=== PATIENT | male | born 1940 | race Caucasian/White ===

== ENCOUNTER → 2016-06-25 | Outpatient (CLI) | payer BC ==
[~2016-06-25] MED LIST: ATEN-173 PO; ENBER15 PO; IBUP-1459 PO; LRT5 PO; OXYC1TAB3 PO; PRLSR20
[2016-06-25 09:32] LABS: BASO % 0.3 %; BASO ABS # 0.02 K/uL (0-0.2); COMPLETE YES; EOS % 3.7 %; HEMATOCRIT 48.7 % (42-52); IG% 0.3 %; MEAN CELL VOLUME 90.2 fL (80-100); MEAN CORPUSCULAR HEMOGLOBIN 30.4 pg (25-34); MEAN CORPUSCULAR HGB CONC 33.7 g/dl (32-36); MEAN PLATELET VOLUME 10.1 fL (7.4-10.4); MONO % 7.9 %; NEUT % 58.8 %; PLATELET COUNT 189 K/uL (130-400); WHITE BLOOD COUNT 7.23 K/uL (4.8-10.8)
[2016-06-25 10:10] LABS: ALT/SGPT 38 U/L (12-78); AST/SGOT 19 U/L (15-37); BLOOD UREA NITROGEN 26 mg/dl (7-18); BUN/CREATININE RATIO 21.4 (10-20); CALCIUM 8.6 mg/dl (8.5-10.1); CARBON DIOXIDE 27 mmol/L (21-32); CHLORIDE 109 mmol/L (98-107); CHOLESTEROL 191 mg/dl (0-200); GLUCOSE 97 mg/dl (70-99); POTASSIUM 4.3 mmol/L (3.5-5.1); SODIUM 142 mmol/L (136-145)
[2016-06-25 10:22] LABS: ALB/GLOB RATIO 1.1 (0.9-2); ALKALINE PHOSPHATASE 87 U/L (45-117); CHOLESTEROL/HDL RATIO 3.7; HDL CHOLESTEROL 51 mg/dl; LDL CHOLESTEROL CALCULATED 119 mg/dl; PROSTATE SPECIFIC ANTIGEN 0.118 ng/ml (0.000-4.000); TRIGLYCERIDES 103 mg/dl (0-150); VERY LOW DENSITY LIPOPROT CALC 21 mg/dl
== END | disposition home or self-care (01) ==
LOC: C.LAB1850 08:27
PROVIDERS: ATTEND Internal Medicine Pulmonary Disease
DX: C61 Malignant neoplasm of prostate (principal); I10 Essential (primary) hypertension; E78.5 Hyperlipidemia, unspecified; G47.33 Obstructive sleep apnea (adult) (pediatric)

== ENCOUNTER → 2017-04-03 | Outpatient (CLI) | payer BC | END | disposition home or self-care (01) | LOC: C.LAB1850 13:19 | PROVIDERS: ATTEND Urology | DX: C61 Malignant neoplasm of prostate (principal) ==

== ENCOUNTER → 2017-06-27 | Outpatient (CLI) | payer BC ==
[2017-06-27 10:24] LABS: BASO % 0.2 %; BASO ABS # 0.01 K/uL (0-0.2); EOS % 3.7 %; EOS ABS # 0.24 K/uL (0-0.5); HEMATOCRIT 47.4 % (42-52); HEMOGLOBIN 16.8 g/dL (14.0-18.0); IG# 0.02 K/uL (0.00-0.02); LYMPH % 27.6 %; MEAN CELL VOLUME 89.3 fL (80-100); MEAN CORPUSCULAR HEMOGLOBIN 31.6 pg (25-34); MEAN CORPUSCULAR HGB CONC 35.4 g/dl (32-36); MEAN PLATELET VOLUME 10.3 fL (7.4-10.4); MONO % 7.8 %; MONO ABS # 0.51 K/uL (0.11-0.59); NEUT % 60.4 %; NEUT ABS # 3.94 K/uL (1.4-6.5); PLATELET COUNT 175 K/uL (130-400); WHITE BLOOD COUNT 6.52 K/uL (4.8-10.8)
[2017-06-27 10:46] LABS: ALBUMIN 3.5 gm/dl (3.4-5.0); ALKALINE PHOSPHATASE 95 U/L (45-117); ALT/SGPT 36 U/L (12-78); AST/SGOT 22 U/L (15-37); BLOOD UREA NITROGEN 21 mg/dl (7-18); CALCIUM 8.5 mg/dl (8.5-10.1); CARBON DIOXIDE 24 mmol/L (21-32); CHOLESTEROL 190 mg/dl (0-200); CREATININE 1.36 mg/dl (0.60-1.40); GLUCOSE 110 mg/dl (70-99); LDL CHOLESTEROL CALCULATED 113 mg/dl; POTASSIUM 4.3 mmol/L (3.5-5.1); SODIUM 140 mmol/L (136-145); TOTAL PROTEIN 7.4 gm/dl (6.4-8.2)
== END | disposition home or self-care (01) ==
LOC: C.LAB1850 09:25
PROVIDERS: ATTEND Internal Medicine Pulmonary Disease
DX: I10 Essential (primary) hypertension (principal); C61 Malignant neoplasm of prostate; G47.33 Obstructive sleep apnea (adult) (pediatric); R41.3 Other amnesia; G62.9 Polyneuropathy, unspecified

== ENCOUNTER → 2017-09-25 | Outpatient (CLI) | payer BC ==
[~2017-09-25] MED LIST changes: +OXYC-90 PO; -OXYC1TAB3 PO
== END | disposition home or self-care (01) ==
LOC: C.LAB1850 11:14
PROVIDERS: ATTEND Urology
DX: R39.9 Unspecified symptoms and signs involving the genitourinary system (principal)

== ENCOUNTER 2019-08-24 10:52 | Observation (INO) ==
--- NOTE | 2019-07-20 15:00 | PAT Medication Instructions ---
Medication Instructions Date of Service July 20, 2019 Home Medications Medication Instructions Recorded atenolol 25 mg tablet 25 mg PO QAM #90 tab 04/30/19 gabapentin 300 mg capsule 300 mg PO HS #90 cap 06/04/19 losartan 100 mg tablet 100 mg PO DAILY #90 tab 07/13/19 aspirin [Aspirin Low Dose] 81 mg PO QAM cholecalciferol (vitamin D3) [Vitamin D3] 2,000 unit PO QAM cyanocobalamin (vitamin B-12) [Vitamin B-12] 1,000 mcg PO QAM mometasone 50 mcg/actuation nasal spray 2 sprays INTRANASAL DAILY PRN Myrbetriq 50 mg PO HS One Daily For Men 1 tab PO QAM clotrimazole-betamethasone 1 appln TOPICAL BID PRN oxybutynin chloride [Ditropan XL] 5 mg PO QAM famotidine 40 mg tablet 40 mg PO UD ibuprofen 200 - 600 mg PO UD PRN atenolol 25 mg tablet 25 mg PO QAM gabapentin 300 mg capsule 300 mg PO HS losartan 100 mg tablet 100 mg PO DAILY ASK your surgeon for instructions ibuprofen 200 - 600 mg PO UD PRN STOP taking 24 hours before surgery clotrimazole-betamethasone 1 appln TOPICAL BID PRN DO NOT take the morning of surgery oxybutynin chloride [Ditropan XL] 5 mg PO QAM losartan 100 mg tablet 100 mg PO DAILY One Daily For Men 1 tab PO QAM cholecalciferol (vitamin D3) [Vitamin D3] 2,000 unit PO QAM cyanocobalamin (vitamin B-12) [Vitamin B-12] 1,000 mcg PO QAM Take morning of surgery With a small sip of water, OTHERWISE NOTHING TO EAT OR DRINK AFTER MIDNIGHT: famotidine 40 mg tablet 40 mg PO UD atenolol 25 mg tablet 25 mg PO QAM mometasone 50 mcg/actuation nasal spray 2 sprays INTRANASAL DAILY PRN aspirin [Aspirin Low Dose] 81 mg PO QAM Take evening before surgery gabapentin 300 mg capsule 300 mg PO HS Myrbetriq 50 mg PO HS Other Notes If you have any questions please call us at [phone] or [phone] or [phone] or [phone]
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
[2019-07-21 12:10] LABS: Basophils # (auto) 0.01 K/uL (0-0.2); Basophils % (auto) 0.2 %; Eosinophils # (auto) 0.18 K/uL (0-0.5); Eosinophils % (auto) 2.9 %; Hematocrit (blood only) 44.9 % (42-52); Hemoglobin 15.5 g/dL (14.0-18.0); Immature Granulocytes # (auto) 0.01 K/uL (0.00-0.02); Immature Granulocytes % (auto) 0.2 %; Lymphocytes # (auto) 1.76 K/uL (1.2-3.4); Lymphocytes % (auto) 27.9 %; Mean Corpuscular Hemoglobin 30.9 pg (25-34); Mean Corpuscular Hgb Conc 34.5 g/dL (32-36); Mean Corpuscular Volume 89.4 fL (80-100); Mean Platelet Volume 9.8 fL (7.4-10.4); Monocytes # (auto) 0.61 K/uL (0.11-0.59); Monocytes % (auto) 9.7 %; Neutrophils # (auto) 3.74 K/uL (1.4-6.5); Neutrophils % (auto) 59.1 %; Platelet Count 208 K/uL (130-400); RDW Standard Deviation 42.2 fL (36.4-46.3); Red Blood Count 5.02 M/uL (4.7-6.1); White Blood Count 6.31 K/uL (4.8-10.8)
[2019-07-21 12:18] LABS: BUN Creatinine Ratio 14.2 (10-20); Calcium 8.9 mg/dl (8.5-10.1); Creatinine Clr Calc Pharmacy 46.2 ml/min; Est GFR (African American) 43.5; Est GFR (Non-African American) 37.5; Potassium 4.4 mmol/L (3.5-5.1)
--- NOTE | 2019-07-21 12:21 | XRay Report ---
XR chest Pre-admission PA/Lat HISTORY: 78 years-old Male pat preoperative exam. No acute chest complaints COMPARISON: Chest radiograph 04/01/2019 TECHNIQUE: PA and lateral views of the chest FINDINGS: Cardiac silhouette is enlarged. No overt pulmonary edema. Mild chronic interstitial coarsening of the lung bases. There is no pneumothorax, pleural effusion or overt pulmonary edema. Degenerative change s of the shoulders and spine. IMPRESSION: No acute process. ACT 112: Negative or not required by law. The above report was generated using voice recognition software. It may contain grammatical, syntax o r spelling errors. Electronically signed by: Nicolas Allen M.D. 07/21/2019 12:20 PM
[2019-07-21 12:22] LABS: Partial Thromboplastin Ratio 1.1; Partial Thromboplastin Time 31.6 Seconds (21.0-31.0)
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
[~2019-08-24 10:52] MED LIST changes: +ACETAMINOPHEN 500 MG TAB PO SCH; -ATEN-173 PO; +CEFAZOLIN 3000MG 72.5 ML IV SCH; -ENBER15 PO; +FAMOTIDINE 20 MG TAB PO SCH; +GABAPENTIN 300 MG CAP PO SCH; -IBUP-1459 PO; +LR 15ML/HR IV SCH; +LR 60ML/HR IV SCH; -LRT5 PO; -OXYC-90 PO; -PRLSR20; +ROPIVACAINE 0.5% HCL/PF 150 MG, BUPIVACAINE 0.5% MPF 30 ML, EPINEPHrine 30MG/30ML (OR U... INFIL SCH; +TRANEXAMIC ACID / 0.7% NACL 1,000 MG/100 ML BAG IV SCH; +TRANEXAMIC ACID 1,000 MG **IV Intra-op IV SCH; +dexAMETHasone 4 MG TAB PO SCH
--- NOTE | 2019-08-24 11:03 | History & Physical Bridge Note ---
Date of Service August 24, 2019 History & Physical Bridge Note I have examined the patient, reviewed the History & Physical and in the interval since the performance of the History & Physical I have noted the following changes of clinical significance: no changes noted
[2019-08-24] MEDS ORDERED: BUPIVACAINE 0.5 % 5 MG/1 ML PF 10ML VIAL ONE (11:22)
[2019-08-24] MEDS ORDERED: ORTHO JOINT ANESTHETIC ONE (12:43)
[2019-08-24] MEDS ORDERED: MIDAZOLAM HCL 1 MG/ML 2ML VIAL ONE (12:48)
[2019-08-24] MEDS ORDERED: ONDANSETRON INJ 2 MG/ML 2 ML VIAL ONE (12:48)
[2019-08-24] MEDS ORDERED: PROPOFOL IV EMULSION 10 MG/ML 20 ML VIAL IV ONE (12:48)
[2019-08-24] MEDS ORDERED: fentaNYL citrate 100 MCG/2 ML VIAL ONE (12:48)
[2019-08-24] MEDS ORDERED: LIDOCAINE HCL 2% 2 ML VIAL/AMP(20MG/ML) INFIL ONE (12:48)
[2019-08-24] MEDS ORDERED: ONDANSETRON INJ 2 MG/ML 2 ML VIAL IV PRN ×3 (13:34→16:52)
[2019-08-24] MEDS ORDERED: HYDROmorphone INJ 1 MG/ML SYRINGE IV PRN ×2 (13:34→13:55)
[2019-08-24] MEDS ORDERED: ATROPINE SULFATE 0.1 MG/ML 10ML SYR IV PRN ×2 (13:34→13:55)
[2019-08-24] MEDS ORDERED: ePHEDrine sulfate 50 MG/ML AMP IV PRN ×2 (13:34→13:55)
[2019-08-24] MEDS ORDERED: fentaNYL citrate 100 MCG/2 ML VIAL IV PRN ×2 (13:34→13:55)
--- NOTE | 2019-08-24 15:31 | Operative Report ---
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 I identified the patient and participated in the time-out.: Yes Procedure Operation Date: 08/24/19 12:55 Actual Procedures p Left Reverse Total Shoulder Arthroplasty with excision of a large lipoma as a separate procedure (modifier 59) (Left) - Mazin Masterson DO Surgeon Mazin Masterson, Musical Instruments Assembler Mazin Galindo PAC Estimated Blood Loss 300 Findings Consistent with Post-Op Diagnosis Specimens Left shoulder lipoma Complications none Disposition Disposition: Recovery Room Indications Elmer is a pleasant 78-year-old male who is been dealing with chronic increasing left shoulder pain. X-rays and clinical examination were diagnostic for advanced osteoarthritis of the left shoulder. After failing extensive conservative treatment, he elected proceed with a left reverse shoulder arthroplasty. Description of Procedure A CPT code modifier 59: There was a 5 cm x 5 cm lipoma in the subcoracoid region of his left shoulder. This was deep to the muscle and fascial layer. This was removed as a distinct and separate procedure. Implants used: I used a [employer] Comprehensive reverse total shoulder arthroplasty system with a size 14 press fit micro humeral stem, a standard humeral tray and a standard humeral bearing, a 28 mm baseplate with a 6.5 mm central screw and superior and inferior locking screws, and a size 40 mm eccentric glenosphere. Elmer arrived at [facility] for the above procedure. He was seen in the preoperative holding area and the operative extremity was identified and signed. He was given a preoperative antibiotic, TXA, and an interscalene nerve block. He was taken back to the operating room, laid on table in supine position, and put under general anesthesia. He was then put into the beachchair position. The shoulder was then prepped and draped in sterile fashion. A timeout was done and the patient and the operative extremity was properly identified. A deltopectoral approach was used. Dissection was taken down through the fascia and the deltoid was retracted laterally and the conjoined tendon was retracted medially. The anterior shoulder was exposed. The biceps groove was opened up and the biceps tendon was missing. There was an obvious traumatic tenotomy. A large lipoma was then herniated from the subcoracoid region. This was deep to the conjoined tendon. The lipoma was carefully excised. Care was taken to do a complete marginal excision. The lipoma measured to be 5 cm x 5 cm. It was then sent to pathology. This was a separate and distinct portion of the procedure. The subscapularis was then directly released off the lesser tuberosity with a peel technique. The inferior capsule was released and the humeral head was dislocated. A canal finding reamer was sent down the center of the humeral canal. Sequential reaming up to a size 14 reamer was done. Off that reamer, a proximal humeral resection guide was placed. The proximal humerus was resected at 135 of inclination and 25 of retroversion. Osteophytes were then removed and the glenoid was exposed. Time was spent doing a complete capsular and labral release. The glenoid guide was then placed in the inferior aspect of the glenoid. A 3.2 mm Steinmann pin was then placed into the glenoid vault at 10 of inclination. The glenoid baseplate was then reamed. The final size 28 mm baseplate was then impacted in the place. A 6.5 mm central screw was then placed followed by superior and inferior locking screws. A 40 mm eccentric glenosphere was then impacted into place. Surrounding soft tissues were then injected with 100 cc an orthopedic pain control cocktail. The proximal humerus was then exposed. Sequential broaching of the humerus up to a size 14 broach was done. Off that broach a standard humeral tray was trialed. The shoulder was then reduced, brought through a full range of motion, and felt to be stable. The shoulder was then dislocated and the broach was removed. The final size 14 micro press-fit humeral stem was then impacted into place. A standard humeral bearing was then snapped onto a standard humeral tray. The humeral tray was then impacted onto the humeral stem. The shoulder was once again reduced, brought through a full range of motion, and felt to be stable. The subscapularis was then tenodesed back to the lesser tuberosity with transosseous FiberWire sutures and side to side sutures with the arm in 45 of external rotation. A dilute betadyne lavage was then done for 3 minutes. The joint was then irrigated with normal saline solution. Hemostasis was obtained. The interval was closed with 2-0 Vicryl suture. The skin was then closed with 2-0 Vicryl and trista. A soft dressing was placed and the arm was rested in a regular arm sling. He was then extubated and transferred to a hospital bed. He taken to the postanesthesia care unit in stable condition. He tolerated the procedure well. Mazin Galindo PA-C, was present for the entire procedure. He was critical for patient positioning, prepping, draping, retraction exposure, wound closure and application of sterile dressing. I attest to the content of the Intraoperative Record and any orders documented therein. Any exceptions are noted below.
--- NOTE | 2019-08-24 16:08 | XRay Report ---
LEFT SHOULDER 2 VIEWS CLINICAL HISTORY: Postoperative examination. FINDINGS: 2 portable views of the left shoulder are obtained. The skeletal structures are osteopenic. A left shoulder arthroplasty is in near-anatomic alignment. No acute fracture is seen. Productive de generative change is noted at the acromioclavicular joint. Skin clips, soft tissue swelling, and subc utaneous gas are expected postoperative findings. IMPRESSION: Expected postoperative findings status post left shoulder arthroplasty. No acute fracture is seen. Electronically signed by: Jacob Jovel M.D. 08/24/2019 4:07 PM
--- NOTE | 2019-08-24 16:32 | Anesthesiology Progress Note ---
Date of Service August 24, 2019 Anesthesia Post Procedure Vital Signs Vital Signs: Temp Pulse Pulse Resp BP Pulse Ox 08/24/19 16:25 69 21 149/69 H 98 08/24/19 16:15 36.2 C L 71 16 151/69 H 97 08/24/19 16:05 73 21 149/80 H 97 08/24/19 15:55 73 17 154/79 H 98 08/24/19 15:47 36.1 C L 76 17 181/83 H 99 08/24/19 12:41 36.5 C 53 L 16 198/79 H 97 08/24/19 11:31 37.0 C 54 L 22 195/77 H 96 Pain Intensity Left Shoulder: Pain Intensity: 2 Transfer of Care Handoff Completed per policy Notes Mental Status: alert / awake / arousable and participated in evaluation Patient Amnestic to Procedure: Yes Nausea / Vomiting: adequately controlled Pain: adequately controlled Airway Patency, RR, SpO2: stable & adequate BP & HR: stable & adequate Hydration State: stable & adequate Anesthetic Complications: no major complications apparent and Pt Satisfied with anesthetic care
[2019-08-24] MEDS ORDERED: MAGNESIUM HYDROXIDE SUSP 30 ML UDC PO PRN (16:52)
[2019-08-24] MEDS ORDERED: METOCLOPRAMIDE HCL INJ 5 MG/ML 2 ML VIAL IV PRN (16:52)
[2019-08-24] MEDS ORDERED: HYDROmorphone INJ 0.5 MG/0.5 ML SYR IV PRN (16:52)
[2019-08-24] MEDS ORDERED: CLOTRIMAZOLE/BETAMETHASONE CR 15 GM TUBE EXT PRN (16:52)
[2019-08-24] MEDS ORDERED: OXYCODONE HCL IR 5 MG TAB (IMMEDIATE RELEASE) PO PRN (16:52)
[2019-08-24] MEDS ORDERED: NALOXONE HCL 0.4 MG/1 ML VIAL/CARP IV PRN (16:52)
[2019-08-24] MEDS ORDERED: bisacodyL 10 MG SUPP PR PRN (16:52)
[2019-08-24] MEDS ORDERED: FLUTICASONE PROPIONATE NA SPR 16 GM BTL PRN (17:12)
[2019-08-24] MEDS: SODIUM CHLORIDE 0.9% 1000ML 1,000 ML IV SCH (17:23)
[2019-08-24] MEDS: KETOROLAC TROMETHAMINE 15 MG/ML VIAL IV SCH (18:52)
[2019-08-24] MEDS: DOCUSATE SODIUM 100 MG CAP PO SCH (20:55)
[2019-08-24] MEDS: ACETAMINOPHEN 500 MG TAB PO SCH (20:56)
[2019-08-24] MEDS ORDERED: GABAPENTIN 300 MG CAP PO SCH (21:00)
[2019-08-24] MEDS ORDERED: SENNA 8.6 MG TAB PO SCH (21:00)
[2019-08-24] MEDS ORDERED: MIRABEGRON ER 25 MG TAB PO SCH (21:00)
[2019-08-24] MEDS: CEFAZOLIN 2000MG 2,000 MG/15 ML SYR IV SCH (21:06)
[2019-08-24] MEDS ORDERED: Nursing to Pharmacy Communication SCH (21:15)
[2019-08-25] MEDS: SODIUM CHLORIDE 0.9% 1000ML 1,000 ML IV SCH (00:57)
[2019-08-25] MEDS: KETOROLAC TROMETHAMINE 15 MG/ML VIAL IV SCH ×2 (00:57→05:29)
[2019-08-25 05:02] LABS: Hematocrit (blood only) 43.9 % (42-52); Hemoglobin 15.5 g/dL (14.0-18.0); Immature Granulocytes # (auto) 0.03 K/uL (0.00-0.02); Immature Granulocytes % (auto) 0.2 %; Lymphocytes # (auto) 1.49 K/uL (1.2-3.4); Lymphocytes % (auto) 9.7 %; Mean Corpuscular Hemoglobin 31.8 pg (25-34); Mean Corpuscular Hgb Conc 35.3 g/dL (32-36); Mean Platelet Volume 9.7 fL (7.4-10.4); Monocytes # (auto) 0.54 K/uL (0.11-0.59); Monocytes % (auto) 3.5 %; Neutrophils # (auto) 13.33 K/uL (1.4-6.5); Neutrophils % (auto) 86.6 %; Platelet Count 196 K/uL (130-400); RDW Coefficient of Variation 13.3 % (11.5-14.5); RDW Standard Deviation 43.1 fL (36.4-46.3); Red Blood Count 4.88 M/uL (4.7-6.1); White Blood Count 15.39 K/uL (4.8-10.8)
[2019-08-25] MEDS: CEFAZOLIN 2000MG 2,000 MG/15 ML SYR IV SCH (05:29)
[2019-08-25] MEDS: ACETAMINOPHEN 500 MG TAB PO SCH (05:29)
[2019-08-25 05:35] LABS: BUN Creatinine Ratio 14.7 (10-20); Calcium 8.4 mg/dl (8.5-10.1); Creatinine Clr Calc Pharmacy 46.5 ml/min; Est GFR (African American) 43.8; Est GFR (Non-African American) 37.8; Potassium 4.3 mmol/L (3.5-5.1)
--- NOTE | 2019-08-25 06:48 | Orthopedic Progress Note ---
Date of Service August 25, 2019 Assessment & Plan (1) History of reverse total replacement of left shoulder joint: Overall he is doing very well. Is not having much pain in the left shoulder. He will be seen by physical therapy this morning for ambulation and range of motion exercises. He can then be discharged home. He will follow-up with orthopedics in 2 weeks. Present on Admission?: Yes Subjective Elmer was seen and examined at bedside this morning. Overall he is doing very well. Is not having any pain in the left shoulder. He was able to get some sleep last night. He has no complaints. Physical Exam Musculoskeletal: On physical examination of the left shoulder, the dressing is clean and dry. He is wearing his sling as instructed. His radial, median, and ulnar nerves are checked and intact at his wrist. His axillary nerve was not checked yet. Results & Data ([facility]) Vital Signs (Past 12 Hours) Vital Signs Temp Pulse Resp BP Pulse Ox 08/25/19 03:16 36.4 C L 71 16 148/83 H 96 08/24/19 23:46 36.6 C 67 16 130/73 94 08/24/19 19:43 36.4 C L 74 17 138/80 94 08/24/19 18:55 36.5 C 74 16 122/68 97 Laboratory Results H & H 07/21/19 08/25/19 Range/Units 11:33 04:48 Hgb 15.5 15.5 (14.0-18.0) g/dL Hct 44.9 43.9 (42-52) % Coagulation 07/21/19 Range/Units 11:33 INR 1.0 (0.9-1.1) Diagnostic Findings Postoperative x-rays of the left shoulder show the prosthesis to be in anatomic alignment without any evidence of fracture, dislocation, or loosening. PG Care Time/CCT Total # of Minutes Spent Total Time Spent with Patient: Total time spent is greater than 50% in coordination of care (as documented) at patient's floor/unit and/or counseling patient: Coding Level of Care Code None Diagnoses History of reverse total replacement of left shoulder joint Z98.890
--- NOTE | 2019-08-25 06:50 | Discharge Summary ---
Date of Service August 25, 2019 Admission HPI Per Admitting Provider Elmer is a pleasant 78-year-old male who is been dealing with chronic increasing left shoulder pain. X-rays and clinical examination have been diagnostic for advanced osteoarthritis of the left shoulder. After failing conservative treatment, he has elected proceed with a left reverse shoulder arthroplasty. Principal Diagnosis Left reverse shoulder arthroplasty Discharge Data Allergies Allergy/AdvReac Type Severity Reaction Status Date / Time No Known Drug Allergies Allergy Verified 08/24/19 11:24 Consultations 08/24/19 16:52 Consult Case Management - Discharge Planning Routine Procedures Performed Operation Date: 08/24/19 12:55 Actual Procedures p Left Reverse Total Shoulder Arthroplasty(Left) - Mazin Masterson DO Ordered Studies 08/24/19 05:00 US - OR guided needle placemen Routine 08/24/19 13:33 US - OR guided needle placemen Routine Hospital Course (1) History of reverse total replacement of left shoulder joint: On August 24, 2019 Elmer arrived at [facility] and underwent a left reverse shoulder arthroplasty without complication. He had a general anesthetic and a left interscalene nerve block. Postoperatively he was placed in an arm sling and transferred to the general orthopedic floors. His hospital course was uneventful. On postop day #1 his H&H was stable and his pain was well controlled. He was able to participate well with physical therapy doing ambulation and range of motion exercises. He was then discharged home. He will follow-up with orthopedics in 2 weeks. Total Time Total Time Spent Total Time Spent (In Minutes): 20 Discharge Plan Discharge Items Patient Disposition: Home - Home Health Services Reason For Visit: Degenerative Joint Disease, Left Shoulder Discharge Diagnosis: Left reverse shoulder arthroplasty Activity: As commented below Non-emergency contact: Surgeon Call non-emergency contact if: your wound has increased redness and your wound has increased drainage Follow-up/Referrals: Elmer Leal MD [Primary Care Provider] - Diet: Regular Addtl Attending Provider Instructions: Activity and Therapy Recommendations: * If you are using [facility] then therapy will be provided at your home until they feel you have accomplished all of your goals. * If you are using [facility] then Physical Therapy will be provided until they feel you are ready to start Outpatient Physical Therapy. * If you are not using home therapy then Outpatient Physical Therapy should start about 3-5 days from your day of surgery. Therapy will last about 8-12 weeks * Wear your sling for 3 weeks, unless otherwise instructed. You may remove your sling to shower and to dress, but otherwise, you should be in your sling at all times, including while sleeping * The shoulder replacement is very stable and you can use your hand while in the sling * You were shown a series of exercises in the hospital. Do these exercises daily including the exercises you were shown in physical therapy. Medications: * Narcotic You will likely be sent home from the hospital with a prescription for the narcotic pain medication that worked best throughout your stay. * Other medications may be prescribed for specific circumstances. If you have any questions, please call the office at . * Resume previous home medications unless otherwise instructed Dressing Care: Leave the Silverlon dressing on for 7 days. After 7 days you may remove the dressing. If the incision is not draining then you may leave the trista open to air. If there is a little bit of drainage or if the trista are getting stuck on your clothing then cover the incision with a dry dressing. The trista will be removed at your 2 week follow-up appointment. Showering: You may shower with the Silverlon dressing in place. Do not scrub or soak the dressing. After 7 days you may remove the dressing and shower with the trista exposed. Let the soapy shower water run over the trista and pat them dry. Do not scrub or soak the incision. Things To Watch For: * Drainage from the incision site that occurs more than one week after your surgery. * Increased redness at the incision site. * Fever above 102 degrees Fahrenheit. * Unusual chest pain or shortness of breath. * Call [facility] at with any of the above problems Follow-Up Visit: Follow-up with Dr. Masterson's PA (Mazin Galindo) 2-3 weeks after your day of surgery. He will remove your trista and answer any questions. If you have any additional questions or concerns, Dr Masterson is usually in the office at the same time and will be available An appointment was probably scheduled when you signed-up for surgery in the office. If you have any questions call More detailed instructions as well as Frequently Asked Questions were provided in a folder by our office when you signed-up for surgery. Please review these instructions when you get home. If you have any further questions or concerns, please feel free to call the office at [phone] Pending Studies at Discharge: No Stand-Alone Forms: My [facility] Medications and DC Order Prescriptions: New oxycodone 5 mg tablet 5 mg PO Q6H PRN (Reason: pain) Qty: 30 RF: 0 Continued famotidine [Pepcid] 40 mg tablet 40 mg PO UD RF: 0 gabapentin 300 mg capsule 300 mg PO HS Qty: 90 RF: 3 losartan 100 mg tablet 100 mg PO DAILY Qty: 90 RF: 3 atenolol 25 mg tablet 25 mg PO QAM Qty: 90 RF: 3 mometasone [Nasonex] 50 mcg/actuation spray,non-aerosol 2 sprays intranasal DAILY PRN (Reason: Congestion) Qty: 3 RF: 0 cyanocobalamin (vitamin B-12) [Vitamin B-12] 1,000 mcg Tablet 1,000 mcg PO QAM RF: 0 aspirin [Aspirin Low Dose] 81 mg Tablet,Delayed Release (Dr/Ec) 81 mg PO QAM RF: 0 cholecalciferol (vitamin D3) [Vitamin D3] 2,000 unit Capsule 2,000 unit PO QAM RF: 0 One Daily For Men 0.4-600 mg-mcg Tablet 1 tab PO QAM RF: 0 clotrimazole-betamethasone 1-0.05 % cream 1 appln topical BID PRN (Reason: rash/itching) RF: 0 oxybutynin chloride [Ditropan XL] 5 mg tablet extended release 24hr 5 mg PO QAM RF: 0 Myrbetriq 50 mg tablet extended release 24 hr 50 mg PO HS RF: 0 ibuprofen 200 mg Capsule 200 - 600 mg PO UD PRN (Reason: Pain) RF: 0 acetaminophen [Tylenol Arthritis Pain] 650 mg Tablet Extended Release 1,300 mg PO BID RF: 0 Discharge Orders: Discharge Order (Routine); Ordered 08/25/19 Ordered By: Mazin Masterson Admission Data Admit Date/Time: 08/24/19 15:44 Attending Provider: Mazin Masterson Admit Provider: Mazin Masterson Primary Care Provider: Elmer Leal Coding Level of Care Code D/C Day Management <30 mins Diagnoses History of reverse total replacement of left shoulder joint Z98.890
[2019-08-25] MEDS: DOCUSATE SODIUM 100 MG CAP PO SCH (07:19)
[2019-08-25] MEDS ORDERED: dexAMETHasone 4 MG TAB PO SCH (08:00)
[2019-08-25] MEDS ORDERED: OXYBUTYNIN CHLORIDE XL 5 MG TABCR PO SCH (09:00)
[2019-08-25] MEDS ORDERED: ASPIRIN 81 MG ECTAB PO SCH (09:00)
[2019-08-25] MEDS ORDERED: ATENOLOL 25 MG TABLET PO SCH (09:00)
[2019-08-25] MEDS ORDERED: LOSARTAN POTASSIUM 50 MG TAB PO SCH (09:00)
[2019-08-25] MEDS ORDERED: MULTIVITAMIN TAB PO SCH (09:00)
[2019-08-25] MEDS ORDERED: FAMOTIDINE 40 MG TABLET PO SCH (21:00)
== END 2019-08-25 11:00 | disposition home health service (06) ==
LOC: ASU 10:52 → 3E 15:44 → INTOOBSV 15:44

== ENCOUNTER 2022-01-31 15:24 | Inpatient (IN) ==
[2022-01-31 15:54] LABS: Basophils # (auto) 0.02 K/uL (0-0.2); Basophils % (auto) 0.3 %; Eosinophils # (auto) 0.21 K/uL (0-0.50); Eosinophils % (auto) 2.7 %; Hematocrit (blood only) 49.5 % (40.1-51.0); Hemoglobin 17.3 g/dl (14.0-18.0); Immature Granulocytes # (auto) 0.02 K/uL (0.00-0.02); Immature Granulocytes % (auto) 0.3 %; Lymphocytes # (auto) 2.21 K/uL (1.2-3.4); Lymphocytes % (auto) 28.7 %; Mean Corpuscular Hemoglobin 31.1 pg (25.0-34.0); Mean Corpuscular Hgb Conc 34.9 g/dL (32.0-36.0); Mean Platelet Volume 9.8 fL (9.4-12.4); Monocytes # (auto) 0.57 K/uL (0.24-0.82); Monocytes % (auto) 7.4 %; Neutrophils # (auto) 4.67 K/uL (1.4-6.5); Neutrophils % (auto) 60.6 %; Platelet Count 177 K/uL (130-400); RDW Coefficient of Variation 12.5 % (11.5-14.5); RDW Standard Deviation 41.3 fL (36.4-46.3); Red Blood Count 5.56 M/uL (4.63-6.08)
[2022-01-31 16:05] LABS: Partial Thromboplastin Ratio 1.1; Partial Thromboplastin Time 31.3 Seconds (21.0-31.0); Prothrombin Time 11.1 Seconds (9.0-12.0)
[2022-01-31 16:33] LABS: Troponin I High Sensitivity 10.9 pg/ml (0-20)
[2022-01-31 16:36] LABS: Albumin Globulin Ratio 1.4 (0.9-2); Albumin Level 4.5 gm/dl (3.4-5.0); BUN Creatinine Ratio 18.8 (10-20); Bilirubin,Total 0.7 mg/dl (0.2-1.0); Calcium 9.6 mg/dl (8.5-10.1); Creatinine Clr Calc Pharmacy 65.6 ml/min; Est GFR (African American) 68.3 ml/min; Est GFR (Non-African American) 58.9 ml/min; Globulin 3.2 gm/dl (2.5-4.0); Magnesium 1.9 mg/dl (1.7-2.4); Potassium 3.9 mmol/L (3.5-5.1); Total Protein 7.7 gm/dl (6.0-8.3)
--- NOTE | 2022-01-31 16:57 | XRay Report ---
XR chest 1V portable CLINICAL HISTORY: Chest pain, nonspecific TECHNIQUE: Single frontal radiograph of the chest was obtained. Comparison: Comparison is made to chest radiograph 07/21/2019 FINDINGS: No lines and tubes are seen. The cardiomediastinal silhouette is normal. The lungs are clear. No evid ence of pleural effusion or pneumothorax. Left shoulder reverse arthroplasty is seen. IMPRESSION: No acute chest disease. ACT 112: Negative or not required by law. Electronically signed by: Noe Benjamin M.D. 01/31/2022 4:55 PM
[2022-01-31 17:36] LABS: Lyme Ab IgG w/WB Rflx Negative (Negative)
--- NOTE | 2022-01-31 17:50 | Emergency Department Note ---
Impression & Plan Syncope and collapse, Dysrhythmia, cardiac ED Provider Note INFORMANT: Patient ED PROVIDER(S): Elmer Acevedo MD CHIEF COMPLAINT: Syncope and abnormal heart monitor PLAN: Disposition: Admitted Condition: Good Outpatient prescription management: none Referral: None MEDICAL DECISION MAKING: Patient presented because of outpatient cardiac monitoring that was abnormal. He did not have any syncopal events. He was found to have a 15-second pause. On evaluation in the ER, the patient is hypertensive but vital signs are stable otherwise. Cardiac monitoring and EKG did not reveal any evidence of significant dysrhythmia. I discussed the case with Dr. Robinson Britt of [facility] cardiology. He recommended inpatient admission and evaluation by Dr. Barlow for possible pacemaker. I discussed case with Dr. Rahman of the hospital service. Patient was evaluated in the ER and admitted for further management. Triage Nursing notes reviewed and agree them. Vital Signs: reviewed and remarkable for hypertension Differential diagnosis: Dysrhythmia, premature contractions, electrolyte abnormality, cardiac dysrhythmia, thyroid dysfunction, pulmonary embolism, 1 infection, gastrointestinal, as well as other pathologies. Diagnostics interpreted by me: ECG: Twelve-lead ECG reveals sinus bradycardia 59 bpm. Nonspecific interventricular conduction block present. No ST elevation or depression. No PVCs. Cardiac Monitoring: Cardiac monitoring ordered by me: The patient was placed on continuous cardiac monitoring and observed. It revealed a normal sinus rhythm at 82 beats per minute without ectopy or evidence of dysrhythmia. Imaging studies: Chest x-ray. Findings: A chest x-ray was performed and revealed no pneumothorax, effusion, infiltrate, pulmonary edema, free air under the diaphragm, or wide mediastinum. Impression: No acute disease. HPI: The patient is a 81year old male who presents to the Emergency Room with complaints of abnormal cardiac outpatient monitor event. Patient has been dealing with syncopal events. Outpatient evaluation was done. Cardiology recommended monitoring. This was ordered by the primary clinic. Patient was found to have a 15-second pause last night. He was directed to the ER for further management. The patient also notes the following associated symptoms, intermittent dizziness. The patient has been prescribed no medication for relieving factors. Current pain is rated 0/10. Denies any tick bites. Pt denies headache, fevers, chills, diaphoresis, visual changes, neck pain, chest pain, breathing difficulties, nausea, vomiting, abdominal pain, back pain, melena, hematochezia, urinary symptoms, numbness, weakness, lymphadenopathy, rash, or other complaints. ROS: See above HPI for pertinent positives & negatives. A total of 10 systems reviewed and were otherwise negative. PAST MEDICAL HISTORY:See Below , hypertension PAST SURGICAL HISTORY:See Below, FAMILY HISTORY:See Below SOCIAL HISTORY:See Below, HOME MEDICATIONS:See Below ALLERGIES:See Below VITALS:See Below PHYSICAL EXAMINATION: GENERAL: Awake, alert, well-appearing, in no distress HENT: Normocephalic, atraumatic. Oropharynx unremarkable. EYES: Normal conjunctiva. Sclera non-icteric. NECK: Inspection normal. Non-tender. Supple. No nuchal rigidity. FROM. No masses. RESPIRATORY: Clear to auscultation. No wheezes. No rales. Normal respiratory effort. CARDIAC: Normal rate. Normal rhythm. No murmurs. No rubs. Extremities warm and well perfused. Pulses equal. No JVD. GI: Soft, non-distended. No tenderness to palpation. No rebound or guarding. No masses. RECTAL: Deferred. MUSCULOSKELETAL: Atraumatic. Chest examination reveals no tenderness. The back is symmetrical on inspection without obvious abnormality. There is no CVA tenderness to palpation. No joint edema. LOWER EXTREMITIES: Calves are equal size bilaterally and non-tender. 1+ edema. No discoloration. NEURO: Normal sensorium. No sensory or motor deficits noted. SKIN: No rash or jaundice noted. Elmer Acevedo MD Past Med/Surg History Medical History Abnormal EKG HX OF 1 YR AGO, CARDIO EVAL - NO FINDINGS...FOLLOWS KIP HARINI Cardiac murmur Dyslipidemia GERD (gastroesophageal reflux disease) Controlled and stable Hearing deficit Kidney stones No current issues Memory loss SHORT TERM MEMORY ISSUES, EVAL DONE 5 YR AGO - NO FINDINGS, NO WORSENING Of PROBLEM OVER LAST 5 YR Neoplasm of prostate, malignant HX OF 2003 CESAR (obstructive sleep apnea) Wears CPAP Osteoarthritis, shoulder SNHL (sensorineural hearing loss) Urinary incontinence Artificial urethral sphincter implanted recently - follows with urology with [facility] Surgical History History of bilateral cataract extraction History of bladder surgery bladder sling placed in 2006 History of carpal tunnel surgery of right wrist History of colonoscopy (~2007) History of lithotripsy History of lymph node biopsy History of prostatectomy 12/28/2003 History of reverse total replacement of left shoulder joint (~08/2019) History of surgery URETHRAL CUFF 07/08/2019 [facility] History of tonsillectomy and adenoidectomy History of wisdom tooth extraction Hx of vasectomy Status post bilateral foot surgery FOR INGROWN TOENAILS Family History Mother , 83yo Diabetes H/O angioplasty Stroke Father , 79yo Cirrhosis of liver Lung cancer Alcoholic Sister Stroke Son Schizophrenia Bipolar disorder PTSD (post-traumatic stress disorder) Daughter Not currently working due to disabled status As a result of an MVA Other No family history of adverse response to anesthesia Denies family history of Clotting disorder Social History Smoking Status: Never smoker Second Hand Exposure: Yes (father smoked); Hx Alcohol Use: Yes (Social ) Alcohol type: beer and hard liquor Hx Substance Use: No Preferred Language: Latvian Communication Ability: Effective Visual Impairment: No Limitations Hearing Ability: Hard of Hearing Carbonation Equipment Operator Required: No Beliefs That Will Affect Care: None marital status: Current Living Situation: Spouse and Family Current Living Situation Comment: AND DAUGHTER 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[employer] Safe at Home: Yes caffeine: Yes (Irregular use;) during the past year weight has: decreased > 10 lbs Assistive Devices: Glasses and Hearing Aid - Bilateral Allergies Allergies Allergy/AdvReac Type Severity Reaction Status Date / Time No Known Drug Allergies Allergy Unknown Verified 01/31/22 17:10 Home Meds Home Medications Medication Instructions Recorded Confirmed aspirin 81 mg tablet,delayed 81 mg PO QAM 04/02/18 01/31/22 release (Josey Low Dose Aspirin) cholecalciferol (vitamin D3) 50 2,000 unit PO QAM 04/02/18 01/31/22 mcg (2,000 unit) capsule (Vitamin D3) cyanocobalamin (vitamin B-12) 1,000 mcg PO QAM 04/02/18 01/31/22 1,000 mcg tablet (Vitamin B-12) clotrimazole-betamethasone 1 1 appln topical BID PRN 04/01/19 01/31/22 %-0.05 % topical cream rash/itching multivit with minerals-folic 1 tab PO QAM 04/01/19 01/31/22 acid-lycopene 0.4 mg-600 mcg tablet (One Daily For Men) ibuprofen 200 mg capsule 200 - 600 mg PO UD PRN Pain 04/29/19 01/31/22 Previous Rx's Medication Instructions Recorded CPAP Machine #1 ea 04/12/21 amlodipine 5 mg tablet 5 mg PO DAILY #30 tabs 04/12/21 losartan 100 mg tablet 100 mg PO DAILY #90 tabs 07/03/21 gabapentin 300 mg capsule 300 mg PO BID 90 days #180 caps 08/15/21 mirabegron 50 mg tablet,extended 50 mg PO HS #90 tabs 12/14/21 release 24 hr (Myrbetriq) oxybutynin chloride 5 mg 5 mg PO QAM #90 tabs 12/14/21 tablet,extended release 24 hr (Ditropan XL) Results & Data (ED) Vital Signs Vital Signs - 24 hr 01/31/22 15:29 01/31/22 16:52 01/31/22 17:15 Temperature 36.0 C L Temperature Source Oral Pulse Rate 52 L 82 Pulse Rate [Right Finger] 61 Pulse Rate from SpO2 Sensor 66 Respiratory Rate 20 16 Respiratory Effort / Characteristics Non-Labored Spontaneous Respiratory Depth Normal Respiratory Pattern Regular Blood Pressure 205/87 H 184/81 H Blood Pressure [Right Arm] 165/76 H Blood Pressure Mean 126 115 Blood Pressure Mean [Right Arm] 105 Pulse Oximetry 99 99 97 Oxygen Delivery Method Room Air Room Air Room Air Sepsis Recent Fever Within 48 Hours No Sepsis New/Unexplained Change in Mental Status N/A Sepsis Action Taken by Nursing No Action Required 01/31/22 18:01 01/31/22 18:11 Temperature Temperature Source Pulse Rate Pulse Rate [Right Finger] 64 Pulse Rate from SpO2 Sensor Respiratory Rate Respiratory Effort / Characteristics Respiratory Depth Respiratory Pattern Blood Pressure Blood Pressure [Right Arm] 179/76 H Blood Pressure Mean Blood Pressure Mean [Right Arm] 110 Pulse Oximetry 96 96 Oxygen Delivery Method Room Air Room Air Sepsis Recent Fever Within 48 Hours Sepsis New/Unexplained Change in Mental Status Sepsis Action Taken by Nursing Laboratory Data Result diagrams: 01/31/22 15:45 12/21/22 15:45 Lab Results 01/31/22 01/31/22 01/31/22 Range/Units 15:45 15:45 15:45 WBC 7.70 (4.8-10.8) K/ul RBC 5.56 (4.63-6.08) M/uL Hgb 17.3 (14.0-18.0) g/dl Hct 49.5 (40.1-51.0) % MCV 89.0 (80.0-100.0) fL MCH 31.1 (25.0-34.0) pg MCHC 34.9 (32.0-36.0) g/dL RDW Std Deviation 41.3 (36.4-46.3) fL RDW Coeff of Jennifer 12.5 (11.5-14.5) % Plt Count 177 (130-400) K/uL MPV 9.8 (9.4-12.4) fL Immature Gran % (Auto) 0.3 % Neut % (Auto) 60.6 % Lymph % (Auto) 28.7 % Bullock % (Auto) 7.4 % Eos % (Auto) 2.7 % Baso % (Auto) 0.3 % Neut # (Auto) 4.67 (1.4-6.5) K/uL Lymph # (Auto) 2.21 (1.2-3.4) K/uL Bullock # (Auto) 0.57 (0.24-0.82) K/uL Eos # (Auto) 0.21 (0-0.50) K/uL Baso # (Auto) 0.02 (0-0.2) K/uL Immature Gran # (Auto) 0.02 (0.00-0.02) K/uL PT 11.1 (9.0-12.0) Seconds INR 1.0 (0.9-1.1) APTT 31.3 H (21.0-31.0) Seconds PTT Ratio 1.1 Sodium 139 (136-145) mmol/L Potassium 3.9 (3.5-5.1) mmol/L Chloride 106 (98-107) mmol/L Carbon Dioxide 26 (21-32) mmol/L Anion Gap 7 (3-11) BUN 22 (6-23) mg/dl Creatinine 1.17 (0.6-1.4) mg/dl Est Cr Clr Drug Dosing 65.6 ml/min Est GFR ( Amer) 68.3 ml/min Est GFR (Non-Af Amer) 58.9 ml/min BUN/Creatinine Ratio 18.8 (10-20) Glucose 91 (70-99(Fasting)) mg/dl Calcium 9.6 (8.5-10.1) mg/dl Magnesium 1.9 (1.7-2.4) mg/dl Total Bilirubin 0.7 (0.2-1.0) mg/dl AST 21 (13-39) U/L ALT 19 (7-52) U/L Alkaline Phosphatase 94 (34-104) U/L Troponin I High Sens 10.9 (0-20) pg/ml Total Protein 7.7 (6.0-8.3) gm/dl Albumin 4.5 (3.4-5.0) gm/dl Globulin 3.2 (2.5-4.0) gm/dl Albumin/Globulin Ratio 1.4 (0.9-2) TSH (0.300-4.500) uIu/ml Lyme Disease IgG Ab (Negative) Lyme Disease IgM Ab (Negative) SARS-CoV-2, RNA, NAAT (NEGATIVE) 01/31/22 01/31/22 01/31/22 Range/Units 15:45 15:45 Unknown WBC (4.8-10.8) K/ul RBC (4.63-6.08) M/uL Hgb (14.0-18.0) g/dl Hct (40.1-51.0) % MCV (80.0-100.0) fL MCH (25.0-34.0) pg MCHC (32.0-36.0) g/dL RDW Std Deviation (36.4-46.3) fL RDW Coeff of Jennifer (11.5-14.5) % Plt Count (130-400) K/uL MPV (9.4-12.4) fL Immature Gran % (Auto) % Neut % (Auto) % Lymph % (Auto) % Bullock % (Auto) % Eos % (Auto) % Baso % (Auto) % Neut # (Auto) (1.4-6.5) K/uL Lymph # (Auto) (1.2-3.4) K/uL Bullock # (Auto) (0.24-0.82) K/uL Eos # (Auto) (0-0.50) K/uL Baso # (Auto) (0-0.2) K/uL Immature Gran # (Auto) (0.00-0.02) K/uL PT (9.0-12.0) Seconds INR (0.9-1.1) APTT (21.0-31.0) Seconds PTT Ratio Sodium (136-145) mmol/L Potassium (3.5-5.1) mmol/L Chloride (98-107) mmol/L Carbon Dioxide (21-32) mmol/L Anion Gap (3-11) BUN (6-23) mg/dl Creatinine (0.6-1.4) mg/dl Est Cr Clr Drug Dosing ml/min Est GFR ( Amer) ml/min Est GFR (Non-Af Amer) ml/min BUN/Creatinine Ratio (10-20) Glucose (70-99(Fasting)) mg/dl Calcium (8.5-10.1) mg/dl Magnesium (1.7-2.4) mg/dl Total Bilirubin (0.2-1.0) mg/dl AST (13-39) U/L ALT (7-52) U/L Alkaline Phosphatase (34-104) U/L Troponin I High Sens (0-20) pg/ml Total Protein (6.0-8.3) gm/dl Albumin (3.4-5.0) gm/dl Globulin (2.5-4.0) gm/dl Albumin/Globulin Ratio (0.9-2) TSH 1.463 (0.300-4.500) uIu/ml Lyme Disease IgG Ab Negative (Negative) Lyme Disease IgM Ab Equivocal A (Negative) SARS-CoV-2, RNA, NAAT NEGATIVE (NEGATIVE) Imaging Data Radiologist's Impression: Chest X-Ray 01/31/22 15:34 XR chest 1V portable CLINICAL HISTORY: Chest pain, nonspecific TECHNIQUE: Single frontal radiograph of the chest was obtained. Comparison: Comparison is made to chest radiograph 07/21/2019 FINDINGS: No lines and tubes are seen. The cardiomediastinal silhouette is normal. The lungs are clear. No evidence of pleural effusion or pneumothorax. Left shoulder reverse arthroplasty is seen. IMPRESSION: No acute chest disease. ACT 112: Negative or not required by law. Electronically signed by: Noe Benjamin M.D. 01/31/2022 4:55 PM Discharge Plan Visit Data Chief Complaint: Referred by Doctor Stated Complaint: HEART MONITOR EVENT, REFERRED BY DOCTOR ED Provider: Elmer Acevedo Discharge Problem: Syncope and collapse, Dysrhythmia, cardiac Forms Stand Alone Forms: My [facility] [employer] Prescriptions Prescriptions: No Action losartan 100 mg tablet 100 mg PO DAILY Qty: 90 3RF amlodipine 5 mg tablet 5 mg PO DAILY Qty: 30 11RF (DME) CPAP Machine Misc See Rx Instructions .MEDSUPPLY Qty: 1 0RF Rx Instructions: Auto CPAP 5-20 cm water pressure with heated humidification, tubing, and supplies. SHANELLE: 99+ years. Myrbetriq 50 mg tablet extended release 24 hr 50 mg PO HS Qty: 90 3RF oxybutynin chloride [Ditropan XL] 5 mg tablet extended release 24hr 5 mg PO QAM Qty: 90 3RF gabapentin 300 mg capsule 300 mg PO BID 90 Days Qty: 180 3RF cyanocobalamin (vitamin B-12) [Vitamin B-12] 1,000 mcg Tablet 1,000 mcg PO QAM aspirin [Josey Low Dose Aspirin] 81 mg Tablet,Delayed Release (Dr/Ec) 81 mg PO QAM cholecalciferol (vitamin D3) [Vitamin D3] 2,000 unit Capsule 2,000 unit PO QAM One Daily For Men 0.4-600 mg-mcg Tablet 1 tab PO QAM clotrimazole-betamethasone 1-0.05 % cream 1 appln topical BID PRN (Reason: rash/itching) ibuprofen 200 mg Capsule 200 - 600 mg PO UD PRN (Reason: Pain) Referrals Referrals: Elmer Leal MD [Primary Care Provider] -
[2022-01-31 17:51] LABS: Lyme Ab IgM w/WB Rflx Equivocal (Negative)
--- NOTE | 2022-01-31 18:08 | History & Physical Report ---
Date of Service January 31, 2022 Assessment & Plan (1) Sinus pause: Plan: Sinus pause of up to 15s noted on MCOT correlating with symptoms of syncope over the last few days. On monitor, he is having frequent pauses of up to 3-4 seconds while in the room. - Cardiology EP consulted -> Dr. Barlow is in-house doing procedures tomorrow and will be able to evaluate and possibly insert pacemaker. - NPO @ midnight - Monitor on telemetry, though even with sinus pauses up to 3-4 seconds, patient is minimally symptomatic. (2) Syncope and collapse: Plan: Presumed due to above. - Telemetry (3) Urinary incontinence: Plan: Due to hx of prostate cancer in 2003. Has artificial urethral sphincter. MUST OPEN ARTIFICIAL SPHINCTER PRIOR TO INSERTING VOSS IF HE NEEDS ONE. - Continue home mirabegron & oxybutynin (4) Hypertension: Plan: BP as high as 180/75 in the ER. - Continue home amlodipine & losartan (5) Obstructive sleep apnea: Plan: Uses auto-CPAP at home. - CPAP 5 mcH20 (6) Neuropathy: Plan: - Continue home gabapentin (7) DVT prophylaxis: Plan: SCDs - Hold heparin for procedure tomorrow hopefully. FULL CODE - Per patient with in room and in agreement. History of Present Illness Primary Care Provider: Elmer Leal MD 81-year-old male with a history of hypertension and bladder dysfunction who presents with syncope and sinus pauses. The patient reports that he was in his normal state of health up until about 2 days ago, when he had 3 separate syncopal events. The first episode when he was walking uphill. He reports he was "really hustling" and does not remember falling at all. He got up from the ground, and continued walking towards his house, and passed out a second time. He did not have another episode for several days, but then again passed out while walking with his neighbor. He does not have any prodrome of symptoms that he can recall to me this evening. He does not have any chest pain, li ghtheadedness, dizziness, shortness of breath, or other symptoms. Two days ago, the patient saw his PCP for these episodes. His atenolol was stopped at that time, and he was started on an MCOT. Today, he was called by the monitoring company and told to present to the hospital for a sinus pause of upwards of 15 seconds. At times he reports a "tingling sensation" at the back of his head, but otherwise denies presyncopal symptoms. Allergies Allergy/AdvReac Type Severity Reaction Status Date / Time No Known Drug Allergies Allergy Unknown Verified 01/31/22 17:10 Home Medications Medication Instructions Recorded Confirmed Type aspirin 81 mg tablet,delayed 81 mg PO QAM 04/02/18 01/31/22 History release (Josey Low Dose Aspirin) cholecalciferol (vitamin D3) 50 2,000 unit PO QAM 04/02/18 01/31/22 History mcg (2,000 unit) capsule (Vitamin D3) cyanocobalamin (vitamin B-12) 1,000 mcg PO QAM 04/02/18 01/31/22 History 1,000 mcg tablet (Vitamin B-12) clotrimazole-betamethasone 1 1 appln topical BID PRN 04/01/19 01/31/22 History %-0.05 % topical cream rash/itching multivit with minerals-folic 1 tab PO QAM 04/01/19 01/31/22 History acid-lycopene 0.4 mg-600 mcg tablet (One Daily For Men) ibuprofen 200 mg capsule 200 - 600 mg PO UD PRN Pain 04/29/19 01/31/22 History CPAP Machine #1 ea 04/12/21 01/31/22 Rx amlodipine 5 mg tablet 5 mg PO DAILY #30 tabs 04/12/21 01/31/22 Rx losartan 100 mg tablet 100 mg PO DAILY #90 tabs 07/03/21 01/31/22 Rx gabapentin 300 mg capsule 300 mg PO BID 90 days #180 caps 08/15/21 01/31/22 Rx mirabegron 50 mg tablet,extended 50 mg PO HS #90 tabs 12/14/21 01/31/22 Rx release 24 hr (Myrbetriq) oxybutynin chloride 5 mg 5 mg PO QAM #90 tabs 12/14/21 01/31/22 Rx tablet,extended release 24 hr (Ditropan XL) Past Med/Surg History Medical History Abnormal EKG HX OF 1 YR AGO, CARDIO EVAL - NO FINDINGS...FOLLOWS KIP HARINI Cardiac murmur Dyslipidemia GERD (gastroesophageal reflux disease) Controlled and stable Hearing deficit Kidney stones No current issues Memory loss SHORT TERM MEMORY ISSUES, EVAL DONE 5 YR AGO - NO FINDINGS, NO WORSENING Of PROBLEM OVER LAST 5 YR Neoplasm of prostate, malignant HX OF 2003 CESAR (obstructive sleep apnea) Wears CPAP Osteoarthritis, shoulder SNHL (sensorineural hearing loss) Urinary incontinence Artificial urethral sphincter implanted recently - follows with urology with [facility] Surgical History History of bilateral cataract extraction History of bladder surgery bladder sling placed in 2005 History of carpal tunnel surgery of right wrist History of colonoscopy (~2007) History of lithotripsy History of lymph node biopsy History of prostatectomy 12/28/2003 History of reverse total replacement of left shoulder joint (~08/2019) History of surgery URETHRAL CUFF 07/08/2019 [facility] History of tonsillectomy and adenoidectomy History of wisdom tooth extraction Hx of vasectomy Status post bilateral foot surgery FOR INGROWN TOENAILS Family History Mother , 83yo Diabetes H/O angioplasty Stroke Father , 79yo Cirrhosis of liver Lung cancer Alcoholic Sister Stroke Son Schizophrenia Bipolar disorder PTSD (post-traumatic stress disorder) Daughter Not currently working due to disabled status As a result of an MVA Other No family history of adverse response to anesthesia Denies family history of Clotting disorder Social History Smoking Status: Never smoker Second Hand Exposure: Yes (father smoked); Hx Alcohol Use: Yes (Social ) Alcohol type: beer and hard liquor Hx Substance Use: No Preferred Language: Peruvian Communication Ability: Effective Visual Impairment: No Limitations Hearing Ability: Hard of Hearing Hr Advisor Required: No Beliefs That Will Affect Care: None marital status: Current Living Situation: Spouse and Family Current Living Situation Comment: AND DAUGHTER 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 [employer] Feels Safe at Home: Yes caffeine: Yes (Irregular use;) during the past year weight has: decreased > 10 lbs Assistive Devices: Glasses and Hearing Aid - Bilateral Review of Systems Review of Systems: All systems reviewed & are unremarkable except as noted in HPI & below Physical Exam Constitutional: WD/WN, vitals as above Eyes: EOM intact bilaterally; no conjunctival abnormality ENMT: external ear and nose normal, oropharynx normal Neck: trachea midline, no thyromegaly normal visual inspection Respiratory: normal respiratory effort, lungs clear to auscultation no respiratory distress Cardiovascular: Rate/Rhythm: + bradycardic and + irregularly irregular Sinus with frequent pauses of several seconds Gastrointestinal (Abdomen): Inspection/Auscultation: abdomen normal to inspection; abdomen not distended Musculoskeletal: no cyanosis or clubbing, extremities motor strength 5/5 Skin: no rashes, warm and dry Neurologic: moves all extremities and awake Psychiatric: Orientation: alert, oriented to person and cooperative Results & Data Results & Data ([facility]) Vital Signs (Past 12 Hours) Vital Signs Temp Pulse Pulse Resp BP BP Pulse Ox 01/31/22 17:15 82 16 184/81 H 97 01/31/22 16:52 61 165/76 H 99 01/31/22 15:29 36.0 C L 52 L 20 205/87 H 99 O2 Del Method 01/31/22 17:15 Room Air 01/31/22 16:52 Room Air 01/31/22 15:29 Room Air Code Status & VTE Plan VTE Prophylaxis Plan VTE Prophylaxis will be ordered: Yes PG Care Time/CCT Total # of Minutes Spent Total Time Spent with Patient: Total time spent is greater than 50% in coordination of care (as documented) at patient's floor/unit and/or counseling patient: Coding Level of Care Code 08449 Initial Inpt Care Lvl 3 Diagnoses Sinus pause I45.5 Syncope and collapse R55 Urinary incontinence R32 Hypertension I10 Obstructive sleep apnea G47.33 Neuropathy G62.9 DVT prophylaxis Z29.9
[2022-01-31] MEDS ORDERED: ACETAMINOPHEN 325 MG TAB PO PRN (21:14)
[2022-01-31] MEDS ORDERED: ONDANSETRON INJ 2 MG/ML 2 ML VIAL IV PRN (21:14)
[2022-01-31] MEDS: GABAPENTIN 300 MG CAP PO SCH (22:23)
[2022-01-31] MEDS: MIRABEGRON ER 25 MG TAB PO SCH (22:23)
[2022-02-01] MEDS: LOSARTAN POTASSIUM 50 MG TAB PO SCH (07:52)
[2022-02-01] MEDS: amLODIPine BESYLATE 5 MG TAB PO SCH (07:52)
[2022-02-01] MEDS: OXYBUTYNIN CHLORIDE XL 5 MG TABCR PO SCH (07:52)
[2022-02-01] MEDS: GABAPENTIN 300 MG CAP PO SCH ×2 (07:53→20:32)
[2022-02-01 08:48] LABS: Hematocrit (blood only) 47.7 % (40.1-51.0); Hemoglobin 16.9 g/dl (14.0-18.0); Mean Corpuscular Hgb Conc 35.4 g/dL (32.0-36.0); Mean Corpuscular Volume 87.5 fL (80.0-100.0); Platelet Count 177 K/uL (130-400); RDW Coefficient of Variation 12.3 % (11.5-14.5); RDW Standard Deviation 39.3 fL (36.4-46.3); Red Blood Count 5.45 M/uL (4.63-6.08); White Blood Count 6.41 K/ul (4.8-10.8)
[2022-02-01 09:20] LABS: BUN Creatinine Ratio 15.5 (10-20); Calcium 8.8 mg/dl (8.5-10.1); Creatinine Clr Calc Pharmacy 65.5 ml/min; Est GFR (Non-African American) 59.6 ml/min; Magnesium 1.9 mg/dl (1.7-2.4); Potassium 3.9 mmol/L (3.5-5.1)
[2022-02-01] MEDS ORDERED: BUPIVACAINE 0.25% 30 ML VIAL ONE (10:54)
[2022-02-01] MEDS ORDERED: VANCOMYCIN HCL 1000MG/20ML VIAL ONE (10:55)
[2022-02-01] MEDS ORDERED: WATER, STERILE FOR INJ 10 ML VIAL ONE (10:55)
[2022-02-01] MEDS ORDERED: LIDOCAINE 1% LOCAL 20 ML VIAL ONE (10:55)
[2022-02-01] MEDS ORDERED: MIDAZOLAM HCL 5 MG/ML 1 ML VIAL ONE (12:07)
[2022-02-01] MEDS ORDERED: fentaNYL citrate 100 MCG/2 ML VIAL ONE (12:07)
[2022-02-01] MEDS ORDERED: ceFAZolin 330 MG/ML 1 GM VIAL ONE (12:07)
--- NOTE | 2022-02-01 12:22 | Pre Anesthesia Assessment ---
Date of Service February 01, 2022 Pre Sedation Assessment Vital Signs Temp Pulse Pulse Resp BP BP BP 02/01/22 11:35 72 20 140/81 02/01/22 08:52 76 02/01/22 08:47 02/01/22 07:14 36.5 C 72 17 158/84 H 02/01/22 03:36 36.4 C L 78 18 152/91 H 01/31/22 23:02 36.5 C 70 18 174/91 H 01/31/22 20:51 36.9 C 70 20 202/76 H 01/31/22 18:11 01/31/22 18:01 64 179/76 H 01/31/22 17:15 82 16 184/81 H 01/31/22 16:52 61 165/76 H 01/31/22 15:29 36.0 C L 52 L 20 205/87 H Pulse Ox O2 Del Method 02/01/22 11:35 96 Room Air 02/01/22 08:52 02/01/22 08:47 Room Air 02/01/22 07:14 94 Room Air 02/01/22 03:36 97 Room Air 01/31/22 23:02 97 Room Air 01/31/22 20:51 98 Room Air 01/31/22 18:11 96 Room Air 01/31/22 18:01 96 Room Air 01/31/22 17:15 97 Room Air 01/31/22 16:52 99 Room Air 01/31/22 15:29 99 Room Air Cardiovascular + regular rate and + regular rhythm Respiratory + respiratory effort normal Pre-Sedation Airway Assessment Smoking Status: Never smoker Hx Sleep Apnea: No Hx Difficult Intubation: No Short, Thick Neck: No Thyromental Distance: > or= 3.5 Finger Breadths Oral Cavity: + WNL Mallampati Class: II ASA: ASA3 NPO Status Date of Last Intake of Fluids: 01/31/22 Time of Last Intake of Fluids: 17:00 Date of Last Intake of Solid Food: 01/31/22 Time of Last Intake of Solid Foods: 17:00 Procedure Planning Contraindications for Sedation: none Current Medications Reviewed: Yes Notes The planned sedation has been discussed with the patient. Informed Consent was obtained. I have identified the patient, determined the appropriateness of sedation and have assessed the patient immediately prior to the procedure. All medicine(s) and interventions are by my order.
--- NOTE | 2022-02-01 14:28 | Electrophysiology Report ---
Date of Service February 01, 2022 Electrophysiology Procedure Electrophysiology Procedure Report Procedure performed: Implantation of dual-chamber permanent pacemaker Staff product development consultant: Alex Barlow MD Indication: the patient is a 81-year-old gentleman with a history of syncope. Outpatient monitoring demonstrated no episode of ventricular asystole and he is known to have significant baseline conduction disease. As such she was felt to be a good candidate for permanent pacemaker due to symptomatic nonreversible AV node dysfunction. Dual-chamber device was selected is currently in sinus rhythm and we wish to maintain AV synchrony. Procedure in detail: The patient was informed of the risks benefits and alternatives to the intended procedure and he wished to proceed. She was taken to the electrophysiology suite in a fasting state. A preoperative antibiotic had been administered. The patient was monitored electrocardiographically throughout today's procedure and conscious sedation was administered per protocol. The left upper pectoral area is prepped and draped in usual sterile fashion. This area was anesthetized using subcutaneous administration of a xylocaine solution. An incision was made at this site and carried down to the prepectoralis fascia using sharp dissection. Electrocautery was also employed for dissection as well as for hemostasis. A device pocket was fashioned tissues above the pectoralis muscle. Subsequent to this maneuver the left axillary vein was accessed using modified Seldinger technique. A sheath was placed over a guidewire and used facilitate passage of the guiding catheter for mapping of the interventricular septum. Several appropriate areas were identified but there was some difficulty advancing the lead at the sites. Eventually suitable site was located and the lead advanced into the interventricular septum. Adequate sensing threshold parameters were obtained prior to removal of the guiding catheter. Proximal portion of lead was then sutured to prepectoralis fascia using nonabsorbable suture. Sheath was placed over the remaining guidewire and used facilitate passage an atrial pacing lead to the right atrium. This was performed under fluoroscopic guidance. Adequate sensing threshold parameters were obtained prior to active fixation of this lead to the endocardial surface. The proximal portion lead was then sutured to prepectoralis fascia using nonabsorbable suture. The device pocket was irrigated with antibiotic solution. The leads were then attached to the device. The device and leads were then placed in the pocket and pocket was closed in 3 layers of absorbable suture. Steri-Strips and sterile dressing were applied. The device was tested noninvasively prior to conclusion the procedure. The patient tolerated procedure well there no immediate complications. Equipment used: New pulse generator: Personal Property Assessor [employer]. Model number: [id number] Serial number [id number] Right atrial lead: Personal Property Assessor [employer]. Model number: 5076 serial number [id number] Right ventricular lead: Personal Property Assessor [employer]. Model number: 3830 serial number [id number] Measured data: Right atrial lead: P-waves measured 4.9 millivolts. Pacing threshold 1.1 volts at 0.5 millisecond with a pacing impedance of 577 Ohms Right ventricular lead: R-waves measured 17.1 millivolts. Pacing threshold 0.7 volts at 0.5 milliseconds with a pacing impedance of 741 Ohms Impression: Successful implantation of dual-chamber permanent pacemaker with septal ventricular pacing lead [facility] Electrophysiology codes Pacing Procedure 1: Pacin Insert/Replace Pacer A & V PG Moderate Sedation Codes Moderate Sedation Codes Procedure 1: Sedation/Anesthesia: 47949 Mod Sedation by the same physician;Init15 Min Child Age 5 & Up Procedure 2: Sedation/Anesthesia: 65723 Mod Sedation by the same physician; Ea [id number] Minutes
--- NOTE | 2022-02-01 14:28 | Post Anesthesia Assessment ---
Date of Service February 01, 2022 Post Sedation Assessment Vital Signs Temp Pulse Pulse Resp BP BP BP 02/01/22 11:35 72 20 140/81 02/01/22 08:52 76 02/01/22 08:47 02/01/22 07:14 36.5 C 72 17 158/84 H 02/01/22 03:36 36.4 C L 78 18 152/91 H 01/31/22 23:02 36.5 C 70 18 174/91 H 01/31/22 20:51 36.9 C 70 20 202/76 H 01/31/22 18:11 01/31/22 18:01 64 179/76 H 01/31/22 17:15 82 16 184/81 H 01/31/22 16:52 61 165/76 H 01/31/22 15:29 36.0 C L 52 L 20 205/87 H Pulse Ox O2 Del Method 02/01/22 11:35 96 Room Air 02/01/22 08:52 02/01/22 08:47 Room Air 02/01/22 07:14 94 Room Air 02/01/22 03:36 97 Room Air 01/31/22 23:02 97 Room Air 01/31/22 20:51 98 Room Air 01/31/22 18:11 96 Room Air 01/31/22 18:01 96 Room Air 01/31/22 17:15 97 Room Air 01/31/22 16:52 99 Room Air 01/31/22 15:29 99 Room Air Recovery Score Activity: Moves 4 extremities Respiration: Deep Breath/Cough Circulation: +/-20% PreAnes Value Consciousness: Fully Awake Oxygen Saturation: > 92% On Room Air Discharge Sedation Level of Care: Fast Track Phase II Post Sedation Plan On clinical assessment, the patient appears to have tolerated the sedation without complications. Patient is recovering as anticipated. Patient will continue to be monitored by nursing and may be discharged when sedation discharge criteria are met per below protocol. Upon Completions of procedure up to 15 minutes continue every 5 minute vital signs and the P.A.R. score; then discharge to a Phase I or Fast Track to Phase II per the following guidelines: * Discharge Patient to appropriate Phase II area if PAR is 8 or greater or return to pre- procedure baseline. The post - procedure orders will be as directed. * If PAR score is less than 8 or not return to pre-procedure baseline then patient will follow Phase I monitoring till PAR is reached for Phase II. The Phase I may be done in procedure room or may call to secure a Phase I area. * If naloxone or flumazenil are used for reversal, hold in Phase I for continued monitoring from when last reversal dose was given for a minimum of 60 minutes or longer pending the nurse and/or physician discretion of patient condition before discharge to Phase II. Please call the Sedation Physician to re-evaluate and complete post-note for discharge to Phase II area. Do NOT discharge from procedure sedation or Phase 1 until post- sedation evaluation note is complete by procedure /sedation MD Sedation Discharge Instructions to be given to the patient at discharge to home.
[2022-02-01] MEDS: ceFAZolin 2000MG 2,000 MG/15 ML SYR IV SCH (14:39)
--- NOTE | 2022-02-01 17:14 | XRay Report ---
XR chest 2V PA/lateral CLINICAL HISTORY: EXACT TIME ORDERED Evaluate for pneumothorax and l TECHNIQUE: 2 views of the chest were obtained. Comparison: Comparison is made to chest radiograph 01/31/2022 FINDINGS: Interval placement of dual-lead pacemaker. The cardiomediastinal silhouette is normal. The lungs are clear. No evidence of pleural effusion or pneumothorax. IMPRESSION: Interval placement of a dual-lead pacemaker without evidence of pneumothorax or other acute abnormali ty. ACT 112: Negative or not required by law. Electronically signed by: Noe Benjamin M.D. 02/01/2022 5:12 PM
--- NOTE | 2022-02-01 17:37 | Cardiology Consultation ---
Date of Consultation February 01, 2022 Assessment & Plan (1) Syncope and collapse: (2) Aortic stenosis: Plan 1. Syncope: This is due to symptomatic bradycardia. 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 In the setting of syncope this represents an indication for permanent pacing. Additionally, he has had documentation of more significant AV he conduction disease and associated ventricular asystole. He appears to have preserved LV systolic function. This is not appear to be reversible. He has had longstanding conduction disease based on review of his records and prior EKGs. As such, I described the benefits of a permanent pacemaker. We discussed the risks and alternatives and will proceed today. 2. Aortic stenosis: Longstanding history of a murmur. MIld stenosis. No symptoms. Will follow over time. History of Present Illness Reason for Consultation: syncope, heart block Requesting Physician: Josiah Attending Physician: Angel Christian MD History of Present Illness patient is a 81-year-old gentleman without a known history of cardiac disease other than a previously documented heart murmur. Over the past several days he has experienced 3 episodes of acute syncope. These episodes were witnessed and did not involve any prodrome. Patient states that he had no warning prior to losing consciousness. On all occasions he lost postural tone but was on injury. There were no sense of palpitations. He denies dizziness or lightheadedness. No symptoms of nausea or fatigue. He has had some symptoms of lightheadedness recently. Again, no chest pain. No exercise intolerance. No worsening dyspnea. He denies any recent illness such as fevers or chills or other constitutional symptoms. He described the symptoms to his primary care physician. He was prescribed an outpatient monitor and shortly after application was no did have episodes ventricular asystole. As such she was referred to the emergency room for evaluation. Currently feeling well. No notable arrhythmias overnight. No additional episodes of syncope since admission. Allergies Allergy/AdvReac Type Severity Reaction Status Date / Time No Known Drug Allergies Allergy Unknown Verified 01/31/22 17:10 Home Medications Medication Instructions Recorded Confirmed Type aspirin 81 mg tablet,delayed 81 mg PO QAM 04/02/18 01/31/22 History release (Josey Low Dose Aspirin) cholecalciferol (vitamin D3) 50 2,000 unit PO QAM 04/02/18 01/31/22 History mcg (2,000 unit) capsule (Vitamin D3) cyanocobalamin (vitamin B-12) 1,000 mcg PO QAM 04/02/18 01/31/22 History 1,000 mcg tablet (Vitamin B-12) clotrimazole-betamethasone 1 1 appln topical BID PRN 04/01/19 01/31/22 History %-0.05 % topical cream rash/itching multivit with minerals-folic 1 tab PO QAM 04/01/19 01/31/22 History acid-lycopene 0.4 mg-600 mcg tablet (One Daily For Men) ibuprofen 200 mg capsule 200 - 600 mg PO UD PRN Pain 04/29/19 01/31/22 History CPAP Machine #1 ea 04/12/21 01/31/22 Rx amlodipine 5 mg tablet 5 mg PO DAILY #30 tabs 04/12/21 01/31/22 Rx losartan 100 mg tablet 100 mg PO DAILY #90 tabs 07/03/21 01/31/22 Rx gabapentin 300 mg capsule 300 mg PO BID 90 days #180 caps 08/15/21 01/31/22 Rx mirabegron 50 mg tablet,extended 50 mg PO HS #90 tabs 12/14/21 01/31/22 Rx release 24 hr (Myrbetriq) oxybutynin chloride 5 mg 5 mg PO QAM #90 tabs 12/14/21 01/31/22 Rx tablet,extended release 24 hr (Ditropan XL) Patient History Medical History Abnormal EKG HX OF 1 YR AGO, CARDIO EVAL - NO FINDINGS...FOLLOWS KIP HARINI Cardiac murmur Dyslipidemia GERD (gastroesophageal reflux disease) Controlled and stable Hearing deficit Kidney stones No current issues Memory loss SHORT TERM MEMORY ISSUES, EVAL DONE 5 YR AGO - NO FINDINGS, NO WORSENING Of PROBLEM OVER LAST 5 YR Neoplasm of prostate, malignant HX OF 2003 CESAR (obstructive sleep apnea) Wears CPAP Osteoarthritis, shoulder SNHL (sensorineural hearing loss) Urinary incontinence Artificial urethral sphincter implanted recently - follows with urology with [facility] Surgical History History of bilateral cataract extraction History of bladder surgery bladder sling placed in 2005 History of carpal tunnel surgery of right wrist History of colonoscopy (~2007) History of lithotripsy History of lymph node biopsy History of prostatectomy 12/28/2003 History of reverse total replacement of left shoulder joint (~08/2019) History of surgery URETHRAL CUFF 07/08/2019 [facility] History of tonsillectomy and adenoidectomy History of wisdom tooth extraction Hx of vasectomy Status post bilateral foot surgery FOR INGROWN TOENAILS Family History Mother , 83yo Diabetes H/O angioplasty Stroke Father , 79yo Cirrhosis of liver Lung cancer Alcoholic Sister Stroke Son Schizophrenia Bipolar disorder PTSD (post-traumatic stress disorder) Daughter Not currently working due to disabled status As a result of an MVA Other No family history of adverse response to anesthesia Denies family history of Clotting disorder Social History Smoking Status: Never smoker Second Hand Exposure: Yes (father smoked); Hx Alcohol Use: Yes Alcohol type: beer and hard liquor Hx Substance Use: No Preferred Language: Croatian Communication Ability: Effective Visual Impairment: No Limitations Hearing Ability: Hard of Hearing Film Examiner Required: No Beliefs That Will Affect Care: None marital status: Current Living Situation: Spouse and Family Current Living Situation Comment: Spouse and daughter 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 Other Information That Helps Us Care for You: No Feels Safe at Home: Yes Safety Concerns: Feels Safe At This Time caffeine: Yes (Irregular use;) during the past year weight has: decreased > 10 lbs Assistive Devices: None Assistive Devices Comment: hearing aids at home, glasses at bedside Review of Systems Review of Systems: Per HPI Physical Exam Physical Exam: The patient is alert and oriented. Mood and affect appeared normal. He answered all questions appropriately. HEENT: Pupils are equal and reactive to light and accommodation. Extraocular movements are intact. The sclerae are anicteric. Neuro: Cranial nerves intact chest: Scar in the left deltopectoral groove Lungs: Clear to auscultation bilaterally. He has good air movement without use of accessory muscles. No rales wheezes or rhonchi. Cardiac: Heart demonstrates a regular rate and rhythm. Normal S1 and S2. No murmurs on examination. Pulses: The patient has palpable radial pulses bilaterally that are equal in intensity Extremities: There was no evidence of hypoperfusion. There is no cyanosis or clubbing. There is no edema. Skin: I did not appreciate any rashes on examination today. Results & Data ([facility]) Vital Signs (Past 12 Hours) Vital Signs Temp Pulse Pulse Resp BP BP Pulse Ox 02/01/22 16:15 71 02/01/22 16:31 78 18 148/78 H 92 02/01/22 15:55 67 16 158/93 H 92 02/01/22 15:41 71 16 176/99 H 94 02/01/22 15:27 69 16 156/90 H 92 02/01/22 15:06 36.2 C L 70 18 134/78 97 02/01/22 14:45 72 20 166/100 H 98 02/01/22 14:30 54 L 20 169/87 H 97 02/01/22 11:35 72 20 140/81 96 02/01/22 08:52 76 02/01/22 08:47 02/01/22 07:14 36.5 C 72 17 158/84 H 94 O2 Del Method 02/01/22 16:15 02/01/22 16:31 Room Air 02/01/22 15:55 Room Air 02/01/22 15:41 Room Air 02/01/22 15:27 Room Air 02/01/22 15:06 Room Air 02/01/22 14:45 Room Air 02/01/22 14:30 Room Air 02/01/22 11:35 Room Air 02/01/22 08:52 02/01/22 08:47 Room Air 02/01/22 07:14 Room Air Laboratory Results Abnormal Lab Results 01/31/22 02/01/22 02/01/22 15:45 08:26 08:26 WBC 6.41 RBC 5.45 Hgb 16.9 Hct 47.7 MCV 87.5 MCH 31.0 MCHC 35.4 RDW Std Deviation 39.3 RDW Coeff of Jennifer 12.3 Plt Count 177 MPV 10.0 Sodium 137 Potassium 3.9 Chloride 106 Carbon Dioxide 26 Anion Gap 5 BUN 18 Creatinine 1.16 Est Cr Clr Drug Dosing 65.5 Est GFR ( Amer) 69.0 Est GFR (Non-Af Amer) 59.6 BUN/Creatinine Ratio 15.5 Glucose 104 H Calcium 8.8 Magnesium 1.9 Lyme Disease IgG Ab Negative Lyme Disease IgM Ab Equivocal A Diagnostic Findings Echocardiogram performed today revealed normal LV systolic function and mild aortic stenosis PG Care Time/CCT Total # of Minutes Spent Total Time Spent with Patient: Total time spent is greater than 50% in coordination of care (as documented) at patient's floor/unit and/or counseling patient: Coding Level of Care Code 70751 Initial Inpt Care Lvl 3 Diagnoses Syncope and collapse R55 Aortic stenosis I35.0
--- NOTE | 2022-02-01 18:19 | XCELERA ---
[id number] \\[id number]
--- NOTE | 2022-02-01 18:50 | Hospitalist Progress Note ---
Date of Service February 01, 2022 Assessment & Plan (1) Sinus pause: Plan: Sinus pause of up to 15s noted on MCOT correlating with symptoms of syncope over the last few days. On monitor, he is having frequent pauses of up to 3-4 seconds while in the room. - Cardiology EP consulted -> Dr. Barlow did repeat studies today, patient is a candidate for pacemaker - Monitor on telemetry, (2) Syncope and collapse: Plan: Presumed due to above. - Telemetry (3) Urinary incontinence: Plan: Due to hx of prostate cancer in 2003. Has artificial urethral sphincter. MUST OPEN ARTIFICIAL SPHINCTER PRIOR TO INSERTING VOSS IF HE NEEDS ONE. - Continue home mirabegron & oxybutynin (4) Hypertension: Plan: BP as high as 180/75 in the ER. - Continue home amlodipine & losartan (5) Obstructive sleep apnea: Plan: Uses auto-CPAP at home. - CPAP 5 mcH20 (6) Neuropathy: Plan: - Continue home gabapentin (7) DVT prophylaxis: Plan: SCDs - Hold heparin for procedure tomorrow hopefully. FULL CODE - Per patient with in room and in agreement. Admission and Anticipated Discharge Date Admission Date: January 31, 2022 Subjective The patient went for EP studies today, patient is a pacemaker candidate Results & Data Results & Data ([facility]) Vital Signs (Past 12 Hours) Vital Signs Temp Pulse Pulse Resp BP BP Pulse Ox 02/01/22 16:15 71 02/01/22 16:31 78 18 148/78 H 92 02/01/22 15:55 67 16 158/93 H 92 02/01/22 15:41 71 16 176/99 H 94 02/01/22 15:27 69 16 156/90 H 92 02/01/22 15:06 36.2 C L 70 18 134/78 97 02/01/22 14:45 72 20 166/100 H 98 02/01/22 14:30 54 L 20 169/87 H 97 02/01/22 11:35 72 20 140/81 96 02/01/22 08:52 76 02/01/22 08:47 02/01/22 07:14 36.5 C 72 17 158/84 H 94 O2 Del Method 02/01/22 16:15 02/01/22 16:31 Room Air 02/01/22 15:55 Room Air 02/01/22 15:41 Room Air 02/01/22 15:27 Room Air 02/01/22 15:06 Room Air 02/01/22 14:45 Room Air 02/01/22 14:30 Room Air 02/01/22 11:35 Room Air 02/01/22 08:52 02/01/22 08:47 Room Air 02/01/22 07:14 Room Air PG Care Time/CCT Total # of Minutes Spent Total Time Spent with Patient: Total time spent is greater than 50% in coordination of care (as documented) at patient's floor/unit and/or counseling patient: Coding Level of Care Code 22537 Subseq Hosp Care Lvl 2 Diagnoses Sinus pause I45.5 Syncope and collapse R55 Urinary incontinence R32 Hypertension I10 Obstructive sleep apnea G47.33 Neuropathy G62.9 DVT prophylaxis Z29.9
[2022-02-01] MEDS: MIRABEGRON ER 25 MG TAB PO SCH (20:32)
[2022-02-01] MEDS: oxyCODONE HCL IR 5 MG TAB (IMMEDIATE RELEASE) PO PRN (20:33)
[2022-02-02] MEDS: ceFAZolin 2000MG 2,000 MG/15 ML SYR IV SCH (03:43)
[2022-02-02] MEDS: oxyCODONE HCL IR 5 MG TAB (IMMEDIATE RELEASE) PO PRN (03:50)
[2022-02-02] MEDS: amLODIPine BESYLATE 5 MG TAB PO SCH (09:13)
[2022-02-02] MEDS: GABAPENTIN 300 MG CAP PO SCH (09:14)
[2022-02-02] MEDS: LOSARTAN POTASSIUM 50 MG TAB PO SCH (09:14)
[2022-02-02] MEDS: OXYBUTYNIN CHLORIDE XL 5 MG TABCR PO SCH (09:14)
--- NOTE | 2022-02-02 15:56 | Electrocardiogram Report ---
Test Reason : Blood Pressure : / mmHG Vent. Rate : 059 BPM Atrial Rate : 059 BPM P-R Int : 340 ms QRS Dur : 146 ms QT Int : 466 ms P-R-T Axes : 025 -37 050 degrees QTc Int : 461 ms Sinus bradycardia with 1st degree A-V block Left axis deviation Non-specific intra-ventricular conduction block Abnormal ECG When compared with ECG of 01-APR-2019 16:14, No significant change was found Confirmed by Marvel Britt ([id number]) on 02/02/2022 3:56:00 PM Referred By: Confirmed By:Marvel Britt
--- NOTE | 2022-02-03 08:51 | Discharge Summary ---
Date of Service February 03, 2022 Admission HPI Per Admitting Provider 81-year-old male with a history of hypertension and bladder dysfunction who presents with syncope and sinus pauses. The patient reports that he was in his normal state of health up until about 2 days ago, when he had 3 separate syncopal events. The first episode when he was walking uphill. He reports he was "really hustling" and does not remember falling at all. He got up from the ground, and continued walking towards his house, and passed out a second time. He did not have another episode for several days, but then again passed out while walking with his neighbor. He does not have any prodrome of symptoms that he can recall to me this evening. He does not have any chest pain, lightheadedness, dizziness, shortness of breath, or other symptoms. Two days ago, the patient saw his PCP for these episodes. His atenolol was stopped at that time, and he was started on an MCOT. Today, he was called by the monitoring company and told to present to the hospital for a sinus pause of upwards of 15 seconds. At times he reports a "tingling sensation" at the back of his head, but otherwise denies presyncopal symptoms. Principal Diagnosis Sinus pause/sick sinus syndrome status post pacemaker Discharge Exam Constitutional WD/WN, vitals as above Eyes EOM intact bilaterally; no conjunctival abnormality ENMT external ear and nose normal, oropharynx normal Neck trachea midline, no thyromegaly normal visual inspection Respiratory normal respiratory effort, lungs clear to auscultation no respiratory distress Cardiovascular Rate/Rhythm: + bradycardic and + irregularly irregular Gastrointestinal (Abdomen) Inspection/Auscultation: abdomen normal to inspection; abdomen not distended Musculoskeletal no cyanosis or clubbing, extremities motor strength 5/5 Skin no rashes, warm and dry Neurologic moves all extremities and awake Psychiatric Orientation: alert, oriented to person and cooperative Discharge Data Allergies Allergy/AdvReac Type Severity Reaction Status Date / Time No Known Drug Allergies Allergy Unknown Verified 01/31/22 17:10 Consultations 01/31/22 17:01 ED Decision to Admit Stat 01/31/22 21:14 Consult Cardiology Routine Procedures Performed Operation Date: 02/01/22 12:00 Actual Procedures p Pacer with A/V Leads (Dual) - Alex Barlow MD Ordered Studies 02/01/22 11:30 EP Lab Images for PACS ONCE Hospital Course (1) Sinus pause: Sinus pause of up to 15s noted on MCOT correlating with symptoms of syncope over the last few days. On monitor, he is having frequent pauses of up to 3-4 seconds while in the room. - Cardiology EP consulted -> status post pacemaker placement on 02/01 (2) Syncope and collapse: Presumed due to above. - Telemetry (3) Urinary incontinence: Due to hx of prostate cancer in 2003. Has artificial urethral sphincter. MUST OPEN ARTIFICIAL SPHINCTER PRIOR TO INSERTING VOSS IF HE NEEDS ONE. - Continue home mirabegron & oxybutynin (4) Hypertension: BP as high as 180/75 in the ER. - Continue home amlodipine & losartan (5) Obstructive sleep apnea: Uses auto-CPAP at home. - CPAP 5 mcH20 (6) Neuropathy: - Continue home gabapentin Total Time Total Time Spent Total Time Spent (In Minutes): 30 Discharge Plan Discharge Items Patient Disposition: Home - Self-Care Reason For Visit: syncope, sinus pauses Discharge Diagnosis: Sick sinus syndrome Activity: Per Instructions section Activity Comment: no lifting left arm above shoulder behind neck for 6 weeks Lifting: No more than 10 pounds Bathing: Keep incision dry Bathing Comment: keep wound dry and Steri-Strips intact until follow-up next we ek Weightbearing: Full weightbearing Non-emergency contact: Primary Care Provider and Carpentry Specialist Call non-emergency contact if: you have any medication questions and your symptoms worsen Follow-up/Referrals: Elmer Leal MD [Primary Care Provider] - 02/08/22 9:30 am Diet: Heart Healthy Addtl Attending Provider Instructions: may remove outer bulky dressing in the morning Addtl [place] Department Supervisor Provider Instructions: Please follow-up with your data recovery planner as instructed Pending Studies at Discharge: No Stand-Alone Forms: My [employer], Smoking Cessation Medications and DC Order Prescriptions: Continued losartan 100 mg tablet 100 mg PO DAILY Qty: 90 3RF amlodipine 5 mg tablet 5 mg PO DAILY Qty: 30 11RF (DME) CPAP Machine Misc See Rx Instructions .MEDSUPPLY Qty: 1 0RF Rx Instructions: Auto CPAP 5-20 cm water pressure with heated humidification, tubing, and supplies. SHANELLE: 99+ years. Myrbetriq 50 mg tablet extended release 24 hr 50 mg PO HS Qty: 90 3RF oxybutynin chloride [Ditropan XL] 5 mg tablet extended release 24hr 5 mg PO QAM Qty: 90 3RF gabapentin 300 mg capsule 300 mg PO BID 90 Days Qty: 180 3RF cyanocobalamin (vitamin B-12) [Vitamin B-12] 1,000 mcg Tablet 1,000 mcg PO QAM aspirin [Josey Low Dose Aspirin] 81 mg Tablet,Delayed Release (Dr/Ec) 81 mg PO QAM cholecalciferol (vitamin D3) [Vitamin D3] 2,000 unit Capsule 2,000 unit PO QAM One Daily For Men 0.4-600 mg-mcg Tablet 1 tab PO QAM clotrimazole-betamethasone 1-0.05 % cream 1 appln topical BID PRN (Reason: rash/itching) ibuprofen 200 mg Capsule 200 - 600 mg PO UD PRN (Reason: Pain) Discharge Orders: Discharge Order (Routine); Ordered 02/02/22 Ordered By: Angel Christian Admission Data Admit Date/Time: 01/31/22 17:56 Attending Provider: Angel Christian Admit Provider: Dayday Rahman Primary Care Provider: Elmer Leal Other Providers: Dayday Rahman ; Alex Barlow Other Interventions: Discharge Summary Assessment (RN) Last Done: 02/02/22 09:20 Coding Level of Care Code D/C DAY MANAGEMENT <30 MINS Diagnoses Sinus pause I45.5 Syncope and collapse R55 Urinary incontinence R32 Hypertension I10 Obstructive sleep apnea G47.33 Neuropathy G62.9
[2022-02-07 12:17] LABS: 18KDIGG Band NON-REACTIVE; 23KDIGG Band NON-REACTIVE; 23KDIGM Band NON-REACTIVE; 28KDIGG Band NON-REACTIVE; 30KDIGG Band NON-REACTIVE; 39KDIGG Band NON-REACTIVE; 39KDIGM Band NON-REACTIVE; 41KDIGG Band REACTIVE; 41KDIGM Band NON-REACTIVE; 45KDIGG Band NON-REACTIVE; 58KDIGG Band REACTIVE; 66KDIGG Band NON-REACTIVE; 93KDIGG Band NON-REACTIVE; Lyme Antibodies, WB IgG NEGATIVE (NEGATIVE); Lyme Antibodies, WB IgM NEGATIVE (NEGATIVE)
== END 2022-02-02 09:35 | disposition home or self-care (01) | DRG 244 ==
LOC: ED 15:24 → 2S 17:56 → SUATTDRO 17:56 → 2S 19:46

== ENCOUNTER 2022-05-17 07:56 | Inpatient (IN) ==
[2022-05-17] MEDS ORDERED: OPTIRAY 320 500ml IV ONE (08:18)
--- NOTE | 2022-05-17 08:18 | Emergency Department Note ---
Impression & Plan Acute CVA (cerebrovascular accident), Aphasia ED Provider Note Provider: Ketan Baker MD DATE OF SERVICE: 05/17/2022 CHIEF COMPLAINT: Unable to talk HISTORY OF PRESENT ILLNESS: Patient is a 81-year-old gentleman history of heart block with AICD, GERD, hypertension, sleep apnea presenting here today with . Evidently awoke this morning got dressed and then awoke as he was not speaking well. states he has not really spoken any words and seems frustrated with this. Seems to be getting around and got dressed okay although maybe not walking quite his normal amount. Did go to bed okay last night around 1 to 1:30 AM. Patient himself limited his ability provide history. Does not seem to indicate any pain but is unable to verbalize words other than saying no once. Made a stroke alert from triage. PAST MEDICAL HISTORY: As noted above MEDICATIONS: Reviewed home medications includes aspirin SOCIAL HISTORY: and lives at home PHYSICAL EXAM: GENERAL: alert in no distress on CT scan upon initial evaluation but not really forming words Head: normocephalic and atraumatic EYES: No injection, discharge or icterus. PERRL, EOMI. NECK: Trachea midline. Supple. ENT: Mucous membranes pink and moist. Pharynx without erythema or exudate. LUNGS: Airway patent. No retractions. Breath sounds clear with good air entry bilaterally. HEART: Regular rate and rhythm. No chest wall tenderness ABDOMEN: Soft and non-tender, without guarding or rebound. SKIN: Acyanotic, warm, dry, without rashes EXTREMITIES: Without swelling, tenderness or deformity NEUROLOGICAL: Moving all extremities. No facial droop. Tongue midline normal strength and tone in the extremities. Sensation to gross touch normal. Ambulatory. Able to write his name fairly clearly in cursive on paper. Not following commands enough to do [id number] for testing. Severe aphasia noted really not able to form words. EK bpm atrially sensed ventricular paced rhythm without PVC. QTc 478. Interventricular conduction delay consistent with pacing and compared to previous from January 31 of this year , Now paced with some T wave inversions present in V2 as well as aVL and lead I more predominant. There is some slight likely repolarization changes due to his bundle branch block in the inferior leads without reciprocal depression noted. CONTINUOUS CARDIAC MONITORING: was ordered and showed a heart rate of 70s-90s bpm in atrially sensed ventricular paced rhythm Patient's laboratory studies and imaging reviewed. Differential includes Infection, dehydration, metabolic abnormality, hypo/hyperglycemia, electrolyte disturbance, anemia, hypoxia, cardiac sources, intracerebral event/neurologic, as well as other pathologies. IMPRESSION/MEDICAL DECISION MAKIN-year-old gentleman last known well 1 to 1:30 AM. Evidently awoke and got dressed and then woke the and was unable to communicate. Unclear exactly when symptoms started overnight. reports that around 615 he seemed to be struggling to get his CPAP off which is atypical for him but then later found he r just after 7am. CTs completed and made a stroke alert from triage. Initially seen in CT scanner. Discussed with [facility] telestroke. CT imaging with changes of a left MCA stroke already noted. Imaging also appears to show a very distal sylvian MCA branch possible occlusion. Given how distal this is and with already changes in discussion with [place] does not seem to be a thrombectomy candidate. Outside the time window for thrombolysis. Discussed with patient as well as at bedside. Basic labs were sent as well as EKG. no significant abnormalities here and blood work is reassuring without evidence of hypoglycemia or significant renal dysfunction. Given magnesium and Plavix by direction of the telestroke doctor. Will bring in for stroke work-up and an MRI if possible with his pacemaker for further neurological evaluation what appears to be a left MCA stroke. Patient and agreeable. Does not appear to be an arrhythmia or in A-fib at this point. Denies other pain complaints. Will allow permissive hypertension. Discussed with hospitalist for further inpatient care. DIAGNOSIS: Left MCA stroke, hypertension, aphasia DISPOSITION: Hospitalist will evaluate Patient was agreeable with this plan. Past Med/Surg History Medical History Cardiac murmur Dyslipidemia GERD (gastroesophageal reflux disease) Hearing deficit Kidney stones Memory loss Neoplasm of prostate, malignant CESAR (obstructive sleep apnea) Osteoarthritis, shoulder Sinus pause SNHL (sensorineural hearing loss) Syncope and collapse Urinary incontinence Surgical History History of bilateral cataract extraction History of bladder surgery History of carpal tunnel surgery of right wrist History of colonoscopy (~2007) History of lithotripsy History of lymph node biopsy History of prostatectomy History of reverse total replacement of left shoulder joint (~08/2019) History of surgery History of tonsillectomy and adenoidectomy History of wisdom tooth extraction Hx of vasectomy Status post bilateral foot surgery Family History Mother , 83yo Diabetes H/O angioplasty Stroke Father , 79yo Cirrhosis of liver Lung cancer Alcoholic Sister Stroke Son Schizophrenia Bipolar disorder PTSD (post-traumatic stress disorder) Daughter Not currently working due to disabled status As a result of an MVA Other No family history of adverse response to anesthesia Denies family history of Clotting disorder Social History Smoking Status: Never smoker Second Hand Exposure: Yes (father smoked); Hx Alcohol Use: Yes Alcohol type: beer and hard liquor Hx Substance Use: No Preferred Language: Mongolian Communication Ability: Effective Communication Ability Comment: PT VERBAL PERMISSION FOR TO HELP WITH INTERVIEW, PT [place] Visual Impairment: No Limitations Hearing Ability: Hard of Hearing Principal Librarian Required: No Beliefs That Will Affect Care: None marital status: Current Living Situation: Spouse and Family Current Living Situation Comment: Spouse and daughter 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 [employer] Feels Safe at Home: Yes caffeine: Yes (Irregular use;) during the past year weight has: decreased > 10 lbs Assistive Devices: None Allergies Allergies Allergy/AdvReac Type Severity Reaction Status Date / Time No Known Drug Allergies Allergy Unknown Verified 05/17/22 09:14 Home Meds Home Medications Medication Instructions Recorded Confirmed aspirin 81 mg tablet,delayed 81 mg PO QAM 04/02/18 05/17/22 release (Josey Low Dose Aspirin) cholecalciferol (vitamin D3) 50 2,000 unit PO QAM 04/02/18 05/17/22 mcg (2,000 unit) capsule (Vitamin D3) cyanocobalamin (vitamin B-12) 1,000 mcg PO QAM 04/02/18 05/17/22 1,000 mcg tablet (Vitamin B-12) clotrimazole-betamethasone 1 1 appln topical BID PRN 04/01/19 05/17/22 %-0.05 % topical cream rash/itching multivit with minerals-folic 1 tab PO QAM 04/01/19 05/17/22 acid-lycopene 0.4 mg-600 mcg tablet (One Daily For Men) ibuprofen 200 mg capsule 200 - 600 mg PO UD PRN Pain 04/29/19 05/17/22 amoxicillin 500 mg tablet 2,000 mg PO DIRECTED PRN Dental 05/17/22 05/17/22 procedures mometasone 50 mcg/actuation nasal 2 spray intranasal HS PRN Allergy 05/17/22 05/17/22 spray Symptoms Previous Rx's Medication Instructions Recorded CPAP Machine #1 ea 04/12/21 losartan 100 mg tablet 100 mg PO DAILY #90 tabs 07/03/21 gabapentin 300 mg capsule 300 mg PO BID 90 days #180 caps 08/15/21 mirabegron 50 mg tablet,extended 50 mg PO HS #90 tabs 12/14/21 release 24 hr (Myrbetriq) oxybutynin chloride 5 mg 5 mg PO QAM #90 tabs 12/14/21 tablet,extended release 24 hr (Ditropan XL) indapamide 1.25 mg tablet 1.25 mg PO QAM #90 tabs 02/08/22 amlodipine 5 mg tablet 5 mg PO DAILY #90 tabs 04/04/22 Results & Data (ED) Vital Signs Vital Signs - 24 hr 05/17/22 08:00 05/17/22 08:22 05/17/22 08:31 Temperature 36.8 C Temperature Source Temporal Artery Scan Pulse Rate 71 74 76 Pulse Rate from SpO2 Sensor Respiratory Rate 18 19 Respiratory Effort / Characteristics Non-Labored Spontaneous Respiratory Depth Normal Blood Pressure 161/84 H 156/87 H Blood Pressure Mean 109 110 Blood Pressure Position Sitting Pulse Oximetry 97 95 Oxygen Delivery Method Room Air Room Air Sepsis Recent Fever Within 48 Hours No Sepsis New/Unexplained Change in Mental Status No Sepsis Action Taken by Nursing No Action Required 05/17/22 08:46 05/17/22 09:01 05/17/22 09:15 Temperature Temperature Source Pulse Rate 78 77 81 Pulse Rate from SpO2 Sensor 78 Respiratory Rate 16 20 21 Respiratory Effort / Characteristics Respiratory Depth Blood Pressure 153/88 H 184/78 H Blood Pressure Mean 109 113 Blood Pressure Position Pulse Oximetry 96 95 94 Oxygen Delivery Method Room Air Room Air Room Air Sepsis Recent Fever Within 48 Hours Sepsis New/Unexplained Change in Mental Status Sepsis Action Taken by Nursing 05/17/22 09:15 05/17/22 09:30 05/17/22 09:38 Temperature Temperature Source Pulse Rate 73 73 Pulse Rate from SpO2 Sensor Respiratory Rate 16 24 Respiratory Effort / Characteristics Respiratory Depth Blood Pressure 182/97 H Blood Pressure Mean 125 Blood Pressure Position Pulse Oximetry 97 Oxygen Delivery Method Room Air Sepsis Recent Fever Within 48 Hours Sepsis New/Unexplained Change in Mental Status Sepsis Action Taken by Nursing 05/17/22 09:38 05/17/22 10:09 05/17/22 10:09 Temperature Temperature Source Pulse Rate 77 Pulse Rate from SpO2 Sensor 76 Respiratory Rate 16 Respiratory Effort / Characteristics Respiratory Depth Blood Pressure 168/78 H 156/87 H Blood Pressure Mean 108 110 Blood Pressure Position Pulse Oximetry 98 Oxygen Delivery Method Room Air Sepsis Recent Fever Within 48 Hours Sepsis New/Unexplained Change in Mental Status Sepsis Action Taken by Nursing 05/17/22 10:30 05/17/22 10:30 05/17/22 11:00 Temperature Temperature Source Pulse Rate 78 72 Pulse Rate from SpO2 Sensor 73 Respiratory Rate 11 L 19 Respiratory Effort / Characteristics Respiratory Depth Blood Pressure 161/76 H Blood Pressure Mean 104 Blood Pressure Position Pulse Oximetry 94 94 Oxygen Delivery Method Room Air Room Air Sepsis Recent Fever Within 48 Hours Sepsis New/Unexplained Change in Mental Status Sepsis Action Taken by Nursing 05/17/22 11:02 05/17/22 11:02 05/17/22 11:30 Temperature Temperature Source Pulse Rate 80 80 Pulse Rate from SpO2 Sensor 82 Respiratory Rate 19 14 Respiratory Effort / Characteristics Respiratory Depth Blood Pressure 188/104 H Blood Pressure Mean 132 Blood Pressure Position Pulse Oximetry 95 Oxygen Delivery Method Room Air Sepsis Recent Fever Within 48 Hours Sepsis New/Unexplained Change in Mental Status Sepsis Action Taken by Nursing 05/17/22 11:31 05/17/22 11:31 Temperature Temperature Source Pulse Rate 83 Pulse Rate from SpO2 Sensor Respiratory Rate 16 Respiratory Effort / Characteristics Respiratory Depth Blood Pressure 175/62 H Blood Pressure Mean 99 Blood Pressure Position Pulse Oximetry Oxygen Delivery Method Sepsis Recent Fever Within 48 Hours Sepsis New/Unexplained Change in Mental Status Sepsis Action Taken by Nursing Laboratory Data 05/17/22 08:21 05/17/22 08:21 Lab Results 05/17/22 05/17/22 05/17/22 Range/Units 08:21 08:21 08:21 WBC 5.58 (4.8-10.8) K/ul RBC 5.03 (4.70-6.10) M/uL Hgb 15.6 (14.0-18.0) g/dl Hct 44.8 (42.0-52.0) % MCV 89.1 (80.0-100.0) fL MCH 31.0 (25.0-34.0) pg MCHC 34.8 (32.0-36.0) g/dL RDW Std Deviation 41.5 (36.4-46.3) fL RDW Coeff of Jennifer 12.8 (11.5-14.5) % Plt Count 164 (130-400) K/uL MPV 9.7 (9.4-12.4) fL Immature Gran % (Auto) 0.2 % Neut % (Auto) 56.9 % Lymph % (Auto) 29.6 % [place] % (Auto) 9.3 % Eos % (Auto) 3.8 % Baso % (Auto) 0.2 % Neut # (Auto) 3.18 (1.40-6.50) K/uL Lymph # (Auto) 1.65 (1.2-3.4) K/uL [place] # (Auto) 0.52 (0.11-0.59) K/uL Eos # (Auto) 0.21 (0-0.50) K/uL Baso # (Auto) 0.01 (0-0.2) K/uL Immature Gran # (Auto) 0.01 (0.01-0.20) K/uL PT 11.5 (9.0-12.0) Seconds INR 1.1 (0.9-1.1) APTT 30.3 (21.0-31.0) Seconds PTT Ratio 1.1 Sodium (136-145) mmol/L Potassium (3.5-5.1) mmol/L Chloride (98-107) mmol/L Carbon Dioxide (21-32) mmol/L Anion Gap (3-11) BUN (6-23) mg/dl Creatinine (0.6-1.4) mg/dl Est Cr Clr Drug Dosing ml/min Est GFR ( Amer) ml/min Est GFR (Non-Af Amer) ml/min BUN/Creatinine Ratio (10-20) Glucose (70-99(Fasting)) mg/dl POC Glucose (70-99) mg/dl Calcium (8.6-10.3) mg/dl Magnesium (1.7-2.4) mg/dl Total Bilirubin (0.2-1.0) mg/dl AST (13-39) U/L ALT (7-52) U/L Alkaline Phosphatase (34-104) U/L Troponin I High Sens (0-20) pg/ml Total Protein (6.0-8.3) gm/dl Albumin (3.4-5.0) gm/dl Globulin (2.5-4.0) gm/dl Albumin/Globulin Ratio (0.9-2) Urine Color Urine Appearance (Clear) Urine pH (4.5-7.5) Ur Specific [place] (1.000-1.030) Urine Protein (Negative) Urine Glucose (UA) (Negative) Urine Ketones (Negative) Urine Blood (Negative) Urine Nitrite (Negative) Urine Bilirubin (Negative) Urine Urobilinogen (Negative) Ur Leukocyte Esterase (Negative) Urine RBC (0-4) /hpf Urine WBC (0-5) /hpf Ur Epithelial Cells (0-5) /lpf Other Crystals (None Prsent) Urine Bacteria (Negative) SARS-CoV-2, RNA, NAAT (NEGATIVE) Blood Type O Positive Antibody Screen NEGATIVE 05/17/22 05/17/22 05/17/22 Range/Units 08:21 08:21 08:38 WBC (4.8-10.8) K/ul RBC (4.70-6.10) M/uL Hgb (14.0-18.0) g/dl Hct (42.0-52.0) % MCV (80.0-100.0) fL MCH (25.0-34.0) pg MCHC (32.0-36.0) g/dL RDW Std Deviation (36.4-46.3) fL RDW Coeff of Jennifer (11.5-14.5) % Plt Count (130-400) K/uL MPV (9.4-12.4) fL Immature Gran % (Auto) % Neut % (Auto) % Lymph % (Auto) % [place] % (Auto) % Eos % (Auto) % Baso % (Auto) % Neut # (Auto) (1.40-6.50) K/uL Lymph # (Auto) (1.2-3.4) K/uL [place] # (Auto) (0.11-0.59) K/uL Eos # (Auto) (0-0.50) K/uL Baso # (Auto) (0-0.2) K/uL Immature Gran # (Auto) (0.01-0.20) K/uL PT (9.0-12.0) Seconds INR (0.9-1.1) APTT (21.0-31.0) Seconds PTT Ratio Sodium 137 (136-145) mmol/L Potassium 3.8 (3.5-5.1) mmol/L Chloride 105 (98-107) mmol/L Carbon Dioxide 26 (21-32) mmol/L Anion Gap 6 (3-11) BUN 26 H (6-23) mg/dl Creatinine 1.30 (0.6-1.4) mg/dl Est Cr Clr Drug Dosing 58.5 ml/min Est GFR ( Amer) 60.1 ml/min Est GFR (Non-Af Amer) 51.9 ml/min BUN/Creatinine Ratio 20.0 (10-20) Glucose 109 H (70-99(Fasting)) mg/dl POC Glucose 105 H (70-99) mg/dl Calcium 8.8 (8.6-10.3) mg/dl Magnesium 1.7 (1.7-2.4) mg/dl Total Bilirubin 0.6 (0.2-1.0) mg/dl AST 24 (13-39) U/L ALT 20 (7-52) U/L Alkaline Phosphatase 67 (34-104) U/L Troponin I High Sens 18.8 (0-20) pg/ml Total Protein 6.3 (6.0-8.3) gm/dl Albumin 3.7 (3.4-5.0) gm/dl Globulin 2.6 (2.5-4.0) gm/dl Albumin/Globulin Ratio 1.4 (0.9-2) Urine Color Urine Appearance (Clear) Urine pH (4.5-7.5) Ur Specific [place] (1.000-1.030) Urine Protein (Negative) Urine Glucose (UA) (Negative) Urine Ketones (Negative) Urine Blood (Negative) Urine Nitrite (Negative) Urine Bilirubin (Negative) Urine Urobilinogen (Negative) Ur Leukocyte Esterase (Negative) Urine RBC (0-4) /hpf Urine WBC (0-5) /hpf Ur Epithelial Cells (0-5) /lpf Other Crystals (None Prsent) Urine Bacteria (Negative) SARS-CoV-2, RNA, NAAT NEGATIVE (NEGATIVE) Blood Type Antibody Screen 05/17/22 Range/Units 10:07 WBC (4.8-10.8) K/ul RBC (4.70-6.10) M/uL Hgb (14.0-18.0) g/dl Hct (42.0-52.0) % MCV (80.0-100.0) fL MCH (25.0-34.0) pg MCHC (32.0-36.0) g/dL RDW Std Deviation (36.4-46.3) fL RDW Coeff of Jennifer (11.5-14.5) % Plt Count (130-400) K/uL MPV (9.4-12.4) fL Immature Gran % (Auto) % Neut % (Auto) % Lymph % (Auto) % [place] % (Auto) % Eos % (Auto) % Baso % (Auto) % Neut # (Auto) (1.40-6.50) K/uL Lymph # (Auto) (1.2-3.4) K/uL [place] # (Auto) (0.11-0.59) K/uL Eos # (Auto) (0-0.50) K/uL Baso # (Auto) (0-0.2) K/uL Immature Gran # (Auto) (0.01-0.20) K/uL PT (9.0-12.0) Seconds INR (0.9-1.1) APTT (21.0-31.0) Seconds PTT Ratio Sodium (136-145) mmol/L Potassium (3.5-5.1) mmol/L Chloride (98-107) mmol/L Carbon Dioxide (21-32) mmol/L Anion Gap (3-11) BUN (6-23) mg/dl Creatinine (0.6-1.4) mg/dl Est Cr Clr Drug Dosing ml/min Est GFR ( Amer) ml/min Est GFR (Non-Af Amer) ml/min BUN/Creatinine Ratio (10-20) Glucose (70-99(Fasting)) mg/dl POC Glucose (70-99) mg/dl Calcium (8.6-10.3) mg/dl Magnesium (1.7-2.4) mg/dl Total Bilirubin (0.2-1.0) mg/dl AST (13-39) U/L ALT (7-52) U/L Alkaline Phosphatase (34-104) U/L Troponin I High Sens (0-20) pg/ml Total Protein (6.0-8.3) gm/dl Albumin (3.4-5.0) gm/dl Globulin (2.5-4.0) gm/dl Albumin/Globulin Ratio (0.9-2) Urine Color Yellow Urine Appearance Clear (Clear) Urine pH 6.0 (4.5-7.5) Ur Specific [place] 1.020 (1.000-1.030) Urine Protein Trace H (Negative) Urine Glucose (UA) Negative (Negative) Urine Ketones Negative (Negative) Urine Blood Trace-intact H (Negative) Urine Nitrite Negative (Negative) Urine Bilirubin Negative (Negative) Urine Urobilinogen Negative (Negative) Ur Leukocyte Esterase Negative (Negative) Urine RBC 0-4 (0-4) /hpf Urine WBC 0-5 (0-5) /hpf Ur Epithelial Cells 0-5 (0-5) /lpf Other Crystals Tal[place] (None Prsent) Urine Bacteria Negative (Negative) SARS-CoV-2, RNA, NAAT (NEGATIVE) Blood Type Antibody Screen Administered Medications Discontinued Medications Clopidogrel Bisulfate (Clopidogrel Bisulfate 300 Mg Tab) 300 mg PO NOW STA Stop: 05/17/22 08:40 Last Admin: 05/17/22 08:45 Dose: 300 mg Documented By: ROBLES Sodium Chloride (Nss 1000ml) 500 mls @ 999 mls/hr IV .Q31M ONE Stop: 05/17/22 09:09 Last Infusion: 05/17/22 09:25 Dose: 0 mls/hr Documented By: Admin: 05/17/22 08:54 Dose: 999 mls/hr Documented By: ROBLES Magnesium Sulfate/Dextrose (Magnesium Sulfate / D5w) 1 gm in 100 mls @ 200 mls/hr IV Q30M MEJIA Stop: 05/17/22 09:38 Last Infusion: 05/17/22 09:46 Dose: 0 mls/hr Documented By: Admin: 05/17/22 09:16 Dose: 200 mls/hr Documented By: Infusion: 05/17/22 09:16 Dose: 200 mls/hr Documented By: Admin: 05/17/22 08:46 Dose: 200 mls/hr Documented By: ROBLES Ioversol (Optiray 320 500ml) 101 ml IV ONCE ONE Stop: 05/17/22 08:19 Last Admin: 05/17/22 08:19 Dose: 101 ml Documented By: AW Imaging Data Radiologist's Impression: Head CT 05/17/22 08:[address] DOSE: HISTORY: Slurred speech. neuro deficit, acute stroke suspected, aphasia TECHNIQUE: Multiaxial CT images of the head were performed without the use of intravenous contrast. Automated exposure control was utilized for this study. A dose lowering technique was utilized adhering to the principles of ALARA. Comparison: None. Findings: The paranasal sinuses and mastoid air cells are clear. Moderate to large area of hypodensity within the left frontal temporal region with loss of the villatoro-white junction consistent with an acute infarct. Focal hyperdensity within a branch of the left MCA within the sylvian fissure on image 17 consistent with a focal thrombus. No mass, hematoma, midline shift. Impression: Moderate to large left MCA territory acute infarct with evidence for a left MCA thrombus within a branch of the left sylvian fissure. ACT 112: Negative or not required by law. Electronically signed by: Da Taylor M.D. 05/17/2022 8:26 AM Head CTA 05/17/22 08:04 CT angio neck with con, CT angio head w con CLINICAL HISTORY: neuro deficit, acute stroke suspected TECHNIQUE: CT angiography of the head and neck was performed following intravenous administration of iodinated contrast. Coronal and sagittal MIPS were obtained from the axial data set and were submitted for review. Automated dose lowering techniques and/or adjustment according to patient size were utilized for this examination. All measurements were calculated based on NASCET criteria. CT DOSE: 1216.79 mGy.cm Comparison: Comparison is made to CT head 05/17/2022 FINDINGS: Lungs and soft tissues are unremarkable. CTA Neck: A 3 vessel aortic arch is shown. There is no significant atherosclerotic plaque in the aortic arch or the origins of the innominate, left common carotid, and left subclavian arteries. The common carotid, external carotid, cervical segments of the internal carotid arteries, and the cervical segments of the vertebral arteries are patent without hemodynamically significant stenosis. The left vertebral artery is dominant. CTA Head: The anterior and posterior cerebral circulations are patent. There is abrupt cut off of a sylvian branch of the right MCA (series 5 image 146) The right vertebral artery terminates before joining to form the basilar artery. IMPRESSION: 1. No occlusion, hemodynamically significant stenosis, or dissection in the major cervical arteries. 2. Abrupt cut off of a sylvian branch of the right MCA compatible with acute infarct. Assessment of stenosis of the internal carotid arteries is based on NASCET cr iteria. ACT 112: Negative or not required by law. Electronically signed by: Noe Benjamin M.D. 05/17/2022 8:35 AM Neck CTA 05/17/22 08:04 CT angio neck with con, CT angio head w con CLINICAL HISTORY: neuro deficit, acute stroke suspected TECHNIQUE: CT angiography of the head and neck was performed following intravenous administration of iodinated contrast. Coronal and sagittal MIPS were obtained from the axial data set and were submitted for review. Automated dose lowering techniques and/or adjustment according to patient size were utilized for this examination. All measurements were calculated based on NASCET criteria. CT DOSE: 1216.79 mGy.cm Comparison: Comparison is made to CT head 05/17/2022 FINDINGS: Lungs and soft tissues are unremarkable. CTA Neck: A 3 vessel aortic arch is shown. There is no significant atherosclerotic plaque in the aortic arch or the origins of the innominate, left common carotid, and left subclavian arteries. The common carotid, external carotid, cervical segments of the internal carotid arteries, and the cervical s egments of the vertebral arteries are patent without hemodynamically significant stenosis. The left vertebral artery is dominant. CTA Head: The anterior and posterior cerebral circulations are patent. There is abrupt cut off of a sylvian branch of the right MCA (series 5 image 146) The right vertebral artery terminates before joining to form the basilar artery. IMPRESSION: 1. No occlusion, hemodynamically significant stenosis, or dissection in the major cervical arteries. 2. Abrupt cut off of a sylvian branch of the right MCA compatible with acute infarct. Assessment of stenosis of the internal carotid arteries is based on NASCET criteria. ACT 112: Negative or not required by law. Electronically signed by: Noe Benjamin M.D. 05/17/2022 8:35 AM Discharge Plan Visit Data Chief Complaint: TIA Symptoms Stated Complaint: UNABLE TO COMMUNICATE ED Provider: Ketan Baker Discharge Problem: Acute CVA (cerebrovascular accident), Aphasia Patient Disposition: Admitted As Inpatient Discharge Instructions Interventions: ED Discharge Assessment Last Done: 05/17/22 12:28
--- NOTE | 2022-05-17 08:28 | CT Scan Report ---
HEAD CT NONCONTRAST CT DOSE: HISTORY: Slurred speech. neuro deficit, acute stroke suspected, aphasia TECHNIQUE: Multiaxial CT images of the head were performed without the use of intravenous contrast. A utomated exposure control was utilized for this study. A dose lowering technique was utilized adheri ng to the principles of ALARA. Comparison: None. Findings: The paranasal sinuses and mastoid air cells are clear. Moderate to large area of hypodensit y within the left frontal temporal region with loss of the villatoro-white junction consistent with an acu te infarct. Focal hyperdensity within a branch of the left MCA within the sylvian fissure on image 17 consistent with a focal thrombus. No mass, hematoma, midline shift. Impression: Moderate to large left MCA territory acute infarct with evidence for a left MCA thrombus within a bra nch of the left sylvian fissure. ACT 112: Negative or not required by law. Electronically signed by: Da Taylor M.D. 05/17/2022 8:26 AM
--- NOTE | 2022-05-17 08:37 | CT Scan Report ---
CT angio neck with con, CT angio head w con CLINICAL HISTORY: neuro deficit, acute stroke suspected TECHNIQUE: CT angiography of the head and neck was performed following intravenous administration of iodinated contrast. Coronal and sagittal MIPS were obtained from the axial data set and were submitte d for review. Automated dose lowering techniques and/or adjustment according to patient size were ut ilized for this examination. All measurements were calculated based on NASCET criteria. CT DOSE: 1216.79 mGy.cm Comparison: Comparison is made to CT head 05/17/2022 FINDINGS: Lungs and soft tissues are unremarkable. CTA Neck: A 3 vessel aortic arch is shown. There is no significant atherosclerotic plaque in the aor tic arch or the origins of the innominate, left common carotid, and left subclavian arteries. The co mmon carotid, external carotid, cervical segments of the internal carotid arteries, and the cervical segments of the vertebral arteries are patent without hemodynamically significant stenosis. The left vertebral artery is dominant. CTA Head: The anterior and posterior cerebral circulations are patent. There is abrupt cut off of a sylvian branch of the right MCA (series 5 image 146) The right vertebral artery terminates before simi carla to form the basilar artery. IMPRESSION: 1. No occlusion, hemodynamically significant stenosis, or dissection in the major cervical arteries. 2. Abrupt cut off of a sylvian branch of the right MCA compatible with acute infarct. Assessment of stenosis of the internal carotid arteries is based on NASCET criteria. ACT 112: Negative or not required by law. Electronically signed by: Noe Benjamin M.D. 05/17/2022 8:35 AM
[2022-05-17] MEDS ORDERED: SODIUM CHLORIDE 0.9% 1000ML 500 ML IV ONE (08:39)
[2022-05-17] MEDS ORDERED: CLOPIDOGREL BISULFATE 300 MG TAB PO STA (08:39)
[2022-05-17 08:46] LABS: Basophils # (auto) 0.01 K/uL (0-0.2); Basophils % (auto) 0.2 %; Eosinophils # (auto) 0.21 K/uL (0-0.50); Eosinophils % (auto) 3.8 %; Hematocrit (blood only) 44.8 % (42.0-52.0); Hemoglobin 15.6 g/dl (14.0-18.0); Immature Granulocytes # (auto) 0.01 K/uL (0.01-0.20); Immature Granulocytes % (auto) 0.2 %; Lymphocytes # (auto) 1.65 K/uL (1.2-3.4); Lymphocytes % (auto) 29.6 %; Mean Corpuscular Hgb Conc 34.8 g/dL (32.0-36.0); Mean Corpuscular Volume 89.1 fL (80.0-100.0); Mean Platelet Volume 9.7 fL (9.4-12.4); Monocytes # (auto) 0.52 K/uL (0.11-0.59); Monocytes % (auto) 9.3 %; Neutrophils # (auto) 3.18 K/uL (1.40-6.50); Neutrophils % (auto) 56.9 %; Platelet Count 164 K/uL (130-400); RDW Coefficient of Variation 12.8 % (11.5-14.5); RDW Standard Deviation 41.5 fL (36.4-46.3); Red Blood Count 5.03 M/uL (4.70-6.10); White Blood Count 5.58 K/ul (4.8-10.8)
[2022-05-17] MEDS: MAGNESIUM SULFATE / D5W 1 GM/100 ML BAG IV SCH ×2 (08:46→09:16)
[2022-05-17 09:04] LABS: Albumin Globulin Ratio 1.4 (0.9-2); Albumin Level 3.7 gm/dl (3.4-5.0); Bilirubin,Total 0.6 mg/dl (0.2-1.0); Calcium 8.8 mg/dl (8.6-10.3); Creatinine Clr Calc Pharmacy 58.5 ml/min; Est GFR (African American) 60.1 ml/min; Est GFR (Non-African American) 51.9 ml/min; Globulin 2.6 gm/dl (2.5-4.0); Magnesium 1.7 mg/dl (1.7-2.4); Potassium 3.8 mmol/L (3.5-5.1); Total Protein 6.3 gm/dl (6.0-8.3)
[2022-05-17 09:10] LABS: Troponin I High Sensitivity 18.8 pg/ml (0-20)
[2022-05-17 09:18] LABS: INR 1.1 (0.9-1.1); Partial Thromboplastin Ratio 1.1; Partial Thromboplastin Time 30.3 Seconds (21.0-31.0); Prothrombin Time 11.5 Seconds (9.0-12.0)
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
[2022-05-17 10:18] LABS: Appearance Urine Clear (Clear); Bilirubin Urine Negative (Negative); Blood Urine Trace-intact (Negative); Color Urine Yellow; Glucose Urine UA Negative (Negative); Ketones Urine Negative (Negative); Leukocyte Esterase Urine Negative (Negative); Nitrite Urine Negative (Negative); Protein Urine Trace (Negative); Urobilinogen Urine Negative (Negative)
[2022-05-17 10:41] LABS: Bacteria Urine Negative (Negative); Epithelial Cell Urine 0-5 /lpf (0-5); RBC Urine 0-4 /hpf (0-4); WBC Urine 0-5 /hpf (0-5)
--- NOTE | 2022-05-17 12:27 | Electrocardiogram Report ---
Test Reason : Blood Pressure : / mmHG Vent. Rate : 078 BPM Atrial Rate : 078 BPM P-R Int : 202 ms QRS Dur : 146 ms QT Int : 420 ms P-R-T Axes : 024 -65 097 degrees QTc Int : 478 ms Atrial-sensed ventricular-paced rhythm Abnormal ECG When compared with ECG of 31-JAN-2022 15:39, Electronic ventricular pacemaker has replaced Sinus rhythm Confirmed by Pee Churchill ([id number]) on 05/17/2022 12:27:40 PM Referred By: REFERRED SELF Confirmed By:Pee Churchill
[2022-05-17] MEDS ORDERED: FLUTICASONE PROPIONATE NA SPR 16 GM BTL PRN (14:52)
[2022-05-17 14:56] LABS: Chol HDL Ratio 3.7 (0-5)
--- NOTE | 2022-05-17 16:18 | XCELERA ---
[id number]
--- NOTE | 2022-05-17 16:53 | Magnetic Resonance Report ---
MRI OF THE BRAIN WITHOUT CONTRAST CLINICAL HISTORY: Cerebrovascular accident. COMPARISON STUDY: MRI of the brain July 20, [address] and CTA of the head May 17, 2022. TECHNIQUE: Utilizing a 1.5 Fannie magnet and dedicated coil, multiplanar, multiecho imaging of the bra in was performed without IV contrast. FINDINGS: Restricted diffusion within the left frontotemporal region corresponds to the finding on pr ior head CT. This measures approximately 4.9 x 3.1 cm in extent. This is hyperintense on the diffusio n-weighted sequence and hypointense on the ADC map. This represents an acute infarct. There is no milvia dence for hemorrhagic conversion. There is minimal mass effect with gyral swelling. No additional acu te infarcts are present. Ventricular system is normal. Basal cisterns are patent. There are no extra- axial collections. Numerous white matter T2 hyperintense foci suggest small vessel disease. Vertebral signal is normal. Small amount of fluid within left mastoid air cells is present. IMPRESSION: Acute moderate sized left MCA territory infarct, as described above. No evidence for hem orrhagic conversion. Minimal mass effect. ACT 112: Negative or not required by law. Electronically signed by: Dario Grier M.D. 05/17/2022 4:51 PM
[2022-05-17] MEDS: SODIUM CHLORIDE 0.9% 1000ML 1,000 ML IV SCH (17:09)
[2022-05-18] MEDS: SODIUM CHLORIDE 0.9% 1000ML 1,000 ML IV SCH (05:27)
[2022-05-18] MEDS ORDERED: ATORVASTATIN 40 MG TAB PO SCH (09:00)
[2022-05-18] MEDS ORDERED: ASPIRIN 81 MG ECTAB PO SCH ×2 (09:00)
[2022-05-18] MEDS ORDERED: CLOPIDOGREL BISULFATE 75 MG TAB PO SCH (09:00)
[2022-05-18] MEDS ORDERED: CEROVITE ADV FORMULA TAB PO SCH (09:00)
--- NOTE | 2022-05-18 11:41 | Discharge Summary ---
Date of Service May 18, 2022 Admission HPI Per Admitting Provider 81-year-old male who awoke from sleep this morning with aphasia. He has no peripheral deficits. He was brought to the ED for evaluation and a stroke alert was called. Head CT scan is negative for acute bleed. Head and neck CTA revealed right MCA cutoff consistent with acute ischemic CVA. He was seen in the ED by teleneurology. He was already on aspirin and he was loaded with Plavix. He will remain on dual antiplatelet therapy going forward. Fasting lipid profile and cardiac echo are ordered and pending. 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 No rales wheezing or rhonchi Cardiac-regular rate and rhythm, normal S1 and S2, no murmurs Abdomen-normal bowel sounds, nontender, no hepatosplenomegaly Extremities-no cyanosis, clubbing, or edema Neuro-cranial nerves II through XII intact, motor and sensory function within normal limits, strength symmetrical, he remains aphasic Psych-frustrated. Normal affect, normal mood Discharge Data Allergies Allergy/AdvReac Type Severity Reaction Status Date / Time No Known Drug Allergies Allergy Unknown Verified 05/17/22 09:14 Consultations 05/17/22 08:53 ED Decision to Admit Stat Ordered Studies 05/17/22 08:04 CT angio head w con Stat CT angio neck with con Stat CT head/brain wo con Stat 05/17/22 10:00 MRI Brain [MR brain wo con] Routine Hospital Course (1) Acute CVA (cerebrovascular accident): Ischemic in right MCA distribution. Brain MRI scan confirmatory. Continue dual antiplatelet therapy. OT, PT, speech evaluations appreciated. We will continue speech therapy at discharge ordered (2) Sick sinus syndrome: Permanent cardiac pacemaker is in place. Current EKG reveals normal sinus rhythm. Telemetry (3) GERD (gastroesophageal reflux disease): Protonix therapy while hospitalized (4) Dyslipidemia: Fasting lipid profile noted. He is now on atorvastatin (5) Neoplasm of prostate, malignant: No intervention necessary at this time (6) Hypertension: Losartan, indapamide, amlodipine are held while admitted. These can be restarted at discharge (7) Obstructive sleep apnea: CPAP at bedtime if needed Plan Home today, May 18. Continue speech therapy. 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 Blood pressure medications can be restarted when you get home. Pending Studies at Discharge: No Stand-Alone Forms: [employer], Smoking Cessation Medications and DC Order Prescriptions: New atorvastatin 40 mg Tablet 80 mg PO QAM Qty: 30 0RF clopidogrel 75 mg Tablet 75 mg PO QAM Qty: 30 0RF aspirin 81 mg Tablet,Delayed Release (Dr/Ec) 81 mg PO QAM Qty: 0 0RF Continued losartan 100 mg tablet 100 mg PO DAILY Qty: 90 3RF amlodipine 5 mg tablet 5 mg PO DAILY Qty: 90 3RF (DME) CPAP Machine Misc See Rx Instructions .MEDSUPPLY Qty: 1 0RF Rx Instructions: Auto CPAP 5-20 cm water pressure with heated humidification, tubing, and supplies. SHANELLE: 99+ years. Myrbetriq 50 mg tablet extended release 24 hr 50 mg PO HS Qty: 90 3RF oxybutynin chloride [Ditropan XL] 5 mg tablet extended release 24hr 5 mg PO QAM Qty: 90 3RF indapamide 1.25 mg tablet 1.25 mg PO QAM Qty: 90 3RF gabapentin 300 mg capsule 300 mg PO BID 90 Days Qty: 180 3RF cyanocobalamin (vitamin B-12) [Vitamin B-12] 1,000 mcg Tablet 1,000 mcg PO QAM aspirin [Josey Low Dose Aspirin] 81 mg Tablet,Delayed Release (Dr/Ec) 81 mg PO QAM cholecalciferol (vitamin D3) [Vitamin D3] 2,000 unit Capsule 2,000 unit PO QAM One Daily For Men 0.4-600 mg-mcg Tablet 1 tab PO QAM clotrimazole-betamethasone 1-0.05 % cream 1 appln topical BID PRN (Reason: rash/itching) ibuprofen 200 mg Capsule 200 - 600 mg PO UD PRN (Reason: Pain) mometasone [Nasonex] 50 mcg/actuation [place],Non-Aerosol 2 spray INTRANASAL HS PRN (Reason: Allergy Symptoms) Rx Instructions: administer into each nostril amoxicillin 500 mg Tablet 2,000 mg PO DIRECTED PRN (Reason: Dental procedures) Rx Instructions: Take 2000mg by mouth 30 minutes prior to any dental procedure. Discharge Orders: Discharge Order (Routine); Ordered 05/18/22 Ordered By: Panchito Yañez Admission Data Admit Date/Time: 05/17/22 11:57 Attending Provider: Panchito Yañez Admit Provider: Panchito Yñaez Primary Care Provider: Elmer Leal Other Providers: Panchito Yañez Coding Level of Care Code 25045 INP/OBS DISCH >30 MIN Diagnoses Acute CVA (cerebrovascular accident) I63.9 Sick sinus syndrome I49.5 GERD (gastroesophageal reflux disease) K21.9 Esophagitis presence: esophagitis presence not specified Dyslipidemia E78.5 Neoplasm of prostate, malignant C61 Hypertension I10 Obstructive sleep apnea G47.33
[2022-05-21 11:34] LABS: iSTAT Creatinine 1.4 mg/dl (0.6-1.3); iSTAT Ionized Calcium 1.22 mmol/l (1.12-1.32); iSTAT Potassium 3.8 mmol/L (3.3-5.0)
== END 2022-05-18 13:01 | disposition home health service (06) | DRG 66 ==
LOC: ED 07:56 → 2S 11:57
DX: C61 Malignant neoplasm of prostate; I63.312 Cerebral infarction due to thrombosis of left middle cerebral artery; Z79.82 Long term (current) use of aspirin; Z82.3 Family history of stroke; Z79.899 Other long term (current) drug therapy; I10 Essential (primary) hypertension; I35.0 Nonrheumatic aortic (valve) stenosis; G47.33 Obstructive sleep apnea (adult) (pediatric); R29.704 NIHSS score 4; K21.9 Gastro-esophageal reflux disease without esophagitis; E78.5 Hyperlipidemia, unspecified; Z82.49 Family history of ischemic heart disease and other diseases of the circulatory system; R47.01 Aphasia; Z86.79 Personal history of other diseases of the circulatory system; Z95.0 Presence of cardiac pacemaker

== ENCOUNTER 2023-10-19 01:25 | Inpatient (IN) ==
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
[2023-10-19] MEDS: ALBUT/IPRATROP 3MG/0.5MG NEB 3 ML VIAL NEB STA (01:59)
[2023-10-19] MEDS: dexAMETHasone**PF** 10 MG/ML VIAL IV ONE (01:59)
[2023-10-19 02:28] LABS: Basophils # (auto) 0.02 K/uL (0.00-0.20); Basophils % (auto) 0.2 %; Hematocrit (blood only) 46.8 % (42.0-52.0); Hemoglobin 16.1 g/dl (14.0-18.0); Immature Granulocytes # (auto) 0.12 K/uL (0.01-0.20); Immature Granulocytes % (auto) 1.1 %; Lymphocytes # (auto) 0.79 K/uL (1.20-3.40); Lymphocytes % (auto) 7.3 %; Mean Corpuscular Hemoglobin 30.4 pg (25.0-34.0); Mean Corpuscular Hgb Conc 34.4 g/dL (32.0-36.0); Mean Corpuscular Volume 88.5 fL (80.0-100.0); Mean Platelet Volume 10.2 fL (9.4-12.4); Monocytes # (auto) 0.57 K/uL (0.11-0.59); Monocytes % (auto) 5.3 %; Neutrophils % (auto) 86.1 %; Platelet Count 168 K/uL (130-400); RDW Coefficient of Variation 12.4 % (11.5-14.5); Red Blood Count 5.29 M/uL (4.70-6.10)
[2023-10-19 02:41] LABS: BUN Creatinine Ratio 18.1 (10-20); Bilirubin Direct 0.3 mg/dl (0-0.2); Calcium 9.6 mg/dl (8.6-10.3); Creatinine Clr Calc Pharmacy 47.1 ml/min; Est GFR (African American) 50.3 ml/min; Est GFR (Non-African American) 43.4 ml/min; Magnesium 1.8 mg/dl (1.7-2.4); Potassium 3.7 mmol/L (3.5-5.1); Total Protein 7.7 gm/dl (6.0-8.3)
[2023-10-19 02:59] LABS: Troponin I High Sensitivity 722.2 pg/ml (0-20)
[2023-10-19] MEDS: ACETAMINOPHEN 500 MG TAB PO STA (03:15)
[2023-10-19] MEDS: PIPERACILLIN/TAZOBACTAM 4.5 GM/100 ML BAG IV ONE (03:16)
[2023-10-19] MEDS: SODIUM CHLORIDE 0.9% 500 ML IV ONE (03:24)
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
[2023-10-19] MEDS: OPTIRAY 320 125ml IV ONE (04:37)
[2023-10-19] MEDS ORDERED: ONDANSETRON INJ 2 MG/ML 2 ML VIAL IV PRN (05:30)
[2023-10-19] MEDS ORDERED: ACETAMINOPHEN 325 MG TAB PO PRN (05:30)
[2023-10-19 05:41] LABS: Appearance Urine Cloudy (Clear); Bacteria Urine Automated None Seen (None Seen); Bilirubin Urine Negative (Negative); Blood Urine 1+ (Negative); Color Urine Dark Yellow; Epithelial Cell Urine Auto 0-2 /hpf (0-2); Glucose Urine UA Negative (Negative); Ketones Urine Trace (Negative); Leukocyte Esterase Urine Trace (Negative); Mucus Urine Present (None Prsent); Nitrite Urine Negative (Negative); Protein Urine 3+ (Negative); RBC Urine Automated 0-2 /hpf (0-2); Specific Gravity Urine 1.027 (1.000-1.030); Urobilinogen Urine Negative (Negative); WBC Urine Automated 0-5 /hpf (0-5); pH Urine 5.5 (4.5-7.5)
[2023-10-19] MEDS: LACTATED RINGER'S 1,000 ML IV SCH (06:21)
[2023-10-19] MEDS: AZITHROMYCIN 500 MG in DEXTROSE 5% 250 ML IV STA (06:21)
[2023-10-19 06:38] LABS: C Reactive Protein 21.3 mg/dl (0-0.5); Phosphorus 1.7 mg/dl (2.5-4.9)
[2023-10-19 06:47] LABS: Troponin I High Sensitivity 1079.8 pg/ml (0-20)
--- NOTE | 2023-10-19 07:53 | CT Scan Report ---
CT angio chest PE protocol CT DOSE: 847.05 mGy.cm HISTORY: 83 years-old Male with PE. Acute shortness of breath TECHNIQUE: Multiple CTA images of the chest were obtained after the intravenous administration of 119 ml Optiray. Coronal and sagittal MIPS were obtained from the axial data set and were submitted for review. All measurements were obtained according to NASCET criteria. A dose lowering technique was u tilized adhering to the principles of ALARA. COMPARISON: Chest radiograph of same day FINDINGS: CTA: Mild cardiomegaly. Dual-lead left subclavian pacer. No pericardial effusion. Extensive coronary arter y calcifications. No thoracic aortic aneurysm or dissection. No central pulmonary emboli identified. Evaluation of the pulmonary arterial tree is limited secondary to contrast bolus timing and respirato ry motion artifact. CT CHEST: No thyroid nodule. Borderline-enlarged mediastinal and hilar lymph nodes measure up to [address] eural effusions. No pneumothorax. Bronchial wall thickening noted in conjunction with patchy multilob ar distribution of alveolar opacities. 7 mm subpleural nodule of the lateral segment right middle lob e, image 83. Central airways are patent. No acute upper abdominal abnormality. Nonspecific bilateral perinephric stranding. Subcentimeter lymp h nodes are seen adjacent to the distal esophagus. Unremarkable soft tissues. Degenerative changes of the spine and right shoulder. Left shoulder arthroplasty. IMPRESSION: 1. Limited exam secondary to respiratory motion artifact. No central pulmonary emboli identified. 2. Patchy multilobar distribution of airspace opacities suggestive of multifocal pneumonia. 3. Borderline enlarged mediastinal and hilar lymph nodes, likely reactive. 4. Trace pleural effusions. 5. 7 mm subpleural nodule of the right middle lobe. Please refer to below summary of Fleischner criteria recommendations for follow-up of incidental CT n odules (Fabien Robbins, Guidelines for management of small pulmonary nodules detected on CT scans: A sta tement from the Fleischner Society, Radiology 237: [phone].) SOLID NODULES Solitary nodule size: 6-8 mm * Low risk patients: follow-up at 6-12 months, then consider further follow-up at 18-24 months * high risk patients: initial follow-up CT at 6-12 months and then at 18-24 months if no change Note: newly detected indeterminate nodule in persons 35 years of age or older. * Low risk patients: minimal or absent history of smoking and/or other known risk factors * high risk patients: history of smoking or of other known risk factors (e.g. first degree relative with lung cancer, or exposure to asbestos, radon, uranium) * if a nodule up to 8 mm is partly solid or is ground glass further follow-up is required after 24 m onths to exclude possible slow growing adenocarcinoma (ANA) ACT 112: Negative or not required by law. The above report was generated using voice recognition software. It may contain grammatical, syntax o r spelling errors. Electronically signed by: Tuan Allen M.D. 10/19/2023 7:51 AM
--- NOTE | 2023-10-19 08:26 | XRay Report ---
XR chest 1V portable HISTORY: 83 years-old Male Sepsis acute sepsis COMPARISON: CTA chest of same day TECHNIQUE: AP view of the chest FINDINGS: Cardiac silhouette is mildly enlarged. Patchy multifocal bilateral airspace opacities. No pneumothora x. Trace pleural effusions. Left subclavian dual-lead pacer. Reverse left shoulder arthroplasty. IMPRESSION: Multifocal pneumonia. ACT 112: Negative or not required by law. The above report was generated using voice recognition software. It may contain grammatical, syntax o r spelling errors. Electronically signed by: Tuan Allen M.D. 10/19/2023 8:23 AM
[2023-10-19] MEDS ORDERED: DEXAMETHASONE SOD INJ 4 MG/ML VIAL IV SCH (09:00)
[2023-10-19] MEDS: CYANOCOBALAMIN (B-12) 500 MCG TABLET PO SCH (09:01)
[2023-10-19] MEDS: CLOPIDOGREL BISULFATE 75 MG TAB PO SCH (09:01)
[2023-10-19] MEDS: dexAMETHasone 6 MG in SYRINGE 0 ML IV SCH (09:02)
[2023-10-19] MEDS: guaiFENesin/DEXTROM SYRUP 200MG/20MG 10ML UDC PO PRN (09:02)
[2023-10-19] MEDS: amLODIPine BESYLATE 5 MG TAB PO SCH (09:02)
[2023-10-19] MEDS: cefTRIAXone SODIUM 2,000 MG/50 ML BAG IV SCH (09:02)
[2023-10-19] MEDS: GABAPENTIN 300 MG CAP PO SCH (09:02)
[2023-10-19] MEDS: ATORVASTATIN 40 MG TAB PO SCH (09:02)
--- NOTE | 2023-10-19 13:39 | Hospitalist Progress Note ---
<Statement entered by Pily Hallman MD - 10/19/23 19:36> I have reviewed vital signs, chart notes, labs and imaging. I have personally seen, evaluated and examined the patient. I have also discussed the management of the patient with the SHELLI and I agree with the exam findings documented in the history and physical examination and the documented assessment and plan unless otherwise stated below. Elmer is feeling slightly better has some shortness of breath and cough. On exam he is alert he has some bilateral posterior scattered crackles that are mild no wheezing. no JVD no peripheral edema we will continue treatment for COVID-19 with hypoxia with dexamethasone daily and continue his antiviral. He may have superimposed bacterial pneumonia based on CT chest findings and elevation of procalcitonin so we will continue azithromycin and ceftriaxone Date of Service October 19, 2023 Assessment & Plan (1) COVID-19: Plan: 83yo with Covid-19. Patient with progressively worsening symptoms x 6 days. He has been on Molnupiravir at home with no improvement. Patient with sepsis present on admission - fever, tachycardia, hypoxia. -Maintain isolation precautions - BNP 201 - CRP 21.30 - Procalcitonin 1.16 - Supplemental O2 - Dexamethasone 6mg IV daily - Flutter valve and Incentive spirometry - Robitussin PRN - Tylenol PRN - Zofran PRN - Order placed for him to continue his home Molnupiravir -CTA Chest obtained - no PE identified, multifocal pneumonia, borderline enlarged mediastinal and hilar lymph nodes (likely reactive), trace pleural effusion, 7 mm subpleural nodule of the R middle lobe (2) Elevated troponin: Plan: Patient with no acute ischemic changes present on CXR. No patient complaints of chest pain. - Telemetry monitoring - Repeat EKG shows no significant changes. - Trend troponin 761.8 -> 1079.8 -> 881.1. Trending down - most likely to myocardial strain from Covid and not Acute Coronary Syndrome (3) Pneumonia: Plan: - Ceftriaxone and Axithromycin - Blood cultures pending (4) MOE (acute kidney injury): Plan: Patient with elevation of Cr to 1.49, slightly increased from last value of 1.39. Likely secondary to volume contraction - patient appears slightly dry on exam, reports that he hasn't been eating or drinking for several days -LR at 80mL/hr x 1L -Repeat chemistry in AM -Avoid nephrotoxic agents -Renal dosing where needed Plan Hypertension -Continue Amlodipine with caution Hyperlipidemia -Continue Lipitor Prior CVA -Continue Plavix -Continue Lipitor CESAR - patient wears CPAP qHS F/E/N - LR at 80mL/hr x 1L, monitor electrolytes and renal function, regular diet as tolerated with aspiration precautions PPx - SCDs - Heparin Code - Full Dispo - Admit to [facility] tele Admission and Anticipated Discharge Date Admission Date: October 19, 2023 Ciara Payne is a pleasant 83 y/o male who presented to the hospital with COVID-19 on antiviral medicine with worsening SOB, productive cough, chest pain and reduced oral intake x 6 days. In the ER he was febrile, tachycardic, 89% on RA (improved with 3LNC). No underlying lung dx. No home O2. CTA chest showed no pulmonary emboli, patchy multilobular distribution of airspace opacities suggestive of multifocal pneumonia, borderline enlarged mediastinal and hilar lymph nodes (likely reactive), trace pleural effusions, and a 7 mm subpleural nodule in the R middle lobe. CXR showed multifocal pneumonia. He no longer has chest pain and reports an improvement of his SOB. His appetite has returned and he feels hungry. He has some SOB when ambulating to the bathroom, but none at rest. He has not had a dose of his home antiviral since he arrived. He is getting dexamethasone once daily. Review of Systems Constitutional: no fever, no chills and no sweats Respiratory: + dyspnea on exertion; no dyspnea (No dy spnea at rest) Cardiovascular: no chest pain, no palpitations and no edema Gastrointestinal: no abdominal pain, no nausea, no vomiting, no dysphagia and no change in stools Genitourinary: no dysuria or no difficulty urinating Musculoskeletal: no back pain, no joint pain, no deformity and no limited range of motion Integumentary: no change in skin color Neurologic: no falls Physical Exam Constitutional: well developed, well nourished and cooperative; no acute distress and not frail appearing Eyes: PERRL, conjunctivae normal, anicteric sclerae ENMT: Mouth: no lip abnormality and oral mucous membranes not dry Respiratory: normal respiratory effort, lungs clear to auscultation Cardiovascular: RRR, no murmur, no edema Gastrointestinal (Abdomen): Inspection/Auscultation: abdomen normal to inspection and normal bowel sounds; abdomen not distended Percussion/Palpati on: abdomen soft; abdomen nontender and no guarding Musculoskeletal: Extremities: extremities normal to inspection Skin: no rashes, warm and dry Neurologic: PERRL, EOMI, accommodation nl, no face palsy, no dysarthria Psychiatric: A+Ox3, euthymic affect Results & Data Results & Data Vital Signs (Past 12 Hours) Vital Signs Temp Pulse Pulse Resp BP BP Pulse Ox 10/19/23 10:03 74 22 129/73 93 10/19/23 08:51 72 20 128/80 93 10/19/23 08:00 76 20 134/78 96 10/19/23 07:36 81 22 134/85 93 10/19/23 07:31 134/85 10/19/23 07:12 76 20 145/84 H 92 10/19/23 06:53 78 10/19/23 06:42 10/19/23 06:28 36.8 C 80 18 144/77 H 96 10/19/23 04:03 36.8 C 97 H 20 126/79 94 10/19/23 03:11 93 H 20 122/65 93 10/19/23 02:12 94 10/19/23 02:10 102 H 20 115/74 94 10/19/23 01:35 89 L 10/19/23 01:35 38.0 C H 103 H 24 141/87 H 89 L 10/19/23 01:34 107 H O2 Del Method O2 Flow Rate 10/19/23 10:03 Room Air 3 10/19/23 08:51 Nasal Cannula 3 10/19/23 08:00 Nasal Cannula 3 10/19/23 07:36 Nasal Cannula 3 10/19/23 07:31 10/19/23 07:12 3 10/19/23 06:53 10/19/23 06:42 Nasal Cannula 3 10/19/23 06:28 Nasal Cannula 3 10/19/23 04:03 Nasal Cannula 3 10/19/23 03:11 Nasal Cannula 3 10/19/23 02:12 Nasal Cannula 3 10/19/23 02:10 Nasal Cannula 3 10/19/23 01:35 Room Air, Nasal Cannula 0 10/19/23 01:35 Room Air 10/19/23 01:34 Laboratory Results 10/19/23 10/19/23 10/19/23 Range/Units 11:32 05:59 04:26 WBC (4.8-10.8) K/ul RBC (4.70-6.10) M/uL Hgb (14.0-18.0) g/dl Hct (42.0-52.0) % MCV (80.0-100.0) fL MCH (25.0-34.0) pg MCHC (32.0-36.0) g/dL RDW Std Deviation (36.4-46.3) fL RDW Coeff of Jennifer (11.5-14.5) % Plt Count (130-400) K/uL MPV (9.4-12.4) fL Immature Gran % (Auto) % Neut % (Auto) % Lymph % (Auto) % Reynolds % (Auto) % Eos % (Auto) % Baso % (Auto) % Neut # (Auto) (1.40-6.50) K/uL Lymph # (Auto) (1.20-3.40) K/uL Reynolds # (Auto) (0.11-0.59) K/uL Eos # (Auto) (0.00-0.50) K/uL Baso # (Auto) (0.00-0.20) K/uL Immature Gran # (Auto) (0.01-0.20) K/uL Sodium (136-145) mmol/L Potassium (3.5-5.1) mmol/L Chloride (98-107) mmol/L Carbon Dioxide (21-32) mmol/L Anion Gap (3-11) BUN (6-23) mg/dl Creatinine (0.6-1.4) mg/dl Est Cr Clr Drug Dosing ml/min Est GFR ( Amer) ml/min Est GFR (Non-Af Amer) ml/min BUN/Creatinine Ratio (10-20) Glucose (70-99(Fasting)) mg/dl Lactate (0.4-2.0) mmol/L Calcium (8.6-10.3) mg/dl Phosphorus 1.7 L (2.5-4.9) mg/dl Magnesium (1.7-2.4) mg/dl Total Bilirubin (0.2-1.0) mg/dl Direct Bilirubin (0-0.2) mg/dl AST (13-39) U/L ALT (7-52) U/L Alkaline Phosphatase (34-104) U/L Troponin I High Sens 888.1 H* 1079.8 H* D (0-20) pg/ml C-Reactive Protein 21.30 H (0-0.5) mg/dl B-Natriuretic Peptide 201 H (0-100) pg/ml Total Protein (6.0-8.3) gm/dl Albumin (3.4-5.0) gm/dl Procalcitonin (0-0.5) ng/ml Urine Color Dark Yellow Urine Appearance Cloudy A (Clear) Urine pH 5.5 (4.5-7.5) Ur Specific [place] 1.027 (1.000-1.030) Urine Protein 3+ H (Negative) Urine Glucose (UA) Negative (Negative) Urine Ketones Trace H (Negative) Urine Blood 1+ H (Negative) Urine Nitrite Negative (Negative) Urine Bilirubin Negative (Negative) Urine Urobilinogen Negative (Negative) Ur Leukocyte Esterase Trace H (Negative) Urine WBC (Auto) 0-5 (0-5) /hpf Urine RBC (Auto) 0-2 (0-2) /hpf U Hyaline Cast (Auto) 6-10 H (0-2) /lpf U Epithel Cells (Auto) 0-2 (0-2) /hpf Urine Bacteria (Auto) None Seen (None Seen) Urine Mucus Present A (None Prsent) 10/19/23 10/19/23 Range/Units 03:59 01:46 WBC 10.80 (4.8-10.8) K/ul RBC 5.29 (4.70-6.10) M/uL Hgb 16.1 (14.0-18.0) g/dl Hct 46.8 (42.0-52.0) % MCV 88.5 (80.0-100.0) fL MCH 30.4 (25.0-34.0) pg MCHC 34.4 (32.0-36.0) g/dL RDW Std Deviation 40.0 (36.4-46.3) fL RDW Coeff of Jennifer 12.4 (11.5-14.5) % Plt Count 168 (130-400) K/uL MPV 10.2 (9.4-12.4) fL Immature Gran % (Auto) 1.1 % Neut % (Auto) 86.1 % Lymph % (Auto) 7.3 % Reynolds % (Auto) 5.3 % Eos % (Auto) 0.0 % Baso % (Auto) 0.2 % Neut # (Auto) 9.30 H (1.40-6.50) K/uL Lymph # (Auto) 0.79 L (1.20-3.40) K/uL Reynolds # (Auto) 0.57 (0.11-0.59) K/uL Eos # (Auto) 0.00 (0.00-0.50) K/uL Baso # (Auto) 0.02 (0.00-0.20) K/uL Immature Gran # (Auto) 0.12 (0.01-0.20) K/uL Sodium 134 L (136-145) mmol/L Potassium 3.7 (3.5-5.1) mmol/L Chloride 96 L (98-107) mmol/L Carbon Dioxide 27 (21-32) mmol/L Anion Gap 11 (3-11) BUN 27 H (6-23) mg/dl Creatinine 1.49 H (0.6-1.4) mg/dl Est Cr Clr Drug Dosing 47.1 ml/min Est GFR ( Amer) 50.3 ml/min Est GFR (Non-Af Amer) 43.4 ml/min BUN/Creatinine Ratio 18.1 (10-20) Glucose 132 H (70-99(Fasting)) mg/dl Lactate 1.5 2.4 H* (0.4-2.0) mmol/L Calcium 9.6 (8.6-10.3) mg/dl Phosphorus (2.5-4.9) mg/dl Magnesium 1.8 (1.7-2.4) mg/dl Total Bilirubin 1.0 (0.2-1.0) mg/dl Direct Bilirubin 0.3 H (0-0.2) mg/dl AST 62 H (13-39) U/L ALT 43 (7-52) U/L Alkaline Phosphatase 138 H (34-104) U/L Troponin I High Sens 761.8 H* 722.2 H* (0-20) pg/ml C-Reactive Protein (0-0.5) mg/dl B-Natriuretic Peptide (0-100) pg/ml Total Protein 7.7 (6.0-8.3) gm/dl Albumin 4.0 (3.4-5.0) gm/dl Procalcitonin 1.16 H (0-0.5) ng/ml Urine Color Urine Appearance (Clear) Urine pH (4.5-7.5) Ur Specific [place] (1.000-1.030) Urine Protein (Negative) Urine Glucose (UA) (Negative) Urine Ketones (Negative) Urine Blood (Negative) Urine Nitrite (Negative) Urine Bilirubin (Negative) Urine Urobilinogen (Negative) Ur Leukocyte Esterase (Negative) Urine WBC (Auto) (0-5) /hpf Urine RBC (Auto) (0-2) /hpf U Hyaline Cast (Auto) (0-2) /lpf U Epithel Cells (Auto) (0-2) /hpf Urine Bacteria (Auto) (None Seen) Urine Mucus (None Prsent) Diagnostic Findings Chest X-Ray 10/19/23 01:33 XR chest 1V portable HISTORY: 83 years-old Male Sepsis acute sepsis COMPARISON: CTA chest of same day TECHNIQUE: AP view of the chest FINDINGS: Cardiac silhouette is mildly enlarged. Patchy multifocal bilateral airspace opacities. No pneumothorax. Trace pleural effusions. Left subclavian dual-lead pacer. Reverse left shoulder arthroplasty. IMPRESSION: Multifocal pneumonia. ACT 112: Negative or not required by law. The above report was generated using voice recognition software. It may contain grammatical, syntax or spelling errors. Electronically signed by: Tuan Allen M.D. 10/19/2023 8:23 AM Chest CTA 10/19/23 03:09 CT angio chest PE protocol CT DOSE: 847.05 mGy.cm HISTORY: 83 years-old Male with PE. Acute shortness of breath TECHNIQUE: Multiple CTA images of the chest were obtained after the intravenous administration of 119 ml Optiray. Coronal and sagittal MIPS were obtained from the axial data set and were submitted for review. All measurements were obtained according to NASCET criteria. A dose lowering technique was utilized adhering to the principles of ALARA. COMPARISON: Chest radiograph of same day FINDINGS: CTA: Mild cardiomegaly. Dual-lead left subclavian pacer. No pericardial effusion. Extensive coronary artery calcifications. No thoracic aortic aneurysm or dissection. No central pulmonary emboli identified. Evaluation of the pulmonary arterial tree is limited secondary to contrast bolus timing and respiratory motion artifact. CT CHEST: No thyroid nodule. Borderline-enlarged mediastinal and hilar lymph nodes measure up to 1 cm. Trace pleural effusions. No pneumothorax. Bronchial wall thickening noted in conjunction with patchy multilobar distribution of alveolar opacities. 7 mm subpleural nodule of the lateral segment right middle lobe, image 83. Central airways are patent. No acute upper abdominal abnormality. Nonspecific bilateral perinephric stranding. Subcentimeter lymph nodes are seen adjacent to the distal esophagus. Unremarkable soft tissues. Degenerative changes of the spine and right shoulder. Left shoulder arthroplasty. IMPRESSION: 1. Limited exam secondary to respiratory motion artifact. No central pulmonary emboli identified. 2. Patchy multilobar distribution of airspace opacities suggestive of multifocal pneumonia. 3. Borderline enlarged mediastinal and hilar lymph nodes, likely reactive. 4. Trace pleural effusions. 5. 7 mm subpleural nodule of the right middle lobe. Please refer to below summary of Fleischner criteria recommendations for follow- up of incidental CT nodules (Fabien Robbins, Guidelines for management of small pulmonary nodules detected on CT scans: A statement from the Fleischner Society, Radiology 237: [phone].) SOLID NODULES Solitary nodule size: 6-8 mm * Low risk patients: follow-up at 6-12 months, then consider further follow-up at 18-24 months * high risk patients: initial follow-up CT at 6-12 months and then at 18-24 months if no change Note: newly detected indeterminate nodule in persons 35 years of age or older. * Low risk patients: minimal or absent history of smoking and/or other known risk factors * high risk patients: history of smoking or of other known risk factors (e.g. first degree relative with lung cancer, or exposure to asbestos, radon, uranium) * if a nodule up to 8 mm is partly solid or is ground glass further follow-up is required after 24 months to exclude possible slow growing adenocarcinoma (ANA) ACT 112: Negative or not required by law. The above report was generated using voice recognition software. It may contain grammatical, syntax or spelling errors. Electronically signed by: Tuan Allen M.D. 10/19/2023 7:51 AM PG Care Time/CCT Total # of Minutes Spent Total Time Spent with Patient: Total time spent is greater than 50% in coordination of care (as documented) at patient's floor/unit and/or counseling patient: [place] [address] SUB INP/OBS CARE 3/50MIN Patient Type Established History Expanded Problem Focused Exam Expanded Problem Focused Medical Decision Making Moderate Complexity Diagnoses COVID-19 U07.1 Elevated troponin R79.89 Pneumonia J18.9 MOE (acute kidney injury) N17.9
[2023-10-19] MEDS: HEPARIN SOD 5,000 UNIT/0.5 ML VIAL SQ SCH (14:57)
--- NOTE | 2023-10-19 19:32 | XCELERA ---
[id number]
[2023-10-19] MEDS: MOLNUPIRAVIR 200 MG PO SCH (20:37)
[2023-10-20] MEDS: AZITHROMYCIN 250 MG in DEXTROSE 5% 250 ML IV SCH (04:42)
[2023-10-20 06:56] LABS: Albumin Level 3.7 gm/dl (3.4-5.0); Bilirubin Direct 0.1 mg/dl (0-0.2); Bilirubin,Total 0.6 mg/dl (0.2-1.0); Calcium 8.7 mg/dl (8.6-10.3); Potassium 3.4 mmol/L (3.5-5.1)
[2023-10-20 07:02] LABS: BUN Creatinine Ratio 25.6 (10-20); Creatinine Clr Calc Pharmacy 54.4 ml/min; Est GFR (African American) 59.9 ml/min; Est GFR (Non-African American) 51.7 ml/min; Total Protein 6.9 gm/dl (6.0-8.3)
[2023-10-20 07:36] LABS: Hematocrit (blood only) 42.3 % (42.0-52.0); Hemoglobin 14.9 g/dl (14.0-18.0); Mean Corpuscular Hemoglobin 30.7 pg (25.0-34.0); Mean Corpuscular Hgb Conc 35.2 g/dL (32.0-36.0); Mean Platelet Volume 10.4 fL (9.4-12.4); Platelet Count 165 K/uL (130-400); RDW Coefficient of Variation 12.5 % (11.5-14.5); RDW Standard Deviation 39.9 fL (36.4-46.3); Red Blood Count 4.86 M/uL (4.70-6.10); White Blood Count 13.91 K/ul (4.8-10.8)
--- NOTE | 2023-10-20 15:07 | Hospitalist Progress Note ---
<Statement entered by Pily Hallman MD - 10/20/23 16:06> I have reviewed vital signs, chart notes, labs and imaging. I have personally seen, evaluated and examined the patient. I have also discussed the management of the patient with the SHELLI and I agree with the exam findings documented in the history and physical examination and the documented assessment and plan unless otherwise stated below. Date of Service October 20, 2023 Assessment & Plan (1) COVID-19: Plan: 83yo with Covid-19. Patient with progressively worsening symptoms x 6 days. He had been on Molnupiravir at home with no improvement. Patient with sepsis present on admission - fever, tachycardia, hypoxia. Since admission, his SOB has improved, VSS. Continues on 3LNC. -Maintain isolation precautions for Covid. - BNP 201, CRP 21.30, Procalcitonin 1.16 on admission. - Supplemental O2 - Dexamethasone 6mg IV daily. WBC 13.91 today, slightly increased most likely due to steroid use. - Flutter valve and Incentive spirometry - Robitussin, Tylenol and Zofran PRN - Continue his home Molnupiravir - CTA Chest - no PE identified, multifocal pneumonia, borderline enlarged mediastinal and hilar lymph nodes (likely reactive), trace pleural effusion, 7 mm subpleural nodule of the R middle lobe - Could consider discharge tomorrow. (2) Elevated troponin: Plan: Patient with no acute ischemic changes present on CXR. No patient complaints of chest pain. - Telemetry monitoring - Repeat EKG shows no significant changes. - Trend troponin 761.8 -> 1079.8 -> 881.1. Trending down - most likely to walt cardial strain from Covid and not Acute Coronary Syndrome. (3) Pneumonia: Plan: Multifocal PNA on CTA. Covid + - Continue Ceftriaxone and Azithromycin - Blood culture preliminary results show no anaerobic or aerobic growth. (4) MOE (acute kidney injury): Plan: Patient with elevation of Cr to 1.49 --> 1.29 today - Avoid nephrotoxic agents - Renal dosing where needed - K was 3.4 today - replace with K 20 meq x 1. - Repeat BMP tomorrow Plan Hypertension Well controlled. -Continue Amlodipine with caution Hyperlipidemia -Continue Lipitor Prior CVA -Continue Plavix -Continue Lipitor CESAR - patient wears CPAP qHS PPx - SCDs - Heparin Code - Full Dispo - Admit to [facility] tele Admission and Anticipated Discharge Date Admission Date: October 19, 2023 Ciara Payne is a pleasant 83 y/o male who presented to the hospital with COVID-19 on antiviral medicine with worsening SOB, productive cough, chest pain and reduced oral intake x 6 days. In the ER he was febrile, tachycardic, 89% on RA (improved with 3LNC). No underlying lung dx. CTA chest showed no pulmonary emboli, patchy multilobular distribution of airspace opacities suggestive of multifocal pneumonia, borderline enlarged mediastinal and hilar lymph nodes (likely reactive), trace pleural effusions, and a 7 mm subpleural nodule in the R middle lobe. CXR showed multifocal pneumonia. He no longer has chest pain and reports an improvement of his SOB. His appetite has returned. He has some SOB when ambulating to the bathroom, but none at rest. Restarted home antiviral yesterday. He is getting dexamethasone once daily. Today he reports that he is ready to go home. He is still on 3LNC. Review of Systems Constitutional: no fever, no chills and no sweats Respiratory: + dyspnea on exertion; no dyspnea (No dy spnea at rest) Cardiovascular: no chest pain, no palpitations and no edema Gastrointestinal: no abdominal pain, no nausea, no vomiting, no dysphagia and no change in stools Genitourinary: no dysuria or no difficulty urinating Musculoskeletal: no back pain, no joint pain, no deformity and no limited range of motion Integumentary: no change in skin color Neurologic: no falls Physical Exam Constitutional: well developed, well nourished and cooperative; no acute distress and not frail appearing Eyes: PERRL, conjunctivae normal, anicteric sclerae ENMT: Mouth: no lip abnormality and oral mucous membranes not dry Respiratory: normal respiratory effort, lungs clear to auscultation Cardiovascular: RRR, no murmur, no edema Gastrointestinal (Abdomen): Inspection/Auscultation: abdomen normal to inspection and normal bowel sounds; abdomen not distended Percussion/Pa lpation: abdomen soft; abdomen nontender and no guarding Musculoskeletal: Extremities: extremities normal to inspection Skin: no rashes, warm and dry Neurologic: PERRL, EOMI, accommodation nl, no face palsy, no dysarthria Psychiatric: A+Ox3, euthymic affect Results & Data Results & Data Vital Signs (Past 12 Hours) Vital Signs Temp Pulse Pulse Pulse Resp BP Pulse Ox 10/20/23 12:59 36.6 C 78 18 137/75 95 10/20/23 08:49 36.9 C 75 18 137/83 94 10/20/23 07:50 81 10/20/23 04:00 36.7 C 89 18 131/80 95 O2 Del Method O2 Flow Rate 10/20/23 12:59 Room Air 10/20/23 08:49 Room Air 10/20/23 07:50 10/20/23 04:00 Nasal Cannula 3 Laboratory Results 10/20/23 10/20/23 10/19/23 Range/Units 07:17 06:18 18:44 WBC 13.91 H Cancelled RBC 4.86 Cancelled Hgb 14.9 Cancelled Hct 42.3 Cancelled MCV 87.0 Cancelled MCH 30.7 Cancelled MCHC 35.2 Cancelled RDW Std Deviation 39.9 Cancelled RDW Coeff of Jennifer 12.5 Cancelled Plt Count 165 Cancelled MPV 10.4 Cancelled Absolute Nucleated RBC Cancelled Nucleated RBC % (auto) Cancelled Platelet Estimate Cancelled Sodium 134 L (136-145) mmol/L Potassium 3.4 L (3.5-5.1) mmol/L Chloride 99 (98-107) mmol/L Carbon Dioxide 25 (21-32) mmol/L Anion Gap 10 (3-11) BUN 33 H (6-23) mg/dl Creatinine 1.29 (0.6-1.4) mg/dl Est Cr Clr Drug Dosing 54.4 ml/min Est GFR ( Amer) 59.9 ml/min Est GFR (Non-Af Amer) 51.7 ml/min BUN/Creatinine Ratio 25.6 H (10-20) Glucose 156 H (70-99(Fasting)) mg/dl Calcium 8.7 (8.6-10.3) mg/dl Total Bilirubin 0.6 (0.2-1.0) mg/dl Direct Bilirubin 0.1 (0-0.2) mg/dl AST 88 H (13-39) U/L ALT 61 H (7-52) U/L Alkaline Phosphatase 118 H (34-104) U/L Total Creatine Kinase 183 (30-223) U/L Troponin I High Sens 789.0 H* (0-20) pg/ml Total Protein 6.9 (6.0-8.3) gm/dl Albumin 3.7 (3.4-5.0) gm/dl PG Care Time/CCT Total # of Minutes Spent Total Time Spent with Patient: Total time spent is greater than 50% in coordination of care (as documented) at patient's floor/unit and/or counseling patient: [place] [address] SUB INP/OBS CARE 2/35MIN Patient Type Established History Expanded Problem Focused Exam Expanded Problem Focused Medical Decision Making Moderate Complexity Diagnoses COVID-19 U07.1 Elevated troponin R79.89 Pneumonia J18.9 MOE (acute kidney injury) N17.9
[2023-10-20] MEDS: POTASSIUM CHLORIDE CRTAB 20 MEQ TABCR PO STA (16:41)
--- NOTE | 2023-10-20 20:49 | Electrocardiogram Report ---
Test Reason : Blood Pressure : */* mmHG Vent. Rate : 102 BPM Atrial Rate : 102 BPM P-R Int : 160 ms QRS Dur : 150 ms QT Int : 406 ms P-R-T Axes : 43 -64 82 degrees QTcB Int : 529 ms Atrial-sensed ventricular-paced rhythm Abnormal ECG When compared with ECG of 17-May-2022 08:17, Vent. rate has increased by 24 bpm Confirmed by Marvel Britt ([id number]) on 10/20/2023 8:49:17 PM Referred By: REFERRED SELF Confirmed By: Marvel Britt
--- NOTE | 2023-10-20 20:50 | Electrocardiogram Report ---
Test Reason : Blood Pressure : */* mmHG Vent. Rate : 77 BPM Atrial Rate : 77 BPM P-R Int : 108 ms QRS Dur : 174 ms QT Int : 458 ms P-R-T Axes : -7 -58 81 degrees QTcB Int : 518 ms Atrial-sensed ventricular-paced rhythm with Premature ventricular complexes Abnormal ECG When compared with ECG of 19-Oct-2023 02:07, Premature ventricular complexes are now Present Vent. rate has decreased by 25 bpm Confirmed by Marvel Britt ([id number]) on 10/20/2023 8:49:54 PM Referred By: REFERRED SELF Confirmed By: Marvel Britt
[2023-10-21 07:21] LABS: Anion Gap 10 (3-11); Blood Urea Nitrogen 31 mg/dl (6-23); Calcium 8.6 mg/dl (8.6-10.3); Carbon Dioxide 26 mmol/L (21-32); Chloride 98 mmol/L (98-107); Creatinine Clr Calc Pharmacy 56.6 ml/min; Est GFR (African American) 62.8 ml/min; Est GFR (Non-African American) 54.2 ml/min; Glucose 131 mg/dl (70-99(Fasting)); Sodium 134 mmol/L (136-145)
[2023-10-21 08:15] VITALS: TEMP 97.9
[2023-10-21] MEDS: dexAMETHasone 4 MG TAB PO SCH (08:54)
[2023-10-21 11:13] VITALS: O2SAT 86
[2023-10-21 11:54] VITALS: BP 154/81; PULSE 89; RESP 20
--- NOTE | 2023-10-21 17:36 | Discharge Summary ---
Discharge Summary Date of Service October 21, 2023 Principal Dx & Hospital Course #1 = Principal Diagnosis (1) COVID-19: 83yo with Covid-19. Patient with progressively worsening symptoms x 6 days. He had been on Molnupiravir at home with no improvement. Patient with sepsis present on admission - fever, tachycardia, hypoxia. Since admission, his SOB has improved, hypoxia has improved and he became afebrile - BNP 201, CRP 21.30, Procalcitonin 1.16 on admission. - CTA Chest - no PE identified, multifocal pneumonia, borderline enlarged mediastinal and hilar lymph nodes (likely reactive), trace pleural effusion, 7 mm subpleural nodule of the R middle lobe Treated with steroids, antiviral, antibiotics for possible superimposed CAP based on chest CT findings and elevated procalcitonin - continued his Molnupiravir, last dose tonight - treated with steroids for hypoxia - continue dexamethasone 6 mg daily for 10 days, may discontinue early if no longer requiring oxygen - requiring 2L oxygen at time of discharge - home oxygen was set up (2) Elevated troponin: No acute ischemic changes present on EKGs, no chest pain, presentation not consistent with ACS. HS Troponin peak was 1100 then downtrended TTE was reassuring without rwma's, EF 55-65%, mild conc LVH, moderate , poor image quality overall Troponin elevation related to demand ischemia from COVID-19 and pneumonia (3) Pneumonia: Multifocal PNA on CTA. Covid + - treated with Ceftriaxone/cefuroxime and Azithromycin - Blood culture preliminary results show no anaerobic or aerobic growth (4) MOE (acute kidney injury): Mild MOE on CKD resolving Cr improved from 1.49 to 1.24 Baseline 1-1.3 Plan Hypertension Well controlled. -Continue Amlodipine, resume losartan on discharge Hyperlipidemia -Continue Lipitor Prior CVA -Continue Plavix -Continue Lipitor CESAR - patient wears CPAP qHS Incidental pulmonary nodule on CTA chest - 7mm right subpleural. No history of smoking, malignancy, FH of lung cancer so probably low risk. Follow up per Fleischner society guidelines: Solitary nodule size: 6-8 mm * Low risk patients: follow-up at 6-12 months, then consider further follow-up at 18-24 months * high risk patients: initial follow-up CT at 6-12 months and then at 18-24 months if no change I spoke with his by phone day of discharge and discussed plan of care Notes For Next Care Provider Incidental pulmonary nodule - follow up CT in 6-12 months, see above Discharged with home O2 2L Medication Changes From Visit dexamethasone, azithromycin, cefuroxime added Admission HPI Per Admitting Provider Elmer Flower is an 83yo male with history of HTN, GERD, CESAR on CPAP and prior CVA presenting with Covid-19 infection, worsening shortness of breath. Patient was diagnosed with Covid-19 6 days ago. Since then he has had worsening shortness of breath as well as cough productive for thick, brown sputum and chest pain. He has not been eating of drinking well for 6 days. He denies abdominal pain, nausea, vomiting, diarrhea or constipation. No additional complaints at this time. In the ER he is febrile, tachycardic, 89% on RA - improved to 94% with 3L supplemental O2. Patient with no known underlying lung disease and no use of home O2. ER Course: Tylenol Dexamethasone 10mg IV Zofran NSS Discharge Exam PHYSICAL EXAMINATION Last 24h vital signs reviewed, see documentation in flowsheet General: comfortable appearing, no distress HEENT: Normocephalic, atraumatic, pupils round and equal, sclerae anicteric, no conjunctival injection, moist mucus membranes Lungs: Normal respiratory effort. Clear to auscultation bilaterally except mild crackles left base. no wheezing Heart: Regular rate and rhythm, systolic murmur. No JVD Abdomen: Soft, nondistended. Bowel sounds present. Extremities: Warm, dry, well-perfused. No extremity edema. Neuro: Alert and oriented x 4, face symmetric, expressive aphasia unchanged, moves 4 extremities well Psych: Normal affect and behavior Discharge Plan Discharge Items Patient Disposition: Home - Self-Care Reason For Visit: COVID-19, HYPOXIA Discharge Diagnosis: COVID-19, pneumonia Activity: Resume your previous activity Non-emergency contact: Primary Care Provider Call non-emergency contact if: you have any medication questions, your symptoms worsen and you have a fever Follow-up/Referrals: Checo Maguire DO [Primary Care Provider] - 10/23/23 4:45 pm Diet: Regular Addtl Attending Provider Instructions: You were treated for COVID-19 and pneumonia Finish the course of antiviral (molnupiravir) until it runs out Take dexamethasone (steroid) daily until it runs out, you can stop it early if/when you're no longer needing oxygen -this reduces lung inflammation from COVID Finish the course of antibiotics - azithromycin two more doses, cefuroxime 8 more doses We prescribed home oxygen - 2L per nasal cannula at rest and with activity. Use this until your oxygen levels improve. It could be 1-2 weeks. Its a good idea to wear a mask around others for a few more days You might want to take a probiotic or eat live culture yogurt daily for 2-4 weeks to prevent antibiotic associated diarrhea. These are available over the counter. It was a pleasure taking care of you in the hospital, Pily Hallman MD Pending Studies at Discharge: Yes (blood culture - no growth to date) Stand-Alone Forms: My [facility] [employer], Smoking Cessation Medications and DC Order Prescriptions: New dexamethasone 6 mg tablet 6 mg PO DAILY Qty: 7 0RF azithromycin 250 mg tablet 250 mg PO DAILY Qty: 2 0RF cefuroxime axetil 500 mg tablet 500 mg PO BID Qty: 8 0RF Continued Myrbetriq 50 mg tablet extended release 24 hr 50 mg PO HS Qty: 90 3RF clopidogrel 75 mg tablet 75 mg PO QAM Qty: 90 3RF losartan 100 mg tablet 100 mg PO DAILY Qty: 90 3RF amlodipine 5 mg tablet 5 mg PO DAILY Qty: 100 3RF gabapentin 300 mg capsule 300 mg PO QAM 90 Days Qty: 90 3RF atorvastatin 80 mg tablet 80 mg PO DAILY Qty: 100 3RF (DME) CPAP Machine Misc See Rx Instructions .MEDSUPPLY Qty: 1 0RF Rx Instructions: Auto CPAP 5-20 cm water pressure with heated humidification, tubing, and supplies. SHANELLE: 99+ years. indapamide 1.25 mg tablet 1.25 mg PO QAM Qty: 90 3RF molnupiravir 200 mg capsule 800 mg PO Q12H 5 Days Qty: 40 0RF cyanocobalamin (vitamin B-12) [Vitamin B-12] 1,000 mcg Tablet 1,000 mcg PO QAM cholecalciferol (vitamin D3) [Vitamin D3] 2,000 unit Capsule 2,000 unit PO QAM One Daily For Men 0.4-600 mg-mcg Tablet 1 tab PO QAM clotrimazole-betamethasone 1-0.05 % cream 1 appln topical BID PRN (Reason: rash/itching) mometasone 50 mcg/actuation Sterrett,Non-Aerosol 2 spray INTRANASAL HS PRN (Reason: Allergy Symptoms) Rx Instructions: administer into each nostril amoxicillin 500 mg Tablet 2,000 mg PO DIRECTED PRN (Reason: Dental procedures) Rx Instructions: Take 2000mg by mouth 30 minutes prior to any dental procedure. cetirizine [Zyrtec] 10 mg Tablet 10 mg PO DAILY acetaminophen 500 mg Tablet 500 mg PO Q6H PRN (Reason: PAIN/FEVER) Coricidin HBP Flu 2-15-500 mg Tablet 2 tab PO Q6H gabapentin 400 mg capsule 400 mg PO HS Held ibuprofen 200 mg Capsule 200 - 600 mg PO UD PRN (Reason: Pain) Hold Instructions: Resume on 11/04/23. avoid for a few weeks to protect your kidneys Discharge Orders: Discharge Order (Routine); Ordered 10/21/23 Ordered By: Pily Steel/Other Patient Handouts: COVID-19 Home Care, COVID19 Home Disinfect, Dexamethasone Oral Tablet, Azithromycin Oral Tablet, Cefuroxime Oral Tablet, Using Oxygen Safely, Preventing Pneumonia, Using an Oxygen Tank at Home Admission Data Admit Date/Time: 10/19/23 03:37 Attending Provider: Pily Hallman Admit Provider: Gaye Goins Primary Care Provider: Checo Maguire Other Providers: Gaye Goins Other Interventions: Discharge Summary Assessment (RN) Last Done: 10/21/23 11:52 Hospital Stay Data Consultations 10/19/23 03:20 ED Decision to Admit Stat Diagnostic Imagining Performed 10/19/23 03:09 CT angio chest PE protocol Stat Chest X-Ray 10/19/23 01:33 XR chest 1V portable HISTORY: 83 years-old Male Sepsis acute sepsis COMPARISON: CTA chest of same day TECHNIQUE: AP view of the chest FINDINGS: Cardiac silhouette is mildly enlarged. Patchy multifocal bilateral airspace opacities. No pneumothorax. Trace pleural effusions. Left subclavian dual-lead pacer. Reverse left shoulder arthroplasty. IMPRESSION: Multifocal pneumonia. ACT 112: Negative or not required by law. The above report was generated using voice recognition software. It may contain grammatical, syntax or spelling errors. Electronically signed by: Tuan Allen M.D. 10/19/2023 8:23 AM Chest CTA 10/19/23 03:09 CT angio chest PE protocol CT DOSE: 847.05 mGy.cm HISTORY: 83 years-old Male with PE. Acute shortness of breath TECHNIQUE: Multiple CTA images of the chest were obtained after the intravenous administration of 119 ml Optiray. Coronal and sagittal MIPS were obtained from the axial data set and were submitted for review. All measurements were obtained according to NASCET criteria. A dose lowering technique was utilized adhering to the principles of ALARA. COMPARISON: Chest radiograph of same day FINDINGS: CTA: Mild cardiomegaly. Dual-lead left subclavian pacer. No pericardial effusion. Extensive coronary artery calcifications. No thoracic aortic aneurysm or dissection. No central pulmonary emboli identified. Evaluation of the pulmonary arterial tree is limited secondary to contrast bolus timing and respiratory motion artifact. CT CHEST: No thyroid nodule. Borderline-enlarged mediastinal and hilar lymph nodes measure up to 1 cm. Trace pleural effusions. No pneumothorax. Bronchial wall thickening noted in conjunction with patchy multilobar distribution of alveolar opacities. 7 mm subpleural nodule of the lateral segment right middle lobe, image 83. Central airways are patent. No acute upper abdominal abnormality. Nonspecific bilateral perinephric stranding. Subcentimeter lymph nodes are seen adjacent to the distal esophagus. Unremarkable soft tissues. Degenerative changes of the spine and right shoulder. Left shoulder arthroplasty. IMPRESSION: 1. Limited exam secondary to respiratory motion artifact. No central pulmonary emboli identified. 2. Patchy multilobar distribution of airspace opacities suggestive of multifocal pneumonia. 3. Borderline enlarged mediastinal and hilar lymph nodes, likely reactive. 4. Trace pleural effusions. 5. 7 mm subpleural nodule of the right middle lobe. Please refer to below summary of Fleischner criteria recommendations for follow- up of incidental CT nodules (Fabien Robbins, Guidelines for management of small pulmonary nodules detected on CT scans: A statement from the Fleischner Society, Radiology 237: [phone].) SOLID NODULES Solitary nodule size: 6-8 mm * Low risk patients: follow-up at 6-12 months, then consider further follow-up at 18-24 months * high risk patients: initial follow-up CT at 6-12 months and then at 18-24 months if no change Note: newly detected indeterminate nodule in persons 35 years of age or older. * Low risk patients: minimal or absent history of smoking and/or other known risk factors * high risk patients: history of smoking or of other known risk factors (e.g. first degree relative with lung cancer, or exposure to asbestos, radon, uranium) * if a nodule up to 8 mm is partly solid or is ground glass further follow-up is required after 24 months to exclude possible slow growing adenocarcinoma (ANA) ACT 112: Negative or not required by law. The above report was generated using voice recognition software. It may contain grammatical, syntax or spelling errors. Electronically signed by: Tuan Allen M.D. 10/19/2023 7:51 AM 10/20/23 07:17 10/21/23 06:32 Pending Results Patient Have Any Pending Studies at Discharge: Yes (blood culture - no growth to date) Discharge Instructions Given to Patient (Per Discharging Provider) You were treated for COVID-19 and pneumonia Finish the course of antiviral (molnupiravir) until it runs out Take dexamethasone (steroid) daily until it runs out, you can stop it early if/when you're no longer needing oxygen -this reduces lung inflammation from COVID Finish the course of antibiotics - azithromycin two more doses, cefuroxime 8 more doses We prescribed home oxygen - 2L per nasal cannula at rest and with activity. Use this until your oxygen levels improve. It could be 1-2 weeks. Its a good idea to wear a mask around others for a few more days You might want to take a probiotic or eat live culture yogurt daily for 2-4 weeks to prevent antibiotic associated diarrhea. These are available over the counter. It was a pleasure taking care of you in the hospital, Pily Hallman MD Total Time Total Time Spent Total Time Spent (In Minutes): I personally spent: 40 minutes today on clinical care activities including: reviewing chart notes and vital signs discussion with health care social worker arranging home oxygen examining and counseling the patient counseling the patient's family writing orders, prescriptions, discharge instructions documentation Coding Level of Care Code 00818 INP/OBS DISCH >30 MIN Diagnoses COVID-19 U07.1 Elevated troponin R79.89 Pneumonia J18.9 MOE (acute kidney injury) N17.9
[2023-10-21] MEDS ORDERED: GABAPENTIN 400 MG CAP PO SCH (21:00)
== END 2023-10-21 16:40 | disposition home or self-care (01) | DRG 871 ==
LOC: ED 01:25 → EDINP 03:37 → SUATTDRO 03:37 → 2N 05:29

== ENCOUNTER 2024-12-20 19:05 | Observation (INO) ==
[2024-12-20 19:47] LABS: Hematocrit (blood only) 45.0 % (42.0-52.0); Hemoglobin 15.5 g/dl (14.0-18.0); Immature Granulocytes # (auto) 0.02 K/uL (0.01-0.20); Immature Granulocytes % (auto) 0.2 %; Mean Corpuscular Hemoglobin 31.1 pg (25.0-34.0); Mean Corpuscular Volume 90.4 fL (80.0-100.0); Platelet Count 162 K/uL (130-400); RDW Standard Deviation 42.0 fL (36.4-46.3); Red Blood Count 4.98 M/uL (4.70-6.10); White Blood Count 8.62 K/ul (4.8-10.8)
[2024-12-20 20:08] LABS: Alanine Aminotransferase 26.0 U/L (7-52); Albumin Globulin Ratio 1.3 (0.9-2); Albumin Level 4.1 gm/dl (3.4-5.0); Alkaline Phosphatase 109.0 U/L (34-104); Anion Gap 8.0 (3-11); Bilirubin,Total 0.9 mg/dl (0.2-1.0); Blood Urea Nitrogen 29.0 mg/dl (6-23); Calcium 9.8 mg/dl (8.6-10.3); Carbon Dioxide 27.0 mmol/L (21-32); Chloride 105.0 mmol/L (98-107); Creatinine Clr Calc Pharmacy 41.3 ml/min; Globulin 3.2 gm/dl (2.5-4.0); Glucose 97.0 mg/dl (70-99(Fasting)); Lipase 28.0 U/L (11-82); Potassium 4.8 mmol/L (3.5-5.1); Sodium 140.0 mmol/L (136-145); Total Protein 7.3 gm/dl (6.0-8.3)
--- NOTE | 2024-12-20 21:06 | Emergency Department Note ---
Impression & Plan MOE (acute kidney injury), Back pain, Acute flank pain, Malfunction of artificial urethral sphincter ED Provider Note NAME: KATY DE JESUS AGE: 84 SEX: M : 1940 ARRIVES VIA: Ambulance INFORMANT: Patient, EMS, family ED PROVIDER(S): Jared Marie DO CHIEF COMPLAINT: urinary symptoms HPI: This is a 84-year-old male with the PMHx of prostate cancer s/p prostatectomy complicated by significant urinary incontinence s/p bladder sling and AUS, aortic stenosis, CVA, CESAR, hypertension, dyslipidemia and chronic back pain presenting to [facility] for further evaluation of right flank pain with urinary issues. Patient is accompanied by his and EMS who provide additional history. EMS stated the patient was hemodynamically in route. provides further history. Patient is concerned that his AUS is not working appropriately. He reports multiple days of urinary incontinence. He states that he has been wearing depends. He states that he woke up this morning dry and has not been able to urinate since. Patient now is reporting ongoing and worsening right sided back pain. He also reports right flank pain. Some radiation into his abdomen. has the device manual with her. This consist of switches within the scrotum that allow him to urinate. Patient states that the switch feels like it is malfunctioning and he is unable to press the button. They deny fever or chills. No cough or congestion. Denies chest pain or palpitations. No shortness of breath. They deny abdominal pain, nausea and vomiting. No recent changes in bowel movements. Patient denies recent changes in medications or OTC supplements. Patient offers no other complaints, today. ADDITIONAL HISTORY OBTAINED: Per HPI Chronic Medical/Social Conditions Affecting Care: Per HPI PAST MEDICAL HISTORY: See Below PAST SURGICAL HISTORY: See Below FAMILY HISTORY: See Below SOCIAL HISTORY: See Below HOME MEDICATIONS: See Below ALLERGIES: See Below VITALS: See Below PHYSICAL EXAMINATION: GENERAL: Sitting up in bed, alert, well appearing, well nourished, no distress, non-toxic EYE EXAM: normal conjunctiva. OROPHARYNX: no exudate, no erythema, lips, buccal mucosa, and tongue normal and mucous membranes are dry NECK: supple, no nuchal rigidity, no adenopathy, non-tender LUNGS: Clear to auscultation. Normal chest wall mechanics HEART: no murmurs, regular rate, regular rhythm ABDOMEN: abdomen soft, non-tender, no masses, no rebound or guarding. : rectangular shaped hard object with two buttons within the right hemiscrotum. There is no scrotal tenderness. No testicular tenderness. No significant erythema, swelling or abnormalities. BACK: Back is symmetrical on inspection and there is no deformity, no midline tenderness. There is R CVA tenderness. TTP over the R paraspinal tissue in lumbar spine. No midline TTP or step offs. 5/5 strength in b/l LEs that are neurovascularly intact. 2/4 patellar reflexes bilaterally. EHL strength 5/5 bilaterally. He ambulates in the ED. SKIN: no rashes and no bruising UPPER EXTREMITIES: upper extremities are grossly normal. LOWER EXTREMITIES: No pitting edema. NEURO EXAM: Normal sensorium, GCS 15, normal speech, no gross weakness of arms, no gross weakness of legs. MEDICAL DECISION MAKING: Differential diagnoses includes but not limited to AUS malfunction, appendicitis, bowel obstruction, diverticulitis, malignancy, nephrolithiasis, gastroenteritis, ACS, PNA, pancreatitis, hepatobiliary disease, complicated UTI In summary, this is an 84 year old male who presented with urinary symptoms with back/flank pain. Differential as above. Nursing notes and pertinent past medical records reviewed. Vital signs reviewed and the patient is mildly hypertensive but otherwise afebrile and HDS. History and presentation revealed complex urologic history. I was able to obtain records from [facility]. It appears the patient has a history of prostate cancer s/p prostatectomy with ongoing urinary incontinence. He eventually had an AUS placement in June of 2019. He follows with [facility] urology, previously Dr. Kathleen, now Dr. Leigh. Patient's device appears to be an AMS 800. Physical examination revealed as above. As a result of my initial evaluation, IV access was established and the patient was placed on CCRM. Therapeutics ordered include IVFR and analgesia. Will plan for CT abdomen/pelvis for further characterization of the patient's flank pain as well as ongoing urinary complaints. I question whether some of the patient's symptoms today could be coming from his back but he is neurovascularly intact and besides his possible urinary difficulties, I find no evidence of acute spinal cord pathology on exam. Diagnostics interpreted by me include EKG and cardiac monitoring as listed below: -Cardiac Monitoring: An order was placed for continuous cardiac monitoring. The monitor shows a rate of 60-80s with regular rhythm. -ECG: Atrial sensed ventricular paced rhythm at [address] segment changes to suggest STEMI. Intervals are otherwise within normal limits. Patient completed laboratory studies and imaging. Results independently interpreted by me are no leukocytosis or anemia. There is no significant electrolyte derangements. Does appear have an MOE from baseline. No changes in LFTs. The patient was managed with IV fluid resuscitation. Urinalysis does not appear infected. Patient is still having significant concerns with possible AUS malfunctioning. He is also weak and having ongoing right flank pain/back pain. I wonder if some of the symptoms could be related to spinal pathology. Do feel it would be pertinent to get an MRI as an inpatient. CT abdomen/pelvis was independently interpreted by me as negative for acute pathology to explain the patient's symptoms. Patient did not have evidence of acute cord compression based on my physical examination. I do fear the patient may have continued issues with his AUS as well as possible urinary retention and should be admitted to the hospital. Patient and family are very agreeable to this. Patient symptoms did improve with IV Valium. Patient may be able to continue this as an inpatient.. Ultimately, the decision was made to admit the patient for ongoing LUTS with concerns for malfunctioning AUS as well as ambulatory dysfunction in the setting of R flank/back pain. I discussed the case with the hospitalist service via telephone/[employer] and they are agreeable to admit the patient to their services by Dr. Goins and Tesha Tinoco. Based on the above, including the patient's age, coexisting illnesses, labs, imaging, and exam findings the decision to treat as an inpatient. I discussed the patient with the hospitalist team who recommended admission to their services. They received the medications, treatments, interventions indicated above and their condition remained stable. I discussed my findings with the patient and their family and they understand and agree with the treatment plan. All patient / family questions were answered to their satisfaction. Case discussed with consultants including Urology, Dr. Masterson. I did discuss the patient's AUS. I discussed my concerns if he would have further issues with voiding and urinary retention if we could place a Bravo catheter. He is agreeable to this. The AUS will need to be activated and he reports that he would use a small size catheter. He suggest possible 12 Romanian catheter, if needed. Consults/Care Managements Discussions: Per [facility] ER treatment provided: See above Procedures:none Critical Care: None The chart was completed utilizing [employer] voice recognition software. Grammatical errors, random word insertions, pronoun errors, and incomplete sentences are an occasional consequence of this system due to software limitations, ambient noise, and hardware issues. Any formal questions or concerns about the content, text, or information contained within the body of this dictation should be directly addressed to the physician for clarification. Past Med/Surg History Problem List (Updated 12/21/24 @ 02:18 by Jared Marie DO) Malfunction of artificial urethral sphincter (Acute) Acute flank pain (Acute) Back pain (Acute) MOE (acute kidney injury) (Acute) Renal insufficiency Urinary incontinence due to urethral sphincter incompetence Ambulatory dysfunction Right-sided back pain Obstructive sleep apnea Dyslipidemia Memory loss SHORT TERM MEMORY ISSUES, EVAL DONE 5 YR AGO - NO FINDINGS, NO WORSENING Of PROBLEM OVER LAST 5 YR Neoplasm of prostate, malignant HX OF 2004 Urinary incontinence Artificial urethral sphincter implanted recently - follows with urology with [facility] Cervical arthritis Neuropathy Hyperglycemia Aortic stenosis Heart block Syncope Acute CVA (cerebrovascular accident) (Acute) Aphasia (Acute) Medical History Sick sinus syndrome Sinus pause Syncope and collapse SNHL (sensorineural hearing loss) Osteoarthritis, shoulder Hypertension Kidney stones GERD (gastroesophageal reflux disease) Hearing deficit Cardiac murmur Surgical History History of reverse total replacement of left shoulder joint (~08/2019) History of surgery History of lithotripsy History of lymph node biopsy Status post bilateral foot surgery History of carpal tunnel surgery of right wrist Hx of vasectomy History of colonoscopy (~2007) History of bladder surgery History of prostatectomy History of wisdom tooth extraction History of tonsillectomy and adenoidectomy History of bilateral cataract extraction Family History Mother , 83yo Diabetes H/O angioplasty Stroke Father , 79yo Cirrhosis of liver Lung cancer Alcoholic Sister Stroke Son Schizophrenia Bipolar disorder PTSD (post-traumatic stress disorder) Daughter Not currently working due to disabled status As a result of an MVA Other No family history of adverse response to anesthesia Denies family history of Clotting disorder Social History Smoking Status: Never smoker Second Hand Exposure: Yes (father smoked); Do You Dip or Chew Tobacco: No; Hx Alcohol Use: No Hx Substance Use: No Preferred Language: Albanian Communication Ability: Effective Communication Ability Comment: stroke Visual Impairment: No Limitations Hearing Ability: Hard of Hearing 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: No Beliefs That Will Affect Care: None marital status: Current Living Situation: Spouse Current Living Situation Comment: and daughter 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 [employer] Other Information That Helps Us Care for You: No Feels Safe at Home: Yes Safety Concerns: Feels Safe At This Time Diet: other caffeine: Yes (Irregular use;) during the past year weight has: decreased > 10 lbs Assistive Devices: Glasses and Hospital Bed Allergies Allergies Allergy/AdvReac Type Severity Reaction Status Date / Time No Known Drug Allergies Allergy Unknown Verified 07/14/24 13:22 Home Meds Home Medications Medication Instructions Recorded Confirmed cholecalciferol (vitamin D3) 50 2,000 unit PO QAM 04/02/18 12/21/24 mcg (2,000 unit) capsule (Vitamin D3) cyanocobalamin (vitamin B-12) 1,000 mcg PO QAM 04/02/18 12/21/24 1,000 mcg tablet (Vitamin B-12) clotrimazole-betamethasone 1 1 appln topical BID PRN 04/01/19 12/21/24 %-0.05 % topical cream rash/itching multivit with minerals-folic 1 tab PO QAM 04/01/19 12/21/24 acid-lycopene 0.4 mg-600 mcg tablet (One Daily For Men) ibuprofen 200 mg capsule 200 - 600 mg PO UD PRN Pain 04/29/19 12/21/24 acetaminophen 500 mg tablet 500 mg PO Q6H PRN PAIN/FEVER 10/19/23 12/21/24 cetirizine 10 mg tablet (Zyrtec) 10 mg PO DAILY 10/19/23 12/21/24 mometasone 50 mcg/actuation nasal 2 spray intranasal HS PRN Allergy 01/08/24 12/21/24 spray Symptoms amoxicillin 500 mg tablet 2,000 mg PO ONCE PRN APPOINTMENTS 12/21/24 12/21/24 Previous Rx's Medication Instructions Recorded CPAP Machine #1 ea 04/12/21 indapamide 1.25 mg tablet 1.25 mg PO QAM #90 tabs 12/18/23 mirabegron 50 mg tablet,extended 50 mg PO HS #90 tabs 01/14/24 release 24 hr (Myrbetriq) clopidogrel 75 mg tablet 75 mg PO QAM #90 tabs 04/17/24 losartan 100 mg tablet 100 mg PO DAILY #90 tabs 06/10/24 amlodipine 5 mg tablet 5 mg PO DAILY #100 tabs 07/08/24 atorvastatin 80 mg tablet 80 mg PO DAILY #100 tabs 07/08/24 duloxetine 30 mg capsule,delayed 30 mg PO DAILY 90 days #90 caps 12/16/24 release gabapentin 400 mg capsule 400 mg PO HS 90 days #90 caps 12/16/24 Results & Data (ED) Vital Signs Vital Signs - 24 hr 12/20/24 19:33 12/20/24 19:42 12/20/24 20:00 Pulse Rate 66 66 Pulse Rate from SpO2 Sensor Respiratory Rate 16 14 Respiratory Effort / Characteristics Non-Labored Spontaneous Respiratory Depth Normal Respiratory Pattern Regular Blood Pressure 156/89 H 172/88 H Blood Pressure Mean 111 116 Blood Pressure Position Semi-fowlers Pulse Oximetry 96 96 96 Oxygen Delivery Method Room Air Room Air Sepsis Recent Fever Within 48 Hours No Sepsis New/Unexplained Change in Mental Status No Sepsis Action Taken by Nursing No Action Required 12/20/24 21:01 12/20/24 21:03 12/20/24 21:12 Pulse Rate 76 69 67 Pulse Rate from SpO2 Sensor 67 Respiratory Rate 18 18 16 Respiratory Effort / Characteristics Respiratory Depth Respiratory Pattern Blood Pressure 186/95 H Blood Pressure Mean 113 Blood Pressure Position Pulse Oximetry 96 97 Oxygen Delivery Method Sepsis Recent Fever Within 48 Hours Sepsis New/Unexplained Change in Mental Status Sepsis Action Taken by Nursing 12/20/24 21:30 12/20/24 21:31 12/20/24 21:31 Pulse Rate 82 Pulse Rate from SpO2 Sensor Respiratory Rate 24 Respiratory Effort / Characteristics Respiratory Depth Respiratory Pattern Blood Pressure 142/68 H 142/68 H Blood Pressure Mean 104 104 Blood Pressure Position Pulse Oximetry Oxygen Delivery Method Sepsis Recent Fever Within 48 Hours Sepsis New/Unexplained Change in Mental Status Sepsis Action Taken by Nursing 12/20/24 21:31 12/20/24 21:31 12/20/24 21:31 Pulse Rate Pulse Rate from SpO2 Sensor Respiratory Rate Respiratory Effort / Characteristics Respiratory Depth Respiratory Pattern Blood Pressure 142/68 H 142/68 H 142/68 H Blood Pressure Mean 104 104 104 Blood Pressure Position Pulse Oximetry Oxygen Delivery Method Sepsis Recent Fever Within 48 Hours Sepsis New/Unexplained Change in Mental Status Sepsis Action Taken by Nursing 12/20/24 22:00 12/20/24 22:30 12/20/24 23:00 Pulse Rate 75 78 78 Pulse Rate from SpO2 Sensor Respiratory Rate 20 18 20 Respiratory Effort / Characteristics Respiratory Depth Respiratory Pattern Blood Pressure 157/77 H 134/107 H Blood Pressure Mean 103 116 Blood Pressure Position Pulse Oximetry 93 95 95 Oxygen Delivery Method Sepsis Recent Fever Within 48 Hours Sepsis New/Unexplained Change in Mental Status Sepsis Action Taken by Nursing 12/20/24 23:30 12/21/24 00:00 Pulse Rate 84 70 Pulse Rate from SpO2 Sensor 71 Respiratory Rate 22 16 Respiratory Effort / Characteristics Respiratory Depth Respiratory Pattern Blood Pressure 134/107 H 164/86 H Blood Pressure Mean 116 112 Blood Pressure Position Pulse Oximetry 94 95 Oxygen Delivery Method Sepsis Recent Fever Within 48 Hours Sepsis New/Unexplained Change in Mental Status Sepsis Action Taken by Nursing Laboratory Data 12/20/24 19:25 12/20/24 19:25 Lab Results 12/20/24 12/20/24 12/20/24 Range/Units 19:25 21:06 Unknown WBC 8.62 (4.8-10.8) K/ul RBC 4.98 (4.70-6.10) M/uL Hgb 15.5 (14.0-18.0) g/dl Hct 45.0 (42.0-52.0) % MCV 90.4 (80.0-100.0) fL MCH 31.1 (25.0-34.0) pg MCHC 34.4 (32.0-36.0) g/dL RDW Std Deviation 42.0 (36.4-46.3) fL RDW Coeff of Jennifer 12.8 (11.5-14.5) % Plt Count 162 (130-400) K/uL MPV 9.8 (9.4-12.4) fL Immature Gran % (Auto) 0.2 % Neut % (Auto) 69.8 % Lymph % (Auto) 19.3 % Archer % (Auto) 8.2 % Eos % (Auto) 2.4 % Baso % (Auto) 0.1 % Neut # (Auto) 6.01 (1.40-6.50) K/uL Lymph # (Auto) 1.66 (1.20-3.40) K/uL Archer # (Auto) 0.71 H (0.11-0.59) K/uL Eos # (Auto) 0.21 (0.00-0.50) K/uL Baso # (Auto) 0.01 (0.00-0.20) K/uL Immature Gran # (Auto) 0.02 (0.01-0.20) K/uL Sodium 140 (136-145) mmol/L Potassium 4.8 (3.5-5.1) mmol/L Chloride 105 (98-107) mmol/L Carbon Dioxide 27 (21-32) mmol/L Anion Gap 8 (3-11) BUN 29 H (6-23) mg/dl Creatinine 1.61 H (0.6-1.4) mg/dl Est Cr Clr Drug Dosing 41.3 ml/min eGFR 42.43 BUN/Creatinine Ratio 18.0 (10-20) Glucose 97 (70-99(Fasting)) mg/dl Lactate 1.0 (0.4-2.0) mmol/L Calcium 9.8 (8.6-10.3) mg/dl Total Bilirubin 0.9 (0.2-1.0) mg/dl AST 30 (13-39) U/L ALT 26 (7-52) U/L Alkaline Phosphatase 109 H (34-104) U/L Total Protein 7.3 (6.0-8.3) gm/dl Albumin 4.1 (3.4-5.0) gm/dl Globulin 3.2 (2.5-4.0) gm/dl Albumin/Globulin Ratio 1.3 (0.9-2) Lipase 28 (11-82) U/L Urine Color Yellow Urine Appearance Clear (Clear) Urine pH 6.0 (4.5-7.5) Ur Specific [place] 1.011 (1.000-1.030) Urine Protein Negative (Negative) Urine Glucose (UA) Negative (Negative) Urine Ketones Trace H (Negative) Urine Blood Negative (Negative) Urine Nitrite Negative (Negative) Urine Bilirubin Negative (Negative) Urine Urobilinogen Negative (Negative) Ur Leukocyte Esterase Negative (Negative) Urine Comment Administered Medications Lactated Ringer's (Lr) 1,000 mls @ 80 mls/hr IV .[id number] Stop: 12/21/24 13:29 Last Admin: 12/21/24 03:20 Dose: 80 mls/hr Documented By: LRA Morphine Sulfate (Morphine Sulfate 4 Mg/Ml 1 Ml Carp\Vial) 4 mg IV Q6H PRN PRN Reason: Severe Pain (Scale 7, 8, 9,10) Stop: 01/04/25 02:46 Last Admin: 12/21/24 03:20 Dose: 4 mg Documented By: LRA Discontinued Medications Diazepam (Diazepam Inj 5 Mg/Ml 2 Ml Carp) 2.5 mg IV NOW ONE Stop: 12/20/24 23:00 Last Admin: 12/20/24 23:12 Dose: 2.5 mg Documented By: abl Gabapentin (Gabapentin 400 Mg Cap) 400 mg PO ONCE ONE Stop: 12/20/24 23:01 Last Admin: 12/20/24 23:34 Dose: 400 mg Documented By: abl Parenteral Electrolytes (Plasma-Lyte A Ph 7.4) 1,000 mls @ 999 mls/hr IV .Q1H1M ONE Stop: 12/20/24 22:33 Last Infusion: 12/20/24 22:48 Dose: Infused Documented By: abl Admin: 12/20/24 21:36 Dose: 999 mls/hr Documented By: ABEL Ioversol (Optiray 320 100ml) 90 ml IV ONCE ONE Stop: 12/20/24 21:22 Last Admin: 12/20/24 21:21 Dose: 90 ml Documented By: EDK Imaging Data Radiologist's Impression: Abdomen/Pelvis CT 12/20/24 19:14 Exam(s): CT ABDOMEN + PELVIS With Contrast IV Amt: 90 ml optiray 320 EXAM: CT Abdomen and Pelvis With Intravenous Contrast CLINICAL HISTORY: Reason for exam: urinary retention, artifical urethral sphincter. TECHNIQUE: Axial computed tomography images of the abdomen and pelvis with intravenous contrast. CTDI is 27.9 mGy and DLP is 1468 mGy-cm. Automated exposure control was utilized for the study. A dose lowering technique was utilized adhering to the principles of ALARA. CONTRAST: Patient received 90 ml optiray 320 of IV contrast COMPARISON: 04/01/2019 FINDINGS: Lung bases: Scattered fine linear scarring or atelectasis in the lung bases. ABDOMEN: Liver: Unremarkable. No mass. Gallbladder and bile ducts: Unremarkable. No calcified stones. No ductal dilation. Pancreas: Unremarkable. No mass. No ductal dilation. Spleen: Unremarkable. No splenomegaly. Adrenals: Unremarkable. No mass. Kidneys and ureters: 3 mm nonobstructive caliceal calculus in the lower pole of the right kidney. No hydronephrosis or ureterolithiasis is seen. 5.5 cm simple cysts in the lower pole of the right kidney. No follow-up is required. Stomach and bowel: Unremarkable. No obstruction. No mucosal thickening. PELVIS: Appendix: The appendix is normal. Bowel loops are nondilated. No acute inflammatory changes are seen involving the bowel. Bladder: See below. Reproductive: There are multiple surgical clips in the previous location of the prostate gland. There is a prosthetic valve in the posterior penile urethra. The urinary bladder is partially distended measuring 8.5 x 6 x 7.4 cm 197.8 ml. ABDOMEN and PELVIS: Intraperitoneal space: Unremarkable. No free air. No significant fluid collection. Bones/joints: Urqt-hz-qafyyboe multilevel degenerative changes throughout the spine. No acute fracture or subluxation is seen. There are xxxt-be-kzpkobvj osteoarthritic changes of the left hip. Soft tissues: Unremarkable. Vasculature: The abdominal aorta is heavily calcified but nondilated. There is no aneurysm or dissection. Lymph nodes: Unremarkable. No enlarged lymph nodes. IMPRESSION: 1. There are multiple surgical clips in the previous location of the prostate gland. There is a prosthetic valve in the posterior penile urethra. The urinary bladder is partially distended measuring 8.5 x 6 x 7.4 cm 197.8 ml. 2. The appendix is normal. Bowel loops are nondilated. No acute inflammatory changes are seen involving the bowel. Electronically signed by: Ketan Goins MD 12/20/24 23:30 PM Discharge Plan Visit Data Chief Complaint: Urinary Symptoms Stated Complaint: R flank pain, no urination since this am, hx stent ED Provider: Jared Marie Discharge Problem: MOE (acute kidney injury), Back pain, Acute flank pain, Malfunction of artificial urethral sphincter Patient Disposition: Admitted As Inpatient Condition: Fair Discharge Instructions Interventions: ED Discharge Assessment Last Done: 12/21/24 02:15
[2024-12-20] MEDS: OPTIRAY 320 100ml IV ONE (21:21)
[2024-12-20] MEDS: PLASMA-LYTE A 1,000 ML IV ONE (21:36)
[2024-12-20 21:57] LABS: Appearance Urine Clear (Clear); Glucose Urine UA Negative (Negative)
--- NOTE | 2024-12-20 23:32 | CT Scan Report ---
Exam(s): CT ABDOMEN + PELVIS With Contrast IV Amt: 90 ml optiray 320 EXAM: CT Abdomen and Pelvis With Intravenous Contrast CLINICAL HISTORY: Reason for exam: urinary retention, artifical urethral sphincter. TECHNIQUE: Axial computed tomography images of the abdomen and pelvis with intravenous contrast. CTDI is 27.9 mGy and DLP is 1468 mGy-cm. Automated exposure control was utilized for the study. A dose lowering technique was utilized adhering to the principles of ALARA. CONTRAST: Patient received 90 ml optiray 320 of IV contrast COMPARISON: 04/01/2019 FINDINGS: Lung bases: Scattered fine linear scarring or atelectasis in the lung bases. ABDOMEN: Liver: Unremarkable. No mass. Gallbladder and bile ducts: Unremarkable. No calcified stones. No ductal dilation. Pancreas: Unremarkable. No mass. No ductal dilation. Spleen: Unremarkable. No splenomegaly. Adrenals: Unremarkable. No mass. Kidneys and ureters: 3 mm nonobstructive caliceal calculus in the lower pole of the right kidney. No hydronephrosis or ureterolithiasis is seen. 5.5 cm simple cysts in the lower pole of the right kidney. No follow-up is required. Stomach and bowel: Unremarkable. No obstruction. No mucosal thickening. PELVIS: Appendix: The appendix is normal. Bowel loops are nondilated. No acute inflammatory changes are seen involving the bowel. Bladder: See below. Reproductive: There are multiple surgical clips in the previous location of the prostate gland. There is a prosthetic valve in the posterior penile urethra. The urinary bladder is partially distended measuring 8.5 x 6 x 7.4 cm 197.8 ml. ABDOMEN and PELVIS: Intraperitoneal space: Unremarkable. No free air. No significant fluid collection. Bones/joints: Gwui-bd-ibljmpic multilevel degenerative changes throughout the spine. No acute fracture or subluxation is seen. There are goda-wk-khxektzy osteoarthritic changes of the left hip. Soft tissues: Unremarkable. Vasculature: The abdominal aorta is heavily calcified but nondilated. There is no aneurysm or dissection. Lymph nodes: Unremarkable. No enlarged lymph nodes. IMPRESSION: 1. There are multiple surgical clips in the previous location of the prostate gland. There is a prosthetic valve in the posterior penile urethra. The urinary bladder is partially distended measuring 8.5 x 6 x 7.4 cm 197.8 ml. 2. The appendix is normal. Bowel loops are nondilated. No acute inflammatory changes are seen involving the bowel. Electronically signed by: Ketan Goins MD 12/20/24 23:30 PM
[2024-12-20] MEDS: GABAPENTIN 400 MG CAP PO ONE (23:34)
--- NOTE | 2024-12-21 00:45 | History & Physical Report ---
Date of Service December 21, 2024 Assessment & Plan (1) Right-sided back pain: (2) Ambulatory dysfunction: (3) Urinary incontinence due to urethral sphincter incompetence: (4) Renal insufficiency: Plan Patient is an 84-year-old male with a past medical history of sick sinus syndrom e s/p pacer, GERD, HTN, CESAR, HLD, CVA ( with residual dysarthria), prostate cancer s/p prostatectomy with residual incontinence and patient is s/p AUS 06/2019 with [facility] urologist Dr. Holguin. Patient presented via EMS after an episode this evening where he had severe left right back pain which radiated down his right leg. Pain has been present for 2 weeks however was worse this evening and he was unable to ambulate due to the pain. Patient has also had greater than 1 week of urinary incontinence and believes his AUS is not working properly. He is being admitted for further urology eval and evaluation of back pain. #right back pain with radiation/ambulatory dysfunction - AP CT without any significant acute changes. Laboratories WNL. Given concerning symptoms, lumbar spine MRI orderedpatient does have pacemaker Pain control with Tylenol as needed, morphine 2/4 mg for breakthrough pain Had Valium 2.5 mg IV in ED which resolved pain, continue 2mg PO prn for muscle spasms - lidoderm patch daily - PT/OT ordered #urinary incontinence history of AUS and bladder sling. Question if AUS malfunction or from spinal pathology. UA WNL, renal function mildly worsened from baseline likely 2/2 poor po intake. Spinal workup as above Urology consulted Will keep n.p.o. for potential surgical management - hold plavix - hold indapamide with Cr increase, clinically dry, and incontinence IVF with LR 80 mL/hour x 1 L Bladder scan as needed, if need to place catheter use 12 Latvian and follow patient's instruction card on how to complete with AUS - continue mirabegron - trend BMP #sick sinus syndromes/p pacer. #HTNcontinue amlodipine and losartan, holding Lozol #Hx CVAApril 2022, with residual mild aphasia - continue statin, holding Plavix with possible surgical management #OSACPAP at bedtime VTE ppx: SCDs, low risk and possible surgical management Dispo: med surg, obs Admission and Anticipated Discharge Date Admission Date: 12/21/24 History of Present Illness Chief Complaint: urinary sx Primary Care Provider: Checo Maguire DO Patient is an 84-year-old male with a past medical history of sick sinus s yndrome s/p pacer, GERD, HTN, CESAR, HLD, CVA ( with residual dysarthria), prostate cancer s/p prostatectomy with residual incontinence and patient is s/p AUS 06/2019 with [facility] urologist Dr. Holguin. Patient presented via EMS after an episode this evening where he had severe left right back pain which radiated down his right leg. Pain has been present for 2 weeks however was worse this evening and he was unable to ambulate due to the pain. Patient has also had greater than 1 week of urinary incontinence and believes his AUS is not working properly. He is being admitted for further urology eval and evaluation of back pain. Patient seen at bedside with his and [id number] present. He endorses the above. He stated that the incontinence has been constant for the past week and that his button which is located in his scrotum to work the AUS is not working. Patient has dysarthria and is slow to respond to questioning. stated that they have been following with urology who noticed his PSA was slowly increasing and they were questioning starting radiation therapy however did not know where the cancer was located at. They switched to a urologist, Dr. Leigh, who wanted to hold off on radiation. They were told to look out for any leg pain as this could be signs of metastasis to bone so they are concerned about his pain this evening. pain is currently well-controlled as patient is laying in bed side, only occurs with ambulation. He denies any numbness or tingling. Patient also endorses poor p.o. intake for the past week as he did not want to keep having episodes of incontinence. He also has a history of bladder sling and pacemaker. He uses CPAP at night for sleep apnea and with naps. He is due for his evening medications. He wishes to be full code. Discussion with ER provider who spoke with on-call urologist, caution with catheterization with history of AUS. If patient continues retaining urine (did have 200 mL postvoid bladder scan in ED) will need to use 12 Latvian catheter. Patient does have a card at bedside which states how to use the AUS. Had him place this in his green plastic coat pocket and to go with him to his room if nursing needs it for assistance. Previous medical records from [facility] urology reviewed. AUS placed 07/08/[address] Holguin model number is [id number]. AUS was placed s/p R RP for prostate cancer which he was post prostatectomy incontinence and bladder sling did not fully relieve this. No complications of procedure noted Allergies Allergy/AdvReac Type Severity Reaction Status Date / Time No Known Drug Allergies Allergy Unknown Verified 07/14/24 13:22 Home Medications Medication Instructions Recorded Confirmed Type cholecalciferol (vitamin D3) 50 2,000 unit PO QAM 04/02/18 12/21/24 History mcg (2,000 unit) capsule (Vitamin D3) cyanocobalamin (vitamin B-12) 1,000 mcg PO QAM 04/02/18 12/21/24 History 1,000 mcg tablet (Vitamin B-12) clotrimazole-betamethasone 1 1 appln topical BID PRN 04/01/19 12/21/24 History %-0.05 % topical cream rash/itching multivit with minerals-folic 1 tab PO QAM 04/01/19 12/21/24 History acid-lycopene 0.4 mg-600 mcg tablet (One Daily For Men) ibuprofen 200 mg capsule 200 - 600 mg PO UD PRN Pain 04/29/19 12/21/24 History CPAP Machine #1 ea 04/12/21 12/21/24 Rx acetaminophen 500 mg tablet 500 mg PO Q6H PRN PAIN/FEVER 10/19/23 12/21/24 History cetirizine 10 mg tablet (Zyrtec) 10 mg PO DAILY 10/19/23 12/21/24 History indapamide 1.25 mg tablet 1.25 mg PO QAM #90 tabs 12/18/23 12/21/24 Rx mometasone 50 mcg/actuation nasal 2 spray intranasal HS PRN Allergy 01/08/24 12/21/24 History spray Symptoms mirabegron 50 mg tablet,extended 50 mg PO HS #90 tabs 01/14/24 12/21/24 Rx release 24 hr (Myrbetriq) clopidogrel 75 mg tablet 75 mg PO QAM #90 tabs 04/17/24 12/21/24 Rx losartan 100 mg tablet 100 mg PO DAILY #90 tabs 06/10/24 12/21/24 Rx amlodipine 5 mg tablet 5 mg PO DAILY #100 tabs 07/08/24 12/21/24 Rx atorvastatin 80 mg tablet 80 mg PO DAILY #100 tabs 07/08/24 12/21/24 Rx duloxetine 30 mg capsule,delayed 30 mg PO DAILY 90 days #90 caps 12/16/24 12/21/24 Rx release gabapentin 400 mg capsule 400 mg PO HS 90 days #90 caps 12/16/24 12/21/24 Rx amoxicillin 500 mg tablet 2,000 mg PO ONCE PRN APPOINTMENTS 12/21/24 12/21/24 History Past Med/Surg History Problem List (Updated 12/21/24 @ 02:18 by Jared Marie DO) Malfunction of artificial urethral sphincter (Acute) Acute flank pain (Acute) Back pain (Acute) MOE (acute kidney injury) (Acute) Renal insufficiency Urinary incontinence due to urethral sphincter incompetence Ambulatory dysfunction Right-sided back pain Obstructive sleep apnea Dyslipidemia Memory loss SHORT TERM MEMORY ISSUES, EVAL DONE 5 YR AGO - NO FINDINGS, NO WORSENING Of PROBLEM OVER LAST 5 YR Neoplasm of prostate, malignant HX OF 2004 Urinary incontinence Artificial urethral sphincter implanted recently - follows with urology with [facility] Cervical arthritis Neuropathy Hyperglycemia Aortic stenosis Heart block Syncope Acute CVA (cerebrovascular accident) (Acute) Aphasia (Acute) Medical History Sick sinus syndrome Sinus pause Syncope and collapse SNHL (sensorineural hearing loss) Osteoarthritis, shoulder Hypertension Kidney stones GERD (gastroesophageal reflux disease) Hearing deficit Cardiac murmur Surgical History History of reverse total replacement of left shoulder joint (~08/2019) History of surgery History of lithotripsy History of lymph node biopsy Status post bilateral foot surgery History of carpal tunnel surgery of right wrist Hx of vasectomy History of colonoscopy (~2007) History of bladder surgery History of prostatectomy History of wisdom tooth extraction History of tonsillectomy and adenoidectomy History of bilateral cataract extraction Family History Mother , 83yo Diabetes H/O angioplasty Stroke Father , 79yo Cirrhosis of liver Lung cancer Alcoholic Sister Stroke Son Schizophrenia Bipolar disorder PTSD (post-traumatic stress disorder) Daughter Not currently working due to disabled status As a result of an MVA Other No family history of adverse response to anesthesia Denies family history of Clotting disorder Social History Smoking Status: Never smoker Second Hand Exposure: Yes (father smoked); Do You Dip or Chew Tobacco: No; Hx Alcohol Use: Yes Alcohol type: beer and hard liquor Hx Substance Use: No Preferred Language: Greenlandic Communication Ability: Effective Communication Ability Comment: stroke Visual Impairment: No Limitations Hearing Ability: Hard of Hearing Physician General Practice Required: No Beliefs That Will Affect Care: None marital status: Current Living Situation: Spouse and Family Current Living Situation Comment: and daughter 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 Non-toxic appearing. HEENT- EOMI, mucous membranes dry. Hearing grossly intact. Heart-normal S1 and S2. No murmurs, rubs or gallops. Lungs-clear bilaterally, no respiratory distress, no accessory muscle use. Abdomen-normal bowel sounds and soft. No ascites noted. Tender to palpation of RLQ and R flank. Extremities- no clubbing, cyanosis, or edema. Rheumatologic-normal range of motion. Psychiatric-normal affect. Neurologic: dysarthria (baseline) Results & Data Results & Data Vital Signs (Past 12 Hours) Vital Signs Pulse Resp BP Pulse Ox O2 Del Method 12/21/24 00:00 70 16 164/86 H 95 12/20/24 23:30 84 22 134/107 H 94 12/20/24 23:00 78 20 134/107 H 95 12/20/24 22:30 78 18 95 12/20/24 22:00 75 20 157/77 H 93 12/20/24 21:31 142/68 H 12/20/24 21:31 142/68 H 12/20/24 21:31 142/68 H 12/20/24 21:31 142/68 H 12/20/24 21:31 142/68 H 12/20/24 21:30 82 24 12/20/24 21:12 67 16 97 12/20/24 21:03 69 18 12/20/24 21:01 76 18 186/95 H 96 12/20/24 20:00 66 14 172/88 H 96 12/20/24 19:42 96 Room Air 12/20/24 19:33 66 16 156/89 H 96 Room Air Laboratory Results Reviewed CBC, CMP, lactate, lipase, UA Diagnostic Findings reviewed AP CT Ordered lumbar spine MRI Medications Administered EDValium 2.5 mg IV, gabapentin 400 mg p.o., Plasma-Lyte 1 L bolus ECG Additional Comments: ordered Code Status & VTE Plan Code Status full code VTE Prophylaxis Plan VTE Prophylaxis will be ordered: Yes Supervising Physician Co-Signing Physician Notes Patient seen and examined, chart reviewed, case discussed with TAHIR Washburn and I agree with the assessment and plan as above PG Care Time/CCT Total # of Minutes Spent Total Time Spent with Patient: Total time spent is greater than 50% in coordination of care (as documented) at patient's floor/unit and/or counseling patient: Coding Level of Care Code 61460 INT INP/OBS CARE 3/75MIN Diagnoses Right-sided back pain M54.9 Ambulatory dysfunction R26.2 Urinary incontinence due to urethral sphincter incompetence N36.42; R32 Renal insufficiency N28.9
[2024-12-21] MEDS ORDERED: DOCUSATE SODIUM 100 MG CAP PO PRN (02:47)
[2024-12-21] MEDS ORDERED: ONDANSETRON INJ 2 MG/ML 2 ML VIAL IV PRN (02:47)
[2024-12-21] MEDS ORDERED: MELATONIN 3 MG TAB PO PRN (02:47)
[2024-12-21] MEDS ORDERED: POLYETHYLENE (MIRALAX) 17 GM PACK PO PRN (02:47)
[2024-12-21] MEDS ORDERED: MoRPHine SULFATE 4 MG/ML 1 ML CARP\\VIAL IV PRN (02:59)
[2024-12-21] MEDS ORDERED: FLUTICASONE PROPIONATE NA SPR 16 GM BTL PRN (03:00)
[2024-12-21] MEDS: LACTATED RINGER'S 1,000 ML IV SCH (03:20)
[2024-12-21] MEDS: MoRPHine SULFATE 4 MG/ML 1 ML CARP\\VIAL IV PRN (03:20)
[2024-12-21] MEDS: VIBEGRON 75 MG TAB PO SCH (05:31)
[2024-12-21] MEDS: ATORVASTATIN 40 MG TAB PO SCH (05:31)
[2024-12-21 08:29] VITALS: BP 153/87; PULSE 69; RESP 16; TEMP 97.3; O2SAT 97
[2024-12-21] MEDS: LOSARTAN POTASSIUM 50 MG TAB PO SCH (08:59)
[2024-12-21] MEDS: LIDOCAINE 5% 1 PATCH TD SCH (08:59)
[2024-12-21] MEDS: ACETAMINOPHEN 325 MG TAB PO PRN (10:34)
--- NOTE | 2024-12-21 13:03 | Urology Consultation ---
<Statement entered by Prasanth Masterson MD - 12/21/24 14:17> Chart reviewed plan reviewed and agree as written. Date of Consultation December 21, 2024 Assessment & Plan (1) Malfunction of artificial urethral sphincter: (2) Incontinence: (3) Back pain: Plan 84yo male admitted with back pain and urinary retention/incontinence with concern that AUS is not working properly Patient is afebrile and hemodynamically stable Labs show leukocytosis and creatinine 1.61 Urinalysis without signs of infection or blood CT abdomen pelvis showed no hydronephrosis, partial distention of the urinary bladder, and a prostatic valve in the posterior penile urethra. Patient is feeling better today, reports overall improvement in back pain Has been voiding and feels he is emptying the bladder, does have some leakage No acute intervention warranted Can monitor bladder scans/PVRs as needed. Would ideally avoid catheterization if possible. If need to place catheter, would use 12 Armenian and follow patient's instruction card on how to complete with AUS. Recommend follow-up with his reconstructive urologist at [facility] (Dr. Holguin) - It appears a new referral has been placed. Can follow up with our service as scheduled. Urology will sign-off, please recall as needed. History of Present Illness Attending Physician: Daniel Sykes MD History of Present Illness 84-year-old male with a hx of prostate cancer s/p prostatectomy with residual incontinence and patient is s/p AUS 06/[address] [facility] u[address]ist [address]. Holguin who presented to the ED with severe right back pain which radiated down his right leg and urinary incontinence. Patient reported that he was unable to ambulate due to the pain. Patient also reported 1 week of urinary incontinence and believes his AUS was not working properly. Patient was admitted for evaluation of back pain and urology evaluation. CT abdomen pelvis- 1. There are multiple surgical clips in the previous location of the prostate gland. There is a prosthetic valve in the posterior penile urethra. The urinary bladder is partially distended measuring 8.5 x 6 x 7.4 cm 197.8 ml. 2. The appendix is normal. Bowel loops are nondilated. No acute inflammatory changes are seen involving the bowel. Patient was seen at bedside today. He is awake and resting in bed on arrival. No acute distress. Reports resolution of back pain. Feeling well and eager to go home. He has been voiding and able to empty the bladder. Clear yellow urine in urinal. He does feel his AUS pump is not functioning properly. Has had some urinary leakage. Allergies Allergy/AdvReac Type Severity Reaction Status Date / Time No Known Drug Allergies Allergy Unknown Verified 07/14/24 13:22 Home Medications Medication Instructions Recorded Confirmed Type cholecalciferol (vitamin D3) 50 2,000 unit PO QAM 04/02/18 12/21/24 History mcg (2,000 unit) capsule (Vitamin D3) cyanocobalamin (vitamin B-12) 1,000 mcg PO QAM 04/02/18 12/21/24 History 1,000 mcg tablet (Vitamin B-12) clotrimazole-betamethasone 1 1 appln topical BID PRN 04/01/19 12/21/24 History %-0.05 % topical cream rash/itching multivit with minerals-folic 1 tab PO QAM 04/01/19 12/21/24 History acid-lycopene 0.4 mg-600 mcg tablet (One Daily For Men) ibuprofen 200 mg capsule 200 - 600 mg PO UD PRN Pain 04/29/19 12/21/24 History CPAP Machine #1 ea 04/12/21 12/21/24 Rx acetaminophen 500 mg tablet 500 mg PO Q6H PRN PAIN/FEVER 10/19/23 12/21/24 History cetirizine 10 mg tablet (Zyrtec) 10 mg PO DAILY 10/19/23 12/21/24 History indapamide 1.25 mg tablet 1.25 mg PO QAM #90 tabs 12/18/23 12/21/24 Rx mometasone 50 mcg/actuation nasal 2 spray intranasal HS PRN Allergy 01/08/24 12/21/24 History spray Symptoms mirabegron 50 mg tablet,extended 50 mg PO HS #90 tabs 01/14/24 12/21/24 Rx release 24 hr (Myrbetriq) clopidogrel 75 mg tablet 75 mg PO QAM #90 tabs 04/17/24 12/21/24 Rx losartan 100 mg tablet 100 mg PO DAILY #90 tabs 06/10/24 12/21/24 Rx amlodipine 5 mg tablet 5 mg PO DAILY #100 tabs 07/08/24 12/21/24 Rx atorvastatin 80 mg tablet 80 mg PO DAILY #100 tabs 07/08/24 12/21/24 Rx duloxetine 30 mg capsule,delayed 30 mg PO DAILY 90 days #90 caps 12/16/24 12/21/24 Rx release gabapentin 400 mg capsule 400 mg PO HS 90 days #90 caps 12/16/24 12/21/24 Rx amoxicillin 500 mg tablet 2,000 mg PO ONCE PRN APPOINTMENTS 12/21/24 12/21/24 History Patient History Medical History Sick sinus syndrome Sinus pause Syncope and collapse SNHL (sensorineural hearing loss) Osteoarthritis, shoulder Hypertension Kidney stones GERD (gastroesophageal reflux disease) Hearing deficit Cardiac murmur Surgical History History of reverse total replacement of left shoulder joint (~08/2019) History of surgery History of lithotripsy History of lymph node biopsy Status post bilateral foot surgery History of carpal tunnel surgery of right wrist Hx of vasectomy History of colonoscopy (~2007) History of bladder surgery History of prostatectomy History of wisdom tooth extraction History of tonsillectomy and adenoidectomy History of bilateral cataract extraction Family History Mother , 83yo Diabetes H/O angioplasty Stroke Father , 79yo Cirrhosis of liver Lung cancer Alcoholic Sister Stroke Son Schizophrenia Bipolar disorder PTSD (post-traumatic stress disorder) Daughter Not currently working due to disabled status As a result of an MVA Other No family history of adverse response to anesthesia Denies family history of Clotting disorder Social History Smoking Status: Never smoker Second Hand Exposure: Yes (father smoked); Do You Dip or Chew Tobacco: No; Hx Alcohol Use: No Hx Substance Use: No Preferred Language: Kinyarwanda Communication Ability: Effective Communication Ability Comment: stroke Visual Impairment: No Limitations Hearing Ability: Hard of Hearing Quill Stripper Required: No Beliefs That Will Affect Care: None marital status: Current Living Situation: Spouse Current Living Situation Comment: and daughter 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 [employer] Other Information That Helps Us Care for You: No Feels Safe at Home: Yes Safety Concerns: Feels Safe At This Time Diet: other caffeine: Yes (Irregular use;) during the past year weight has: decreased > 10 lbs Assistive Devices: Glasses and Hospital Bed Review of Systems Review of Systems: All systems reviewed & are unremarkable except as noted in HPI & below Physical Exam Constitutional: no acute distress Respiratory: no respiratory distress and no labored breathing Neurologic: awake dysarthria (baseline) Psychiatric: Orientation: alert, oriented x 3 and cooperative Genitourinary: AUS pump to right hemiscrotum. There is no scrotal or testicular tenderness. No erythema or edema. No open areas. Results & Data Vital Signs (Past 12 Hours) Vital Signs Temp Pulse Pulse Resp BP BP Pulse Ox 12/21/24 07:25 36.3 C L 69 16 153/87 H 97 12/21/24 02:30 36.5 C 68 18 180/80 H 96 12/21/24 01:00 75 20 158/84 H 94 O2 Del Method 12/21/24 07:25 Room Air 12/21/24 02:30 Room Air 12/21/24 01:00 PG Care Time/CCT Total # of Minutes Spent Total Time Spent with Patient: Total time spent is greater than 50% in coordination of care (as documented) at patient's floor/unit and/or counseling patient: Coding Level of Care Code 77684 INT INP/OBS CARE 2/55MIN Diagnoses Malfunction of artificial urethral sphincter T83.111A Incontinence R32 Back pain M54.9
--- NOTE | 2024-12-21 14:13 | Discharge Summary ---
Discharge Summary Date of Service December 21, 2024 Principal Dx & Hospital Course #1 = Principal Diagnosis (1) Right-sided back pain: (2) Ambulatory dysfunction: (3) Urinary incontinence due to urethral sphincter incompetence: (4) Renal insufficiency: Plan Patient is an 84-year-old male with a past medical history of sick sinus syndrome s/p pacer, GERD, HTN, CESAR, HLD, CVA ( with residual dysarthria), prostate cancer s/p prostatectomy with residual incontinence and patient is s/p AUS 06/2019 with [facility] urologist Dr. Holguin. Patient presented via EMS after an episode this evening where he had severe left right back pain which radiated down his right leg. Pain has been present for 2 weeks however was worse this evening and he was unable to ambulate due to the pain. Patient has also had greater than 1 week of urinary incontinence and believes his AUS is not working properly. He is being admitted for further urology eval and evaluation of back pain. #right back pain with radiation/ambulatory dysfunction - AP CT without any significant acute changes. Laboratories WNL. patient with total resolution of symptoms after Valium x 2, Lidoderm patch placement. MRI deferred at this time. Symptoms and clinical examination consistent with exacerbation of lumbar radiculopathy - Discharge with Lidoderm patch on as needed basis, if symptoms return and are persistent for more than 24 to 48 hours he should contact the outpatient clinic, consider diazepam for acute spasm/exacerbation - No indication for ongoing medication use at this time #urinary incontinence history of AUS and bladder sling. Question if AUS malfunction or from spinal pathology. UA WNL, renal function mildly worsened from baseline likely 2/2 poor po intake. back to recent baseline, no intervention required, advised to follow-up with reconstructive urology service as previously referred - Informational packet reviewed and given to patient with regards to his AUS and catheterization usage #sick sinus syndromes/p pacer. #HTNcontinue amlodipine and losartan, holding Lozol #Hx CVAApril 2022, with residual mild aphasia - continue statin, holding Plavix with possible surgical management #OSACPAP at bedtime Admission HPI Per Admitting Provider Patient is an 84-year-old male with a past medical history of sick sinus syndrome s/p pacer, GERD, HTN, CESAR, HLD, CVA ( with residual dysarthria), prostate cancer s/p prostatectomy with residual incontinence and patient is s/p AUS 06/2019 with [facility] urologist Dr. Holguin. Patient presented via EMS after an episode this evening where he had severe left right back pain which radiated down his right leg. Pain has been present for 2 weeks however was worse this evening and he was unable to ambulate due to the pain. Patient has also had greater than 1 week of urinary incontinence and believes his AUS is not working properly. He is being admitted for further urology eval and evaluation of back pain. Patient seen at bedside with his and [id number] present. He endorses the above. He stated that the incontinence has been constant for the past week and that his button which is located in his scrotum to work the AUS is not working. Patient has dysarthria and is slow to respond to questioning. stated that they have been following with urology who noticed his PSA was slowly increasing and they were questioning starting radiation therapy however did not know where the cancer was located at. They switched to a urologist, Dr. Leigh, who wanted to hold off on radiation. They were told to look out for any leg pain as this could be signs of metastasis to bone so they are concerned about his pain this evening. pain is currently well-controlled as patient is laying in bed side, only occurs with ambulation. He denies any numbness or tingling. Patient also endorses poor p.o. intake for the past week as he did not want to keep having episodes of incontinence. He also has a history of bladder sling an d pacemaker. He uses CPAP at night for sleep apnea and with naps. He is due for his evening medications. He wishes to be full code. Discussion with ER provider who spoke with on-call urologist, caution with catheterization with history of AUS. If patient continues retaining urine (did have 200 mL postvoid bladder scan in ED) will need to use 12 Thai catheter. Patient does have a card at bedside which states how to use the AUS. Had him place this in his green plastic coat pocket and to go with him to his room if nursing needs it for assistance. Previous medical records from [facility] urology reviewed. AUS placed 07/08/[address] Holguin model number is [id number]. AUS was placed s/p R RP for prostate cancer which he was post prostatectomy incontinence and bladder sling did not fully relieve this. No complications of procedure noted Discharge Exam General: A&Ox3. NAD. Cooperative. HEENT: Atraumatic, normocephalic. Vision and hearing grossly intact. Pupils equal and reactive to light, sclera clear and anicteric Pulm: CTAB A&P. -wheezes, -rales, -rhonchi. No increased work of breathing. No respiratory distress. Cardiac: tachycardic. -mrg. Radial pulses intact and symmetrical. Abdominal: Nontender, nondistended, soft. BS present. Ext: No Edema, Moves all extremities equally NEURO: A&O as above, baseline expressive aphasia, straight leg test negative Skin: warm, moist. Discharge Plan Discharge Items Patient Disposition: Home - Self-Care Reason For Visit: URINARY RETENTION, BACK PAIN, URINARY INCONTINENCE Discharge Diagnosis: Incontinence, lumbar radiculopathy Condition on Discharge: Fair Activity: Resume your previous activity Non-emergency contact: Primary Care Provider Call non-emergency contact if: you have any medication questions, your symptoms worsen and your pain is worsening Follow-up/Referrals: Checo Maguire DO [Primary Care Provider] - Diet: Heart Healthy Addtl Attending Provider Instructions: Consider prn diazepam and lidoderm patch for recurrent radicular pain contineu follow-up with reconstructive urologist Pending Studies at Discharge: No Stand-Alone Forms: My [facility] [employer], Smoking Cessation Medications and DC Order Prescriptions: New lidocaine 5 % Adhesive Patch,Medicated 1 patch transdermal QAM Qty: 5 0RF Continued indapamide 1.25 mg tablet 1.25 mg PO QAM Qty: 90 3RF Myrbetriq 50 mg tablet extended release 24 hr 50 mg PO HS Qty: 90 3RF clopidogrel 75 mg tablet 75 mg PO QAM Qty: 90 3RF losartan 100 mg tablet 100 mg PO DAILY Qty: 90 3RF duloxetine 30 mg capsule,delayed release(DR/EC) 30 mg PO DAILY 90 Days Qty: 90 0RF gabapentin 400 mg capsule 400 mg PO HS 90 Days Qty: 90 3RF (DME) CPAP Machine Misc See Rx Instructions .MEDSUPPLY Qty: 1 0RF Rx Instructions: Auto CPAP 5-20 cm water pressure with heated humidification, tubing, and supplies. SHANELLE: 99+ years. amlodipine 5 mg tablet 5 mg PO DAILY Qty: 100 3RF atorvastatin 80 mg tablet 80 mg PO DAILY Qty: 100 3RF cyanocobalamin (vitamin B-12) [Vitamin B-12] 1,000 mcg Tablet 1,000 mcg PO QAM cholecalciferol (vitamin D3) [Vitamin D3] 2,000 unit Capsule 2,000 unit PO QAM One Daily For Men 0.4-600 mg-mcg Tablet 1 tab PO QAM clotrimazole-betamethasone 1-0.05 % cream 1 appln topical BID PRN (Reason: rash/itching) ibuprofen 200 mg Capsule 200 - 600 mg PO UD PRN (Reason: Pain) Hold Instructions: Resume on 11/04/23. avoid for a few weeks to protect your kidneys mometasone 50 mcg/actuation spray,non-aerosol 2 spray INTRANASAL HS PRN (Reason: Allergy Symptoms) Rx Instructions: administer into each nostril amoxicillin 500 mg tablet 2,000 mg PO ONCE PRN (Reason: APPOINTMENTS) Rx Instructions: take 30-60 minutes prior to dental procedure cetirizine [Zyrtec] 10 mg Tablet 10 mg PO DAILY acetaminophen 500 mg Tablet 500 mg PO Q6H PRN (Reason: PAIN/FEVER) Discharge Orders: Discharge Order (Routine); Ordered 12/21/24 Ordered By: Daniel Steel/Other Patient Handouts: Understanding Lumbar Radiculopathy Admission Data Admit Date/Time: 12/21/24 00:57 Attending Provider: Daniel Sykes Admit Provider: Gaye Goins Primary Care Provider: Checo Maguire Other Providers: [facility] Stay Data Consultations 12/21/24 02:47 Consult Urology Routine Diagnostic Imagining Performed 12/20/24 19:14 CT abd pelvis IV con only Stat 12/21/24 00:46 MRI Lumbar Spine [MR lumbar spine wo con] Stat Pending Results Patient Have Any Pending Studies at Discharge: No Discharge Instructions Given to Patient (Per Discharging Provider) Consider prn diazepam and lidoderm patch for recurrent radicular pain contineu follow-up with reconstructive urologist Total Time Total Time Spent Total Time Spent (In Minutes): 22 minutes spent reviewing records, discussing with urology and DC planning Coding Level of Care Code 26057 IN/OBS DISCH 30 MIN/LESS Diagnoses Right-sided back pain M54.9 Ambulatory dysfunction R26.2 Urinary incontinence due to urethral sphincter incompetence N36.42; R32 Renal insufficiency N28.9
[2024-12-21] MEDS ORDERED: GABAPENTIN 400 MG CAP PO SCH (21:00)
[2024-12-21] MEDS ORDERED: REMOVE LIDODERM PATCH SCH (21:00)
== END 2024-12-21 15:42 | disposition home or self-care (01) ==
LOC: 3N 19:05 → ED 19:05 → SUATTDRO 12-21 00:57 → 3N 12-21 02:15

== ENCOUNTER 2024-12-25 16:33 | Inpatient (IN) ==
[2024-12-25] MEDS: ONDANSETRON INJ 2 MG/ML 2 ML VIAL IV STA (16:43)
[2024-12-25] MEDS: ONDANSETRON INJ 2 MG/ML 2 ML VIAL ONE (16:43)
[2024-12-25] MEDS: MoRPHine SULFATE 4 MG/ML 1 ML CARP\\VIAL ONE (16:43)
[2024-12-25] MEDS: MoRPHine SULFATE 4 MG/ML 1 ML CARP\\VIAL IV STA ×2 (16:43→18:24)
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
[2024-12-25] MEDS: SODIUM CHLORIDE 0.9% 250 ML IV ONE (16:57)
[2024-12-25 17:00] LABS: Hematocrit (blood only) 45.4 % (42.0-52.0); Hemoglobin 15.6 g/dL (14.0-18.0); Immature Granulocytes # (auto) 0.03 K/uL (0.01-0.20); Immature Granulocytes % (auto) 0.2 %; Mean Corpuscular Hemoglobin 30.8 pg (25.0-34.0); Mean Corpuscular Volume 89.7 fL (80.0-100.0); Platelet Count 181 K/uL (130-400); RDW Standard Deviation 43.0 fL (36.4-46.3); Red Blood Count 5.06 M/uL (4.70-6.10); White Blood Count 15.82 K/ul (4.8-10.8)
[2024-12-25 17:17] LABS: Alanine Aminotransferase 29.0 U/L (7-52); Albumin Globulin Ratio 1.4 (0.9-2); Albumin Level 4.2 gm/dl (3.4-5.0); Alkaline Phosphatase 123.0 U/L (34-104); Anion Gap 6.0 (3-11); Bilirubin,Total 0.6 mg/dl (0.2-1.0); Blood Urea Nitrogen 24.0 mg/dl (6-23); Calcium 9.9 mg/dl (8.6-10.3); Carbon Dioxide 30.0 mmol/L (21-32); Chloride 105.0 mmol/L (98-107); Creatinine Clr Calc Pharmacy 43.6 ml/min; Globulin 3.0 gm/dl (2.5-4.0); Glucose 123.0 mg/dl (70-99(Fasting)); Lipase 29.0 U/L (11-82); Potassium 4.1 mmol/L (3.5-5.1); Sodium 141.0 mmol/L (136-145); Total Protein 7.2 gm/dl (6.0-8.3)
[2024-12-25 17:27] LABS: INR 1.1 (0.9-1.1); Partial Thromboplastin Time 29 Seconds (21-31); Prothrombin Time 11.4 Seconds (9.0-12.0)
--- NOTE | 2024-12-25 18:08 | XRay Report ---
Clinical History: Chest pain Technique: A frontal view of the chest was obtained Comparison is made with the prior examination dated 10/18/2033 Findings: There is mild interstitial prominence which could be due to pulmonary vascular congestion. The heart size is within normal limits. No pleural effusion or pneumothorax is seen. There is no definite pulmonary nodule. No fracture is noted. There is a left chest wall pacemaker device. There is a left shoulder arthroplasty. There is right glenohumeral osteoarthritis Impression: Suspected mild pulmonary vascular congestion Electronically signed by Yordy Randolph 12-25-2024 6:07 PM
[2024-12-25] MEDS ORDERED: ONDANSETRON INJ 2 MG/ML 2 ML VIAL IV PRN (18:23)
[2024-12-25] MEDS ORDERED: ALUMINUM/MAGNESIUM SUSP 30 ML UDC PO PRN (18:23)
[2024-12-25] MEDS ORDERED: POLYETHYLENE (MIRALAX) 17 GM PACK PO PRN (18:23)
[2024-12-25] MEDS: ALUMINUM/MAGNESIUM SUSP 30 ML UDC PO STA (18:33)
[2024-12-25] MEDS: ACETAMINOPHEN 325 MG TAB PO PRN (18:33)
--- NOTE | 2024-12-25 18:39 | History & Physical Report ---
Date of Service December 25, 2024 Assessment & Plan (1) Chest pain: (2) Hypertension: (3) Aortic stenosis: (4) Heart block: (5) Aphasia: Plan This is an 84 year old male with PMHx of HTN, HLD, heart block s/p pacemaker, urinary incontinence due to urethral sphincter incompetence who presented to the ED on 12/25/2024 for chest pain. While in the ED, he was found to have a negative troponin. WBC was mildly elevated at 15.82, no anemia present on CBC. Creat elevated at 1.63 but appears baseline for patient. LFTs w/ mild alk phos elevation which also appears at baseline for patient. Lipase WNL. CXR w/ suspected mild pulmonary vascular congestion. He was given Morphine, Zofran, and 250cc of IVF while in the ED. #Chest pain w/ acute onset after eating dinner & driving home [employer]LY[employer]. EMS was summoned. Still having CP at time of admission. EKG x 3 w/ paced rhythm, no signs of ischemia --> repeat if pain worsens/trop rises Trop neg x 1, continue to trend q6h overnight CXR w/ suspected mild pulmonary vascular congestion. Echo ordered & pending s/p morphine + nitro w/ minimal improvement. reports no hx of GERD although is in problem dx --> recommend IV PPI + GI cocktail to see if symptoms improve. Morphine prn for pain. Continuous monitoring on tele #HTN HTN at time of admission w/ BP 155/87 likely secondary to pain Continue home regimen of amlodipine, indapamide, and losartan #Hx CVA Chronic dysphagia at baseline Continue Plavix #HLD - Continue statin #Mental health - Continue duloxetine #neuropathy - continue gabapentin #urinary incontinence has an artifical sphincter presently not functioning well. Follows w/ [facility] regarding this. Family wanted to make staff aware Continue mirabegron #Allergies - Zyrtec DVT prophylaxis: SCD's Code: full Case was discussed with Dr. Yañez at time of admission. updated family at bedside 12/25. History of Present Illness Primary Care Provider: Checo Maguire DO This is an 84 year old male with PMHx of HTN, HLD, heart block s/p pacemaker, urinary incontinence due to urethral sphincter incompetence who presented to the ED on 12/25/2024 for chest pain. The patient was seen & examined w/ his family at bedside. He reports his CP started abruptly while driving home from dinner this evening. Reports EMS was then called & patient was brought to the ED. Presently, he is still experiencing significant pain in his chest. He denies any hx of STEMI in the past. He has a pacemaker present. He reports pain w/ taking a deep breath. Denies any nausea, vomiting. Reports he does not have a hx of indigestion. He denies any LE edema. Denies any abdominal pain. He did complain of a headache that started after receiving nitroglycerin. While in the ED, he was found to have a negative troponin. WBC was mildly elevated at 15.82, no anemia present on CBC. Creat elevated at 1.63 but appears baseline for patient. LFTs w/ mild alk phos elevation which also appears at baseline for patient. Lipase WNL. CXR w/ suspected mild pulmonary vascular congestion. He was given Morphine, Zofran, and 250cc of IVF while in the ED. Code discussion did take place and he does confirm that he is a full code. Allergies Allergy/AdvReac Type Severity Reaction Status Date / Time No Known Drug Allergies Allergy Unknown Verified 12/23/24 11:37 Home Medications Medication Instructions Recorded Confirmed Type cholecalciferol (vitamin D3) 50 2,000 unit PO QAM 04/02/18 12/25/24 History mcg (2,000 unit) capsule (Vitamin D3) cyanocobalamin (vitamin B-12) 1,000 mcg PO QAM 04/02/18 12/25/24 History 1,000 mcg tablet (Vitamin B-12) clotrimazole-betamethasone 1 1 appln topical BID PRN 04/01/19 12/25/24 History %-0.05 % topical cream rash/itching multivit with minerals-folic 1 tab PO QAM 04/01/19 12/25/24 History acid-lycopene 0.4 mg-600 mcg tablet (One Daily For Men) ibuprofen 200 mg capsule 200 - 600 mg PO UD PRN Pain 04/29/19 12/25/24 History CPAP Machine #1 ea 04/12/21 12/25/24 Rx acetaminophen 500 mg tablet 500 mg PO Q6H PRN PAIN/FEVER 10/19/23 12/25/24 History cetirizine 10 mg tablet (Zyrtec) 10 mg PO DAILY 10/19/23 12/25/24 History indapamide 1.25 mg tablet 1.25 mg PO QAM #90 tabs 12/18/23 12/25/24 Rx mometasone 50 mcg/actuation nasal 2 spray intranasal HS PRN Allergy 01/08/24 12/25/24 History spray Symptoms mirabegron 50 mg tablet,extended 50 mg PO HS #90 tabs 01/14/24 12/25/24 Rx release 24 hr (Myrbetriq) clopidogrel 75 mg tablet 75 mg PO QAM #90 tabs 04/17/24 12/25/24 Rx losartan 100 mg tablet 100 mg PO DAILY #90 tabs 06/10/24 12/25/24 Rx amlodipine 5 mg tablet 5 mg PO DAILY #100 tabs 07/08/24 12/25/24 Rx atorvastatin 80 mg tablet 80 mg PO DAILY #100 tabs 07/08/24 12/25/24 Rx duloxetine 30 mg capsule,delayed 30 mg PO DAILY 90 days #90 caps 12/16/24 12/25/24 Rx release amoxicillin 500 mg tablet 2,000 mg PO ONCE PRN APPOINTMENTS 12/21/24 12/25/24 History gabapentin 300 mg capsule 300 mg PO QAM 12/22/24 12/25/24 History cyclobenzaprine 5 mg tablet 5 mg PO TID PRN muscle spasm #30 12/23/24 12/25/24 Rx tabs gabapentin 400 mg capsule 400 mg PO BID 90 days #180 caps 12/23/24 12/25/24 Rx lidocaine 5 % topical patch 1 patch transdermal QAM #5 ea 12/23/24 12/25/24 Rx Past Med/Surg History Problem List (Updated 12/25/24 @ 18:46 by Keaton Drummond DO) Chest pain (Acute) Incontinence Malfunction of artificial urethral sphincter (Acute) Acute flank pain (Acute) Back pain (Acute) MOE (acute kidney injury) (Acute) Renal insufficiency Urinary incontinence due to urethral sphincter incompetence Ambulatory dysfunction Right-sided back pain Obstructive sleep apnea Dyslipidemia Memory loss SHORT TERM MEMORY ISSUES, EVAL DONE 5 YR AGO - NO FINDINGS, NO WORSENING Of PROBLEM OVER LAST 5 YR Neoplasm of prostate, malignant HX OF 2003 Urinary incontinence Artificial urethral sphincter implanted recently - follows with urology with [facility] Cervical arthritis Neuropathy Hyperglycemia Aortic stenosis Heart block Syncope Acute CVA (cerebrovascular accident) (Acute) Aphasia (Acute) Medical History Sick sinus syndrome Sinus pause Syncope and collapse SNHL (sensorineural hearing loss) Osteoarthritis, shoulder Hypertension Kidney stones No current issues GERD (gastroesophageal reflux disease) Controlled and stable Hearing deficit Cardiac murmur Surgical History History of reverse total replacement of left shoulder joint (~08/2019) History of surgery URETHRAL CUFF 07/08/2019 [facility] History of lithotripsy History of lymph node biopsy Status post bilateral foot surgery FOR INGROWN TOENAILS History of carpal tunnel surgery of right wrist Hx of vasectomy History of colonoscopy (~2007) History of bladder surgery bladder sling placed in 2005 History of prostatectomy 12/28/2003 History of wisdom tooth extraction History of tonsillectomy and adenoidectomy History of bilateral cataract extraction Family History Mother , 83yo Diabetes H/O angioplasty Stroke Father , 79yo Cirrhosis of liver Lung cancer Alcoholic Sister Stroke Son Schizophrenia Bipolar disorder PTSD (post-traumatic stress disorder) Daughter Not currently working due to disabled status As a result of an MVA Other No family history of adverse response to anesthesia Denies family history of Clotting disorder Social History Smoking Status: Never smoker Second Hand Exposure: Yes (father smoked); Do You Dip or Chew Tobacco: No; Hx Alcohol Use: Yes Alcohol type: beer Hx Substance Use: No Preferred Language: Somali Communication Ability: Effective Communication Ability Comment: stroke Visual Impairment: No Limitations Hearing Ability: Hard of Hearing Instructor Psychiatric Aide Required: No Beliefs That Will Affect Care: None marital status: Current Living Situation: Spouse Current Living Situation Comment: Home with 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 Abd: normal bowel sounds, + tender to epigastric area, soft Extremities: Moves all extremities, no edema Neuro: A&O x3, dysphagia present Skin: intact, no lesions noted Results & Data Results & Data Vital Signs (Past 12 Hours) Vital Signs Temp Pulse Pulse Resp BP BP Pulse Ox 12/25/24 18:19 92 H 16 155/87 H 95 12/25/24 17:00 87 20 117/67 93 12/25/24 16:45 36.8 C 95 H 21 117/63 92 12/25/24 16:40 93 H O2 Del Method 12/25/24 18:19 Room Air 12/25/24 17:00 Room Air 12/25/24 16:45 Room Air 12/25/24 16:40 Supervising Physician Co-Signing Physician Notes The patient was seen by me. The chart was reviewed. Case discussed with YUMIKO Mathur. On admission, the patient's chest pain was reproducible with palpation and worse with deep breathing and probably not of cardiac etiology. His severe headache on admission is thought to be due to sublingual nitroglycerin administered by EMS and route to the ER. The patient was alert and oriented without any neurological deficits at the time of my examination. Agree with assessment and plan PG Care Time/CCT Total # of Minutes Spent Total Time Spent with Patient: Total time spent is greater than 50% in coordination of care (as documented) at patient's floor/unit and/or counseling patient: Coding Level of Care Code 37164 INT INP/OBS CARE 3/75MIN Diagnoses Chest pain R07.9 Chest pain type: unspecified Hypertension I10 Aortic stenosis I35.0 Heart block I45.9 Aphasia R47.01 (1) Chest pain Chest pain type: unspecified Qualified Code(s): R07.9 - Chest pain, unspecified
[2024-12-25] MEDS: PANTOprazole 40 MG/10 ML SYR IV ONE (18:43)
[2024-12-25] MEDS ORDERED: MoRPHine SULFATE 4 MG/ML 1 ML CARP\\VIAL IV PRN (21:04)
[2024-12-25] MEDS ORDERED: MoRPHine SULFATE 2 MG/ML CARP IV PRN (21:04)
[2024-12-25] MEDS ORDERED: CYCLOBENZAPRINE HCL 10 MG TAB PO PRN (21:14)
[2024-12-25] MEDS: GABAPENTIN 400 MG CAP PO SCH (22:09)
[2024-12-25] MEDS: VIBEGRON 75 MG TAB PO SCH (22:10)
[2024-12-25] MEDS: REMOVE LIDODERM PATCH SCH (22:53)
[2024-12-26 06:43] LABS: Hematocrit (blood only) 40.0 % (42.0-52.0); Hemoglobin 14.3 g/dL (14.0-18.0); Mean Corpuscular Hemoglobin 31.9 pg (25.0-34.0); Mean Corpuscular Volume 89.3 fL (80.0-100.0); Platelet Count 156 K/uL (130-400); RDW Standard Deviation 42.6 fL (36.4-46.3); Red Blood Count 4.48 M/uL (4.70-6.10); White Blood Count 11.87 K/ul (4.8-10.8)
[2024-12-26 07:31] LABS: Anion Gap 7.0 (3-11); Blood Urea Nitrogen 25.0 mg/dl (6-23); Calcium 9.5 mg/dl (8.6-10.3); Carbon Dioxide 28.0 mmol/L (21-32); Chloride 103.0 mmol/L (98-107); Cholesterol 113.0 mg/dl (0-200); Creatinine Clr Calc Pharmacy 52.6 ml/min; Glucose 116.0 mg/dl (70-99(Fasting)); HDL Cholesterol 59.0 mg/dl; Potassium 4.1 mmol/L (3.5-5.1); Sodium 138.0 mmol/L (136-145); Triglycerides 53.0 mg/dl (0-150)
--- NOTE | 2024-12-26 08:38 | Electrocardiogram Report ---
Test Reason : Blood Pressure : */* mmHG Vent. Rate : 94 BPM Atrial Rate : 94 BPM P-R Int : 168 ms QRS Dur : 160 ms QT Int : 418 ms P-R-T Axes : 47 -64 94 degrees QTcB Int : 522 ms Atrial-sensed ventricular-paced rhythm Abnormal ECG When compared with ECG of 20-Dec-2024 19:40, Vent. rate has increased by 28 bpm Confirmed by Zbigniew Yang ([id number]) on 12/26/2024 8:37:49 AM Referred By: REFERRED SELF Confirmed By: Zbigniew Yang
[2024-12-26] MEDS: ATORVASTATIN 40 MG TAB PO SCH (09:25)
[2024-12-26] MEDS: CETIRIZINE HCL 10 MG TABLET PO SCH (09:25)
[2024-12-26] MEDS: CHOLECALCIFEROL 25 MCG (1000 UNITS) TAB PO SCH (09:26)
[2024-12-26] MEDS: CYANOCOBALAMIN (B-12) 500 MCG TABLET PO SCH (09:26)
[2024-12-26] MEDS: CLOPIDOGREL BISULFATE 75 MG TAB PO SCH (09:26)
[2024-12-26] MEDS: INDAPAMIDE 1.25 MG TAB PO SCH (09:27)
[2024-12-26] MEDS: LIDOCAINE 5% 1 PATCH TD SCH (09:28)
[2024-12-26] MEDS: LOSARTAN POTASSIUM 50 MG TAB PO SCH (09:29)
[2024-12-26] MEDS: PANTOprazole 40 MG/10 ML SYR IV SCH (09:29)
--- NOTE | 2024-12-26 12:31 | Electrocardiogram Report ---
Test Reason : Blood Pressure : */* mmHG Vent. Rate : 79 BPM Atrial Rate : 79 BPM P-R Int : 166 ms QRS Dur : 168 ms QT Int : 442 ms P-R-T Axes : 15 -55 90 degrees QTcB Int : 506 ms Atrial-sensed ventricular-paced rhythm Abnormal ECG When compared with ECG of 25-Dec-2024 17:52, (unconfirmed) Vent. rate has decreased by 12 bpm Confirmed by Keaton Roberts ([id number]) on 12/26/2024 12:31:05 PM Referred By: REFERRED SELF Confirmed By: Keaton Roberts
--- NOTE | 2024-12-26 12:44 | XCELERA ---
[id number]
--- NOTE | 2024-12-26 13:08 | Hospitalist Progress Note ---
Date of Service December 26, 2024 Assessment & Plan (1) Chest pain: (2) Hypertension: (3) Aortic stenosis: (4) Heart block: (5) Aphasia: Plan This is an 84 year old male with PMHx of HTN, HLD, heart block s/p pacemaker, urinary incontinence due to urethral sphincter incompetence who presented to the ED on 12/25/2024 for chest pain. 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 Tender to palpation of chest wall, possible costochondritis ? EKG x 4 w/ paced rhythm, no signs of ischemia Trop has been slowly rising w/ 24.3 --> 29.3 --> 40.3, continue to trend in the setting of active chest discomfort. CXR w/ suspected mild pulmonary vascular congestion; Chest CTA negative for PE. Echo: EF 65-70%; moderate valvular aortic stenosis. reports no hx of GERD although is in problem dx --> continue IV PPI Morphine prn for severe pain. Continuous monitoring on tele #HTN Continue home regimen of amlodipine, indapamide, and losartan #Hx CVA Chronic dysphagia at baseline Continue Plavix #HLD - Continue statin #Mental health - Continue duloxetine #neuropathy - continue gabapentin #urinary incontinence has an artificial sphincter presently not functioning well. Follows w/ [facility] regarding this. Family wanted to make staff aware Continue mirabegron #Allergies - Zyrtec DVT prophylaxis: SCD's, Lovenox Code: full updated family at bedside 12/26. Admission and Anticipated Discharge Date Admission Date: December 25, 2024 Supervising Physician Co-Signing Physician Notes The patient was not seen by me. The chart was reviewed. Case discussed with YUMIKO Mathur. Agree with assessment and plan Subjective Elmer was seen & examined this afternoon with his present. He is endorsing still having chest pain upon inspiration. He reports he does feel better than yesterday but is still experiencing discomfort. He reports it is not worse with eating. He is unsure what medications helped yesterday since he was given a lot. He has not had any doses of morphine thus far today. Physical Exam Physical Exam: General: NAD, VS: BP 127/74; P80; R17; T37 Resp: normal respiratory effort, lungs clear to auscultation CV: RRR, no murmur Extremities: Moves all extremities, no edema Neuro: A&O x3, + aphasia Skin: intact, no lesions noted Results & Data Results & Data Vital Signs (Past 12 Hours) Vital Signs Temp Pulse Pulse Resp BP BP Pulse Ox 12/26/24 11:35 37.0 C 80 17 127/74 95 12/26/24 07:14 80 12/26/24 07:13 36.8 C 83 16 133/70 95 12/26/24 02:11 36.6 C 74 16 103/60 94 O2 Del Method O2 Flow Rate 12/26/24 11:35 Nasal Cannula 1 12/26/24 07:14 12/26/24 07:13 Nasal Cannula 2 12/26/24 02:11 Nasal Cannula 2 PG Care Time/CCT Total # of Minutes Spent Total Time Spent with Patient: Total time spent is greater than 50% in coordination of care (as documented) at patient's floor/unit and/or counseling patient: Coding Level of Care Code 70823 SUB INP/OBS CARE 2/35MIN Diagnoses Chest pain R07.9 Chest pain type: unspecified Hypertension I10 Aortic stenosis I35.0 Heart block I45.9 Aphasia R47.01 (1) Chest pain Chest pain type: unspecified Qualified Code(s): R07.9 - Chest pain, unspecified
[2024-12-26] MEDS: OPTIRAY 320 125ml IV ONE (14:08)
--- NOTE | 2024-12-26 14:38 | CT Scan Report ---
EXAM: CT Chest With Intravenous Contrast INDICATION: Inspiratory chest pain. TECHNIQUE: Axial computed tomography images of the chest with intravenous contrast. Sagittal and coronal reformatted images were created and reviewed. This CT exam was performed using one or more of the following dose reduction techniques: automated exposure control, adjustment of the mA and/or kV according to patient size, and/or use of iterative reconstruction technique. CONTRAST: 79 ml of Optiray 320 was administered intravenously. COMPARISON: No relevant prior studies available. FINDINGS: Limitations: None. Lungs and pleural spaces: There is coarse parenchymal infiltrate in the dependent lower lobes with small bilateral layering pleural effusions. Predominantly linear opacities noted in the right upper lobe likely atelectasis and/or scar. No bronchiectasis. No pneumothorax. Heart: Enlarged. No evidence of right heart strain. Cardiac pacing device present. Metallic artifact limits assessment of lead integrity. No pericardial effusion. Thyroid: No abnormality noted. Bones/joints: Degenerative changes noted throughout the spine. No acute osseous abnormality seen. Soft tissues: No acute abnormality noted. Vasculature: No abnormality noted. No thoracic aortic aneurysm. Lymph nodes: No enlarged lymph nodes. IMPRESSION: 1. No pulmonary embolus noted. 2. Very small bilateral pleural effusions with dependent bilateral lower lobe atelectasis and asymmetric coarse infiltrate in the right upper lobe likely atelectasis. Component of infectious pneumonitis not asked noted. ACT 112: N/A Electronically signed by Fabiola Cyr 12-26-2024 2:37 PM
[2024-12-26] MEDS: ENOXAPARIN INJ 40 MG/0.4 ML SYR SQ SCH (20:15)
[2024-12-26] MEDS ORDERED: REMOVE LIDODERM PATCH SCH (21:00)
[2024-12-27 07:48] VITALS: PULSE 60; RESP 17; TEMP 98.3; O2SAT 95
--- NOTE | 2024-12-27 09:07 | Discharge Summary ---
Discharge Summary Date of Service December 27, 2024 Principal Dx & Hospital Course #1 = Principal Diagnosis (1) Chest pain: (2) Hypertension: (3) Aortic stenosis: (4) Heart block: (5) Aphasia: Plan This is an 84 year old male with PMHx of HTN, HLD, heart block s/p pacemaker, urinary incontinence due to urethral sphincter incompetence who presented to the ED on 12/25/2024 for chest pain. #Chest pain w/ acute onset after eating dinner & driving home [employer]. EMS was summoned. Tender to palpation of chest wall, possible costochondritis vs musculoskeletal strain ? EKG x 4 w/ paced rhythm, no signs of ischemia Trop peaked at 56.9 and has since downtrended. CXR w/ suspected mild pulmonary vascular congestion; Chest CTA negative for PE. Echo: EF 65-70%; moderate valvular aortic stenosis. reports no hx of GERD although is in problem dx --> continue PPI on dc. Can use Tylenol for pain on discharge. #HTN- Continue home regimen of amlodipine, indapamide, and losartan #Hx CVA- Chronic aphasia at baseline; Continue Plavix #HLD - Continue statin #Mental health - Continue duloxetine #neuropathy - continue gabapentin #urinary incontinence has an artificial sphincter presently not functioning well. Follows w/ [facility] [place] regarding this. Family wanted to make staff aware Continue mirabegron #Allergies - Zyrtec Discharged home 12/27. Notes For Next Care Provider Unsure what is related to his chest pain, STEMI & PE have been ruled out. Suspect musculoskeletal vs GI in origin. Sent home on PPI but if does not improve symptoms, advised patient to stop it after 30 day trial. Admission HPI Per Admitting Provider This is an 84 year old male with PMHx of HTN, HLD, heart block s/p pacemaker, urinary incontinence due to urethral sphincter incompetence who presented to the ED on 12/25/2024 for chest pain. The patient was seen & examined w/ his family at bedside. He reports his CP started abruptly while driving home from dinner this evening. Reports EMS was then called & patient was brought to the ED. Presently, he is still experiencing significant pain in his chest. He denies any hx of STEMI in the past. He has a pacemaker present. He reports pain w/ taking a deep breath. Denies any nausea, vomiting. Reports he does not have a hx of indigestion. He denies any LE edema. Denies any abdominal pain. He did complain of a headache that started after receiving nitroglycerin. While in the ED, he was found to have a negative troponin. WBC was mildly elevated at 15.82, no anemia present on CBC. Creat elevated at 1.63 but appears baseline for patient. LFTs w/ mild alk phos elevation which also appears at baseline for patient. Lipase WNL. CXR w/ suspected mild pulmonary vascular congestion. He was given Morphine, Zofran, and 250cc of IVF while in the ED. Code discussion did take place and he does confirm that he is a full code. Discharge Exam General: NAD, VS: BP 131/70; P60; R16; T36.8C Resp: normal respiratory effort, lungs clear to auscultation CV: RRR, no murmur Extremities: no edema Neuro: A&O x3, aphasia noted Skin: intact, no lesions noted Discharge Plan Discharge Items Patient Disposition: Home - Self-Care Reason For Visit: CHEST PAIN Discharge Diagnosis: Chest pain Condition on Discharge: Fair Activity: Resume your previous activity Non-emergency contact: Primary Care Provider Call non-emergency contact if: you have any medication questions, your symptoms worsen and your pain is not controlled Follow-up/Referrals: Checo Maguire DO [Primary Care Provider] - 01/04/25 9:30 am Diet: Heart Healthy Addtl Attending Provider Instructions: Mr. Flower, Abdelrahman were recently hospitalized for an abrupt onset of chest pain. Fortunately, a heart attack and a blood clot have been ruled out. Your pain is reproducible on examination which indicates that it is likely a musculoskeletal cause. You were also tender in your upper abdominal region which could indicate it could be related to indigestion or acid reflux. Youh have been placed on medication in the event that is is a GI cause. Medications: Your medication list has been reviewed and reconciled upon discharge to ensure accuracy and continuity of care. An updated list of all your medications is included with your hospital discharge paperwork. Please review this list closely, and make note of any changes. Please take Pantoprazole 40mg once daily for acid reflux. Your first dose will be tomorrow morning, 12/27. Take your medications as instructed; do not skip a dose of your medicines. Make sure all of your doctors know every medicine you are taking (including yqom-ovp-hsfilpg medicines, vitamins, and supplements). Call your primary care provider before taking any new medicines (including over- the-counter medicines, vitamins, and supplements), because some of these may interact with your current medications, or may make your symptoms worse. Tell your primary care provider if you cannot afford your medications. Activity: You can do normal everyday activities as your body allows. Take rest breaks if you feel tired. Do not overexert. Stop activity if you have pain, shortness of breath or feel dizzy. Follow-up appointments: Make an appointment with your primary care physician within one week of discharge. A copy of this summary will be sent to them. Every time you see your primary care physician, or any other doctor, bring your medication list, and a list of questions. CONTACT YOUR PRIMARY CARE PROVIDER if you experience any of the following: Shortness of breath or difficulty breathing Fevers or chills Feeling tired with normal activity or experiencing dizziness or fainting Difficulty following your treatment plan, or difficulty taking medications CALL 911 OR GO TO THE EMERGENCY DEPARTMENT if you experience any of the following: Severe abdominal pain or nausea/vomiting Severe chest pain, or chest pain that radiates (moves) to your jaw or arm Sudden, severe shortness of breath or difficulty breathing Thank you for allowing us to participate in your care. Pending Studies at Discharge: No Stand-Alone Forms: My [facility] [place], Smoking Cessation Medications and DC Order Prescriptions: New pantoprazole 40 mg tablet,delayed release (DR/EC) 40 mg PO DAILY Qty: 30 0RF Continued indapamide 1.25 mg tablet 1.25 mg PO QAM Qty: 90 3RF Myrbetriq 50 mg tablet extended release 24 hr 50 mg PO HS Qty: 90 3RF clopidogrel 75 mg tablet 75 mg PO QAM Qty: 90 3RF losartan 100 mg tablet 100 mg PO DAILY Qty: 90 3RF duloxetine 30 mg capsule,delayed release(DR/EC) 30 mg PO DAILY 90 Days Qty: 90 0RF cyclobenzaprine 5 mg tablet 5 mg PO TID PRN (Reason: muscle spasm) Qty: 30 0RF lidocaine 5 % adhesive patch,medicated 1 patch transdermal QAM Qty: 5 1RF gabapentin 400 mg capsule 400 mg PO BID 90 Days Qty: 180 3RF amlodipine 5 mg tablet 5 mg PO DAILY Qty: 100 3RF atorvastatin 80 mg tablet 80 mg PO DAILY Qty: 100 3RF gabapentin 300 mg capsule 300 mg PO QAM Hold Instructions: Home Medication placed on hold at Doctor's office cyanocobalamin (vitamin B-12) [Vitamin B-12] 1,000 mcg Tablet 1,000 mcg PO QAM cholecalciferol (vitamin D3) [Vitamin D3] 2,000 unit Capsule 2,000 unit PO QAM One Daily For Men 0.4-600 mg-mcg Tablet 1 tab PO QAM clotrimazole-betamethasone 1-0.05 % cream 1 appln topical BID PRN (Reason: rash/itching) ibuprofen 200 mg Capsule 200 - 600 mg PO UD PRN (Reason: Pain) Hold Instructions: Resume on 11/04/23. avoid for a few weeks to protect your kidneys mometasone 50 mcg/actuation spray,non-aerosol 2 spray INTRANASAL HS PRN (Reason: Allergy Symptoms) Rx Instructions: administer into each nostril amoxicillin 500 mg tablet 2,000 mg PO ONCE PRN (Reason: APPOINTMENTS) Rx Instructions: take 30-60 minutes prior to dental procedure cetirizine [Zyrtec] 10 mg Tablet 10 mg PO DAILY acetaminophen 500 mg Tablet 500 mg PO Q6H PRN (Reason: PAIN/FEVER) No Action (DME) CPAP Machine Misc See Rx Instructions .MEDSUPPLY Qty: 1 0RF Rx Instructions: Auto CPAP 5-20 cm water pressure with heated humidification, tubing, and supplies. SHANELLE: 99+ years. Discharge Orders: Discharge Order (Routine); Ordered 12/27/24 Ordered By: Mary Jo Colón Admission Data Admit Date/Time: 12/25/24 18:23 Attending Provider: Panchito Yañez Admit Provider: Panchito Yañez Primary Care Provider: Checo Maguire Other Providers: Panchito Yañez Other Interventions: Discharge Summary Assessment (RN) Last Done: 12/27/24 12:35 Hospital Stay Data Consultations 12/25/24 18:11 ED Decision to Admit Stat Diagnostic Imagining Performed 12/26/24 13:04 CT angio chest PE protocol Urgent Pending Results Patient Have Any Pending Studies at Discharge: No Discharge Instructions Given to Patient (Per Discharging Provider) Mr. Mundo, You were recently hospitalized for an abrupt onset of chest pain. Fortunately, a heart attack and a blood clot have been ruled out. Your pain is reproducible on examination which indicates that it is likely a musculoskeletal cause. You were also tender in your upper abdominal region which could indicate it could be related to indigestion or acid reflux. Youh have been placed on medication in the event that is is a GI cause. Medications: Your medication list has been reviewed and reconciled upon discharge to ensure accuracy and continuity of care. An updated list of all your medications is included with your hospital discharge paperwork. Please review this list closely, and make note of any changes. Please take Pantoprazole 40mg once daily for acid reflux. Your first dose will be tomorrow morning, 12/27. Take your medications as instructed; do not skip a dose of your medicines. Make sure all of your doctors know every medicine you are taking (including lqba-vxe-ohnemkm medicines, vitamins, and supplements). Call your primary care provider before taking any new medicines (including over- the-counter medicines, vitamins, and supplements), because some of these may interact with your current medications, or may make your symptoms worse. Tell your primary care provider if you cannot afford your medications. Activity: You can do normal everyday activities as your body allows. Take rest breaks if you feel tired. Do not overexert. Stop activity if you have pain, shortness of breath or feel dizzy. Follow-up appointments: Make an appointment with your primary care physician within one week of discharge. A copy of this summary will be sent to them. Every time you see your primary care physician, or any other doctor, bring your medication list, and a list of questions. CONTACT YOUR PRIMARY CARE PROVIDER if you experience any of the following: Shortness of breath or difficulty breathing Fevers or chills Feeling tired with normal activity or experiencing dizziness or fainting Difficulty following your treatment plan, or difficulty taking medications CALL 911 OR GO TO THE EMERGENCY DEPARTMENT if you experience any of the following: Severe abdominal pain or nausea/vomiting Severe chest pain, or chest pain that radiates (moves) to your jaw or arm Sudden, severe shortness of breath or difficulty breathing Thank you for allowing us to participate in your care. Supervising Physician Co-Signing Physician Notes The patient was not seen by me. The chart was reviewed. Case discussed with YUMIKO Mathur. Agree with assessment and plan Total Time Total Time Spent Total Time Spent (In Minutes): 45 Total Time Includes: Examination of the Patient, Discharge Planning and Medication Reconciliation Coding Level of Care Code 60011 INP/OBS DISCH >30 MIN Diagnoses Chest pain R07.9 Chest pain type: unspecified Hypertension I10 Aortic stenosis I35.0 Heart block I45.9 Aphasia R47.01
--- NOTE | 2024-12-27 11:47 | Electrocardiogram Report ---
Test Reason : Blood Pressure : */* mmHG Vent. Rate : 91 BPM Atrial Rate : 91 BPM P-R Int : 166 ms QRS Dur : 166 ms QT Int : 426 ms P-R-T Axes : 54 -65 100 degrees QTcB Int : 523 ms Atrial-sensed ventricular-paced rhythm Abnormal ECG When compared with ECG of 25-Dec-2024 17:09, (unconfirmed) Vent. rate has increased by 3 bpm Confirmed by Keaton Roberts ([id number]) on 12/27/2024 11:47:09 AM Referred By: REFERRED SELF Confirmed By: Keaton Roberts
--- NOTE | 2024-12-27 11:53 | Electrocardiogram Report ---
Test Reason : Blood Pressure : */* mmHG Vent. Rate : 60 BPM Atrial Rate : 57 BPM P-R Int : * ms QRS Dur : 164 ms QT Int : 468 ms P-R-T Axes : * 1 -2 degrees QTcB Int : 468 ms Ventricular-paced rhythm Abnormal ECG When compared with ECG of 26-Dec-2024 05:27, Vent. rate has decreased by 19 bpm Confirmed by Keaton Roberts ([id number]) on 12/27/2024 11:52:45 AM Referred By: REFERRED SELF Confirmed By: Keaton Roberts
[2024-12-27 12:36] VITALS: BP 131/70
--- NOTE | 2024-12-27 21:53 | Electrocardiogram Report ---
Test Reason : Blood Pressure : */* mmHG Vent. Rate : 88 BPM Atrial Rate : 88 BPM P-R Int : 174 ms QRS Dur : 160 ms QT Int : 428 ms P-R-T Axes : 55 -65 95 degrees QTcB Int : 517 ms Atrial-sensed ventricular-paced rhythm Abnormal ECG When compared with ECG of 25-Dec-2024 16:38, Vent. rate has decreased by 6 bpm Confirmed by Marvel Britt ([id number]) on 12/27/2024 9:53:20 PM Referred By: REFERRED SELF Confirmed By: Marvel Britt
== END 2024-12-27 12:39 | disposition home or self-care (01) | DRG 313 ==
LOC: SUATTDRO → ED 16:33 → 2N 18:23